=== PATIENT | female | born 1940 | race Caucasian/White ===

== ENCOUNTER → 2017-03-14 | Outpatient (CLI) | payer OTHER, MEDICARE ==
[~2017-03-14] MED LIST: ANAS1TAB19 PO; ASCAUNK PO; ASPEC81 PO; LISI40TA PO; MULT-506 PO; OMEG10007 PO; TRVOPS OPB
--- NOTE | 2017-03-14 14:47 | MAMMOGRAPHY REPORT ---
BILATERAL DIGITAL SCREENING MAMMOGRAM TOMOSYNTHESIS WITH CAD: 03/14/2017 CLINICAL HISTORY: Asymptomatic. Personal history of breast cancer. TECHNIQUE: Breast tomosynthesis in addition to standard 2D mammography was performed. Current study was also evaluated with a Computer Aided Detection (CAD) system. COMPARISON: Comparison is made to exams dated: 03/09/2016 ultrasound, 03/09/2016 mammogram, 03/08/2015 mammogram, 03/06/2014 mammogram, 03/05/2013 mammogram, and 03/04/2012 mammogram - [facility]. BREAST COMPOSITION: The tissue of both breasts is extremely dense, which lowers the sensitivity of m ammography. FINDINGS: A linear scar marker overlies the upper outer quadrant of the left breast. There are 2 jesse gical clips remaining in place. Numerous bilateral benign-appearing coarse calcifications and vascul ar calcification. No new suspicious mass, architectural distortion or cluster of suspicious microcal cifications is seen. IMPRESSION: ACR BI-RADS CATEGORY 1: NEGATIVE There is no mammographic evidence of malignancy. A 1 year screening mammogram is recommended. The pa tient will receive written notification of the results. Approximately 10% of breast cancers are not detected with mammography. A negative mammographic report should not delay biopsy if a clinically suggestive mass is present. Reshma Kelly M.D. ay/:03/14/2017 12:50:38 Child Psychiatrist: Briana Collado, [facility] letter sent: Normal 1/2 BI-RADS Code: ACR BI-RADS Category 1: Negative
== END ==
LOC: C.MAMM 09:21
PROVIDERS: ATTEND Internal Medicine
DX: Z12.31 Encounter for screening mammogram for malignant neoplasm of breast (principal); Z85.3 Personal history of malignant neoplasm of breast

== ENCOUNTER → 2017-11-20 | Outpatient (CLI) | payer OTHER, MEDICARE | END | disposition home or self-care (01) | LOC: C.MAMM 13:49 | PROVIDERS: ATTEND Internal Medicine Hematology & Oncology | DX: C50.919 Malignant neoplasm of unspecified site of unspecified female breast (principal); M81.0 Age-related osteoporosis without current pathological fracture; M85.88 Other specified disorders of bone density and structure, other site ==

== ENCOUNTER 2022-12-20 21:24 | Inpatient (IN) ==
[2022-12-20] MEDS ORDERED: OPTIRAY 320 500ml IV ONE (21:30)
--- NOTE | 2022-12-20 21:35 | Emergency Department Note ---
Impression & Plan Stroke-like symptom ADMIT ED Provider Note HPI: The patient is an 82-year-old female with history of postpolio syndrome, acid reflux, who presents emergency department with stroke symptoms since 1600 today. Patient developed some slurred speech and left upper extremity weakness per family/EMS report. Patient states that this did develop acutely around 4 PM. Patient states she does have some baseline weakness in her left upper extremity but this is much worse than usual. On arrival here to the ED the patient is noted to have weakness in the left upper extremity that is not completely flaccid, she does have some resistance against gravity but otherwise does not have any focal deficits. Facial movements are symmetrical. Patient does not have any slurred speech. Patient is otherwise alert and hemodynamically stable on arrival. ROS: - Per HPI *Outpatient medications and allergy history reviewed. *Pertinent external medical records reviewed. PE: General: Alert HEENT: Normocephalic, trachea midline Eyes: Extraocular eye movement is intact, no scleral erythema Pulmonary: Clear to auscultation bilaterally, no wheezing Cardio: Regular rate and rhythm GI: Abdomen is soft to palpation : No suprapubic tenderness MSK: No evidence of trauma or malformation of the extremities, no edema Skin: No evidence of rash Neuro: Alert, significant drift of the left upper extremity with testing against gravity, no other focal deficits are noted, patient is alert and oriented x3, no ataxia on gawgyk-la-waay testing on the right side, symmetrical facial movements are appreciated Psychiatric: Cooperative awake overnight monitor: (As interpreted by myself): - An order was placed for continuous cardiac monitoring - Patient was noted to be in sinus rhythm with a rate of 75 EKG: (As interpreted by myself): Rate: 77 Rhythm: Sinus rhythm Intervals: VA interval 226 ms, QRS 130 ms, otherwise within normal limits ST changes: No ST elevation Time: 2140 Interventions provided in ED: -Aspirin, rosuvastatin, IV magnesium, IV fluid bolus NIH STROKE SCALE: 1A: Level of consciousness Alert; keenly responsive 0 1B: Ask month and age Both questions right 0 1C: 'Blink eyes' & 'squeeze hands' Performs both tasks 0 2: Horizontal extraocular movements Normal 0 3: Visual moreno No visual loss 0 4: Facial palsy Normal symmetry 0 5A: Left arm motor drift Some effort against gravity +2 5B: Right arm motor drift No drift for 10 seconds 0 6A: Left leg motor drift No drift for 5 seconds 0 6B: Right leg motor drift No drift for 5 seconds 0 7: Limb Ataxia No ataxia 0 8: Sensation Normal; no sensory loss 0 9: Language/aphasia Normal; no aphasia 0 10: Dysarthria Normal 0 11: Extinction/inattention No abnormality 0 TOTAL NIH SCORE = 2 Medical Decision Making: Patient presented to the emergency department with symptoms concerning for an acute ischemic stroke. She is outside the window for tPA by the time she arrived to the ED as symptoms were greater than 4.5 hours prior to arrival. Over concern for the patient's acute onset left upper extremity weakness and the possibility that she may be a thrombectomy candidate, stroke alert was activated from the field via EMS phone call. Shortly after the patient arrived back from CT, NIH stroke scale was obtained, returns at 2 for left upper extremity weakness. Case was discussed with on-call stroke neurology at [facility], Dr. Rosales, who did evaluate the patient via teleneurology service. CT angiography of the head and neck were reviewed, this does show evidence of a complete right internal carotid artery occlusion with contralateral circulation providing apparent adequate flow to the right MCA that does appear to be patent. No evidence of intracranial bleeding. Following evaluation, Dr. Rosales recommends admission here at [facility], aspirin to be administered in addition to rosuvastatin and magnesium for the patient's mild hypomagnesemia. At this time patient is not considered to be a candidate for thrombectomy as her MCA on the right side is patent, this can be readdressed if the patient's symptoms are to acutely worsen. Patient's lab work otherwise shows mild anemia at 8.9, hypomagnesemia 1.6, hyponatremia 127. Patient was given IV fluids and IV magnesium here in the ED. I discussed all the above with the patient, she is in agreement for admission. [facility] hospitalist service was consulted for admission, case was discussed with Dr. Cabrera, who was in agreement for admission. Patient was admitted in stable condition for further care Consultants: - Hospitalist service, Dr. Cabrera - Stroke Neurologist, Dr. Rosales Disposition discussion held by myself with: Patient * CRITICAL CARE TIME: ( 35 ) minutes -Management of patient requiring stroke alert activation for left upper extremity weakness in the setting of being a possible thrombectomy candidate, discussion with other physicians including stroke neurologist at tertiary care center, time spent at the bedside and physical examination, history, and obtaining NIH stroke scale, discussion with hospitalist service and arrangement of admission Diagnosis: 1. Strokelike symptoms, acute 2. Hyponatremia, acute on chronic 3. Hypomagnesemia, acute 4. Anemia, chronic Disposition: Admission Josr Murray, DO Emergency Medicine Past Med/Surg History Social History Smoking Status: Current every day smoker Feels Safe at Home: Yes Allergies Allergies Allergy/AdvReac Type Severity Reaction Status Date / Time capsaicin [Diclopak] Allergy Unknown swelled, Unverified 12/20/22 21:41 itchy diclofenac [Diclopak] Allergy Unknown swelled, Unverified 12/20/22 21:41 itchy exemestane AdvReac Severe severe Unverified 12/20/22 21:41 diarrhea tamoxifen AdvReac Severe severe abd Unverified 12/20/22 21:41 pain Home Meds Home Medications Medication Instructions Recorded Confirmed ascorbic acid (vitamin C) 500 mg 500 mg PO DAILY 12/20/22 12/20/22 tablet (Vitamin C) carvedilol 3.125 mg tablet 6.25 mg PO BID 12/20/22 12/20/22 cholecalciferol (vitamin D3) 10 10 mcg PO DAILY 12/20/22 12/20/22 mcg (400 unit) tablet (Vitamin D3) lisinopril 20 mg tablet 20 mg PO AMHS 12/20/22 12/20/22 multivitamin 1 tab PO DAILY 12/20/22 12/20/22 omega 5-dxh-dyx-fish oil 1,000 mg 1 cap PO DAILY 12/20/22 12/20/22 (120 mg-180 mg) capsule (Fish Oil) omeprazole 20 mg tablet,delayed 20 mg PO DAILYBB 12/20/22 12/20/22 release travoprost 0.004 % eye drops 1 drp OPB DAILY 12/20/22 12/20/22 Results & Data (ED) Vital Signs Vital Signs - 24 hr 12/20/22 21:17 12/20/22 21:26 12/20/22 21:26 Temperature 36.7 C Temperature Source Oral Pulse Rate 76 Pulse Rate [Apical] 74 Pulse Rate from SpO2 Sensor Pulse Rhythm [Apical] Pulse Strength [Apical] Respiratory Rate 24 18 Respiratory Effort / Characteristics Non-Labored Non-Labored Respiratory Depth Normal Normal Respiratory Pattern Blood Pressure 216/112 H Blood Pressure [Left Arm] 203/86 H Blood Pressure Mean 146 Blood Pressure Mean [Left Arm] 125 Blood Pressure Position [Left Arm] Pulse Oximetry 24 L 98 98 Oxygen Delivery Method Room Air Room Air Room Air Sepsis Recent Fever Within 48 Hours No Sepsis New/Unexplained Change in Mental Status No Sepsis Action Taken by Nursing No Action Required 12/20/22 21:39 12/20/22 21:39 12/20/22 21:40 Temperature Temperature Source Pulse Rate 80 80 Pulse Rate [Apical] Pulse Rate from SpO2 Sensor Pulse Rhythm [Apical] Pulse Strength [Apical] Respiratory Rate 16 Respiratory Effort / Characteristics Respiratory Depth Respiratory Pattern Blood Pressure 216/112 H Blood Pressure [Left Arm] Blood Pressure Mean 146 Blood Pressure Mean [Left Arm] Blood Pressure Position [Left Arm] Pulse Oximetry Oxygen Delivery Method Sepsis Recent Fever Within 48 Hours Sepsis New/Unexplained Change in Mental Status Sepsis Action Taken by Nursing 12/20/22 21:40 12/20/22 21:46 12/20/22 21:46 Temperature Temperature Source Pulse Rate 79 76 Pulse Rate [Apical] Pulse Rate from SpO2 Sensor 76 Pulse Rhythm [Apical] Pulse Strength [Apical] Respiratory Rate 23 26 H Respiratory Effort / Characteristics Respiratory Depth Respiratory Pattern Blood Pressure 203/86 H Blood Pressure [Left Arm] Blood Pressure Mean 125 Blood Pressure Mean [Left Arm] Blood Pressure Position [Left Arm] Pulse Oximetry 98 Oxygen Delivery Method Sepsis Recent Fever Within 48 Hours Sepsis New/Unexplained Change in Mental Status Sepsis Action Taken by Nursing 12/20/22 21:50 12/20/22 22:00 12/20/22 22:01 Temperature Temperature Source Pulse Rate 75 75 76 Pulse Rate [Apical] Pulse Rate from SpO2 Sensor 75 74 74 Pulse Rhythm [Apical] Pulse Strength [Apical] Respiratory Rate 22 20 20 Respiratory Effort / Characteristics Respiratory Depth Respiratory Pattern Blood Pressure Blood Pressure [Left Arm] Blood Pressure Mean Blood Pressure Mean [Left Arm] Blood Pressure Position [Left Arm] Pulse Oximetry 98 98 100 Oxygen Delivery Method Sepsis Recent Fever Within 48 Hours Sepsis New/Unexplained Change in Mental Status Sepsis Action Taken by Nursing 12/20/22 22:01 12/20/22 22:10 12/20/22 22:20 Temperature Temperature Source Pulse Rate 77 76 Pulse Rate [Apical] Pulse Rate from SpO2 Sensor 75 Pulse Rhythm [Apical] Pulse Strength [Apical] Respiratory Rate 24 26 H Respiratory Effort / Characteristics Respiratory Depth Respiratory Pattern Blood Pressure 206/73 H Blood Pressure [Left Arm] Blood Pressure Mean 117 Blood Pressure Mean [Left Arm] Blood Pressure Position [Left Arm] Pulse Oximetry 98 Oxygen Delivery Method Sepsis Recent Fever Within 48 Hours Sepsis New/Unexplained Change in Mental Status Sepsis Action Taken by Nursing 12/20/22 22:30 12/20/22 22:40 12/20/22 22:50 Temperature Temperature Source Pulse Rate 78 75 75 Pulse Rate [Apical] Pulse Rate from SpO2 Sensor Pulse Rhythm [Apical] Pulse Strength [Apical] Respiratory Rate 24 20 18 Respiratory Effort / Characteristics Respiratory Depth Respiratory Pattern Blood Pressure Blood Pressure [Left Arm] Blood Pressure Mean Blood Pressure Mean [Left Arm] Blood Pressure Position [Left Arm] Pulse Oximetry Oxygen Delivery Method Sepsis Recent Fever Within 48 Hours Sepsis New/Unexplained Change in Mental Status Sepsis Action Taken by Nursing 12/20/22 22:51 12/20/22 22:51 12/20/22 23:30 Temperature Temperature Source Pulse Rate 76 Pulse Rate [Apical] 72 Pulse Rate from SpO2 Sensor 75 Pulse Rhythm [Apical] Regular Pulse Strength [Apical] Normal Respiratory Rate 20 17 Respiratory Effort / Characteristics Non-Labored Spontaneous Respiratory Depth Normal Respiratory Pattern Regular Blood Pressure 191/80 H Blood Pressure [Left Arm] 180/78 H Blood Pressure Mean 117 Blood Pressure Mean [Left Arm] 112 Blood Pressure Position [Left Arm] Lying Pulse Oximetry 97 98 Oxygen Delivery Method Room Air Sepsis Recent Fever Within 48 Hours Sepsis New/Unexplained Change in Mental Status Sepsis Action Taken by Nursing 12/21/22 01:00 12/21/22 01:19 Temperature Temperature Source Pulse Rate 70 Pulse Rate [Apical] 70 Pulse Rate from SpO2 Sensor Pulse Rhythm [Apical] Regular Pulse Strength [Apical] Normal Respiratory Rate 18 18 Respiratory Effort / Characteristics Non-Labored Spontaneous Respiratory Depth Normal Respiratory Pattern Regular Blood Pressure 178/74 H Blood Pressure [Left Arm] 178/74 H Blood Pressure Mean Blood Pressure Mean [Left Arm] 108 Blood Pressure Position [Left Arm] Lying Pulse Oximetry 98 98 Oxygen Delivery Method Room Air Room Air Sepsis Recent Fever Within 48 Hours Sepsis New/Unexplained Change in Mental Status Sepsis Action Taken by Nursing Laboratory Data 12/20/22 21:44 12/20/22 21:44 Lab Results 12/20/22 12/20/22 12/20/22 Range/Units 21:44 21:44 21:44 WBC 3.78 L (4.8-10.8) K/ul RBC 3.83 L (4.20-5.40) M/uL Hgb 8.9 L (12.0-16.0) g/dl POC Hgb (12.0-16.0) g/dl Hct 27.1 L (37.0-47.0) % POC Hct (37-47) % MCV 70.8 L (80.0-100.0) fL MCH 23.2 L (25.0-34.0) pg MCHC 32.8 (32.0-36.0) g/dL RDW Std Deviation 42.7 (36.4-46.3) fL RDW Coeff of Kaye 16.9 H (11.5-14.5) % Plt Count 425 H (130-400) K/uL MPV 9.8 (9.4-12.4) fL Immature Gran % (Auto) 0.3 % Neut % (Auto) 68.7 % Lymph % (Auto) 21.7 % Mora % (Auto) 8.5 % Eos % (Auto) 0.0 % Baso % (Auto) 0.8 % Neut # (Auto) 2.60 (1.40-6.50) K/uL Lymph # (Auto) 0.82 L (1.2-3.4) K/uL Mora # (Auto) 0.32 (0.11-0.59) K/uL Eos # (Auto) 0.00 (0-0.50) K/uL Baso # (Auto) 0.03 (0-0.2) K/uL Immature Gran # (Auto) 0.01 (0.01-0.20) K/uL PT 11.3 (9.0-12.0) Seconds INR 1.1 (0.9-1.1) APTT 26.5 (21.0-31.0) Seconds PTT Ratio 1.0 POC Sodium (135-144) mmol/L Sodium (136-145) mmol/L POC Potassium (3.3-5.0) mmol/L Potassium (3.5-5.1) mmol/L POC Chloride (101-112) mmol/L Chloride (98-107) mmol/L Carbon Dioxide (21-32) mmol/L POC Total CO2 (24-31) mmol/L Anion Gap (3-11) POC Anion Gap (16-25) mmol/L POC BUN (7-18) mg/dl BUN (6-23) mg/dl Creatinine (0.6-1.2) mg/dl POC Creatinine (0.6-1.3) mg/dl Est Cr Clr Drug Dosing ml/min Est GFR ( Amer) ml/min Est GFR (Non-Af Amer) ml/min BUN/Creatinine Ratio (10-20) Glucose (70-99(Fasting)) mg/dl POC Glucose (other) (70-99) mg/dl Calcium (8.6-10.3) mg/dl POC Ioniz Calcium Hu (1.12-1.32) mmol/l Magnesium (1.7-2.4) mg/dl Total Bilirubin (0.2-1.0) mg/dl AST (13-39) U/L ALT (7-52) U/L Alkaline Phosphatase (34-104) U/L Troponin I High Sens (0-14) pg/ml Total Protein (6.0-8.3) gm/dl Albumin (3.4-5.0) gm/dl Globulin (2.5-4.0) gm/dl Albumin/Globulin Ratio (0.9-2) SARS-CoV-2, RNA, NAAT (NEGATIVE) Blood Type A Positive Antibody Screen NEGATIVE 12/20/22 12/20/22 12/20/22 Range/Units 21:44 21:48 22:08 WBC (4.8-10.8) K/ul RBC (4.20-5.40) M/uL Hgb (12.0-16.0) g/dl POC Hgb 10.5 L (12.0-16.0) g/dl Hct (37.0-47.0) % POC Hct 31 L (37-47) % MCV (80.0-100.0) fL MCH (25.0-34.0) pg MCHC (32.0-36.0) g/dL RDW Std Deviation (36.4-46.3) fL RDW Coeff of Kaye (11.5-14.5) % Plt Count (130-400) K/uL MPV (9.4-12.4) fL Immature Gran % (Auto) % Neut % (Auto) % Lymph % (Auto) % Mora % (Auto) % Eos % (Auto) % Baso % (Auto) % Neut # (Auto) (1.40-6.50) K/uL Lymph # (Auto) (1.2-3.4) K/uL Mora # (Auto) (0.11-0.59) K/uL Eos # (Auto) (0-0.50) K/uL Baso # (Auto) (0-0.2) K/uL Immature Gran # (Auto) (0.01-0.20) K/uL PT (9.0-12.0) Seconds INR (0.9-1.1) APTT (21.0-31.0) Seconds PTT Ratio POC Sodium 129 L (135-144) mmol/L Sodium 127 L (136-145) mmol/L POC Potassium 3.6 (3.3-5.0) mmol/L Potassium 3.5 (3.5-5.1) mmol/L POC Chloride 93 L (101-112) mmol/L Chloride 97 L (98-107) mmol/L Carbon Dioxide 23 (21-32) mmol/L POC Total CO2 22 L (24-31) mmol/L Anion Gap 7 (3-11) POC Anion Gap 19.0 (16-25) mmol/L POC BUN 12 (7-18) mg/dl BUN 13 (6-23) mg/dl Creatinine 0.43 L (0.6-1.2) mg/dl POC Creatinine 0.3 L (0.6-1.3) mg/dl Est Cr Clr Drug Dosing 85.2 ml/min Est GFR ( Amer) 109.0 ml/min Est GFR (Non-Af Amer) 94.1 ml/min BUN/Creatinine Ratio 30.2 H (10-20) Glucose 199 H (70-99(Fasting)) mg/dl POC Glucose (other) 193 H (70-99) mg/dl Calcium 8.9 (8.6-10.3) mg/dl POC Ioniz Calcium Hu 1.17 (1.12-1.32) mmol/l Magnesium 1.6 L (1.7-2.4) mg/dl Total Bilirubin 0.3 (0.2-1.0) mg/dl AST 15 (13-39) U/L ALT 8 (7-52) U/L Alkaline Phosphatase 87 (34-104) U/L Troponin I High Sens 10.7 (0-14) pg/ml Total Protein 6.7 (6.0-8.3) gm/dl Albumin 3.8 (3.4-5.0) gm/dl Globulin 2.9 (2.5-4.0) gm/dl Albumin/Globulin Ratio 1.3 (0.9-2) SARS-CoV-2, RNA, NAAT NEGATIVE (NEGATIVE) Blood Type Antibody Screen Administered Medications Discontinued Medications Aspirin (Aspirin Chew 324 Mg) 324 mg PO NOW STA Stop: 12/20/22 22:41 Last Admin: 12/20/22 23:20 Dose: 324 mg Documented By: JERRELL Magnesium Sulfate/Dextrose (Magnesium Sulfate / D5w) 1 gm in 100 mls @ 200 mls/hr IV Q30M RENATO Stop: 12/20/22 23:39 Last Infusion: 12/21/22 00:27 Dose: 0 mls/hr Documented By: Admin: 12/20/22 23:55 Dose: 200 mls/hr Documented By: Infusion: 12/20/22 23:54 Dose: 0 mls/hr Documented By: Admin: 12/20/22 23:23 Dose: 200 mls/hr Documented By: JERRELL Sodium Chloride (Nss 1000ml) 500 mls @ 999 mls/hr IV .Q31M ONE Stop: 12/21/22 00:19 Last Infusion: 12/21/22 00:57 Dose: 0 mls/hr Documented By: Admin: 12/21/22 00:26 Dose: 999 mls/hr Documented By: JERRELL Ioversol (Optiray 320 500ml) 125 ml IV ONCE ONE Stop: 12/20/22 21:31 Last Admin: 12/20/22 21:30 Dose: 117 ml Documented By: STEPHANE Rosuvastatin Calcium (Rosuvastatin Calcium 20 Mg Tab) 20 mg PO NOW STA Stop: 12/20/22 22:42 Last Admin: 12/20/22 23:19 Dose: 20 mg Documented By: JERRELL Imaging Data Radiologist's Impression: Head CT 12/20/22 21:22 CR Exam(s): CT HEAD Without Contrast EXAM: CT Head Without Intravenous Contrast CLINICAL HISTORY: neuro deficit, acute stroke suspected. TECHNIQUE: Axial computed tomography images of the head/brain without intravenous contrast. CTDI is 72.16 mGy and DLP is 1252.22 mGy-cm. Automated exposure control was utilized for the study. A dose lowering technique was utilized adhering to the principles of ALARA. COMPARISON: No relevant prior studies available. FINDINGS: Brain: No intracranial hemorrhage. No significant mass effect. No evidence for cortical infarct. Mild prominence of the cerebral sulci and sylvian fissures. Mild periventricular deep white matter hypodense changes noted. Ventricles: Unremarkable. No midline shift or ventriculomegaly. Bones/joints: Unremarkable. No acute fracture. Soft tissues: Unremarkable. Sinuses: Unremarkable as visualized. No acute sinusitis. Mastoid air cells: Unremarkable as visualized. No mastoid effusion. IMPRESSION: No acute intracranial process identified. Communications: Call Doctor Stroke Electronically signed by: Taiwo Delgado MD 12/20/22 21:42 PM Head CTA 12/20/22 21:22 CR Exam(s): CTA HEAD With Contrast IV Amt: 117 ML OPTIRAY 320 EXAM: CT Angiography Head With Intravenous Contrast CLINICAL HISTORY: neuro deficit, acute stroke suspected. TECHNIQUE: Axial computed tomographic angiography images of the head with intravenous contrast. CTDI is 19.8 mGy and DLP is 9.9 mGy-cm. Automated exposure control was utilized for the study. A dose lowering technique was utilized adhering to the principles of ALARA. MIP reconstructed images were created and reviewed. CONTRAST: Patient received 117 ML OPTIRAY 320 of IV contrast COMPARISON: No relevant prior studies available. FINDINGS: Right internal carotid artery: The right internal carotid artery is occluded from the cervical region through the petrous portion. There is reconstitution in the cavernous segment of the right internal carotid artery. The supraclinoid portion is patent, presumably from collateral flow. No aneurysm. Right anterior cerebral artery: The right A1 segment is patent. The right anterior cerebral artery is patent. No occlusion or significant stenosis. No aneurysm. Right middle cerebral artery: The right M1 segment and distal middle cerebral branches are patent, although slightly diminutive in appearance when compared to the previous examination. No thrombus burden identified. No aneurysm. Right posterior cerebral artery: The right posterior cerebral artery demonstrates a origin via the right posterior communicating artery. The posterior cerebral artery is patent. No occlusion or significant stenosis. No aneurysm. Right vertebral artery: The distal right vertebral artery is small in caliber but is patent. Left internal carotid artery: No acute findings. Intracranial segment is patent with no significant stenosis. No aneurysm. Left anterior cerebral artery: Unremarkable. No occlusion or significant stenosis. No aneurysm. Left middle cerebral artery: Unremarkable. No occlusion or significant stenosis. No aneurysm. Left posterior cerebral artery: Unremarkable. No occlusion or significant stenosis. No aneurysm. Left vertebral artery: Unremarkable as visualized. Basilar artery: Unremarkable. No occlusion or significant stenosis. No aneurysm. IMPRESSION: 1. The right internal carotid artery is occluded from the cervical region through the petrous portion. There is reconstitution in the cavernous segment of the right internal carotid artery. The supraclinoid portion is patent, presumably from collateral flow. 2. The right M1 segment and distal middle cerebral branches are patent, although slightly diminutive in appearance when compared to the previous examination. No thrombus burden identified. If there is concern for insufficient perfusion to the right MCA or right NEEDLEWORKER territory, CT perfusion or MRI is strongly recommended. 3. The right posterior cerebral artery demonstrates a origin via the right posterior communicating artery. The posterior cerebral artery is patent. However, given the proximal internal carotid artery occlusion, please correlate with clinical symptoms. Communications: Verify Receipt Call Doctor Stroke Electronically signed by: Taiwo Delgado MD 12/20/22 21:51 PM Neck CTA 12/20/22 21:22 CR Exam(s): CTA NECK With Contrast IV Amt: 117 ML OPTIRAY 320 EXAM: CT Angiography Neck With Intravenous Contrast CLINICAL HISTORY: neuro deficit, acute stroke suspected. TECHNIQUE: Routine carotid CT angiography protocol was performed with intravenous contrast. NASCET criteria using the distal ICAs for comparison were used for evaluation of stenoses. CTDI is 8.49 mGy and DLP is 320.92 mGy-cm. Automated exposure control was utilized for the study. A dose lowering technique was utilized adhering to the principles of ALARA. MIP reconstructed images were created and reviewed. CONTRAST: Patient received 117 ML OPTIRAY 320 of IV contrast COMPARISON: None. FINDINGS: VASCULATURE: Right common carotid artery: Unremarkable. No occlusion or significant stenosis. No dissection. Right internal carotid artery: There is a partially calcified atheromatous disease involving the proximal right internal carotid artery at the bifurcation. There is occlusion of the right internal carotid artery immediately beyond the bifurcation. This remains occluded throughout its cervical course to the skull base. Right external carotid artery: Unremarkable. No occlusion. Right vertebral artery: The right vertebral artery is small in caliber but is patent throughout its course. No occlusion or significant stenosis. No dissection. Left common carotid artery: There is some intimal hyperplasia and eccentric atheromatous material throughout the left common carotid artery with mild (less than 50%) stenosis. No occlusion or high-grade stenosis noted. Left internal carotid artery: Atherosclerotic calcification with mild atheromatous changes involving the proximal left internal carotid artery. No significant stenosis. The mid to distal left internal carotid artery is patent. No dissection. Left external carotid artery: Unremarkable. No occlusion. Left vertebral artery: Unremarkable. No occlusion or significant stenosis. No dissection. Brachiocephalic and subclavian arteries: There is a type III branching pattern of the proximal great vessels without significant ostial stenosis. Aorta: The aorta is patent with atherosclerotic changes. NECK: Bones/joints: Unremarkable. Soft tissues: Unremarkable. Lung apices: Clear. CAROTID STENOSIS REFERENCE USING NASCET CRITERIA: % ICA stenosis = (1 - narrowest ICA diameter/diameter of distal cervical ICA) x 100. Mild - <50% stenosis. Moderate - 50-69% stenosis. Severe - 70-94% stenosis. Near occlusion - 95-99% stenosis. Occluded - 100% stenosis. IMPRESSION: 1. There is occlusion of the right internal carotid artery immediately beyond the bifurcation. This remains occluded throughout its cervical course to the skull base. 2. There is some intimal hyperplasia and eccentric atheromatous material throughout the left common carotid artery with mild (less than 50%) stenosis. No occlusion or high-grade stenosis noted. 3. Otherwise no significant abnormality involving the cervical arterial examination. Communications: Call Doctor Stroke Electronically signed by: Taiwo Delgado MD 12/20/22 21:55 PM Discharge Plan Visit Data Chief Complaint: Stroke Alert Stated Complaint: STROKE ED Provider: Josr Murray Discharge Problem: Stroke-like symptom Patient Disposition: Admitted As Inpatient Discharge Instructions Interventions: ED Discharge Assessment Last Done: 12/21/22 01:19
--- NOTE | 2022-12-20 21:42 | CT Scan Report ---
Exam(s): CT HEAD Without Contrast EXAM: CT Head Without Intravenous Contrast CLINICAL HISTORY: neuro deficit, acute stroke suspected. TECHNIQUE: Axial computed tomography images of the head/brain without intravenous contrast. CTDI is 72.16 mGy and DLP is 1252.22 mGy-cm. Automated exposure control was utilized for the study. A dose lowering technique was utilized adhering to the principles of ALARA. COMPARISON: No relevant prior studies available. FINDINGS: Brain: No intracranial hemorrhage. No significant mass effect. No evidence for cortical infarct. Mild prominence of the cerebral sulci and sylvian fissures. Mild periventricular deep white matter hypodense changes noted. Ventricles: Unremarkable. No midline shift or ventriculomegaly. Bones/joints: Unremarkable. No acute fracture. Soft tissues: Unremarkable. Sinuses: Unremarkable as visualized. No acute sinusitis. Mastoid air cells: Unremarkable as visualized. No mastoid effusion. IMPRESSION: No acute intracranial process identified. Communications: Call Doctor Stroke Electronically signed by: Taiwo Delgado MD 12/20/22 21:42 PM
--- NOTE | 2022-12-20 21:52 | CT Scan Report ---
Exam(s): CTA HEAD With Contrast IV Amt: 117 ML OPTIRAY 320 EXAM: CT Angiography Head With Intravenous Contrast CLINICAL HISTORY: neuro deficit, acute stroke suspected. TECHNIQUE: Axial computed tomographic angiography images of the head with intravenous contrast. CTDI is 19.8 mGy and DLP is 9.9 mGy-cm. Automated exposure control was utilized for the study. A dose lowering technique was utilized adhering to the principles of ALARA. MIP reconstructed images were created and reviewed. CONTRAST: Patient received 117 ML OPTIRAY 320 of IV contrast COMPARISON: No relevant prior studies available. FINDINGS: Right internal carotid artery: The right internal carotid artery is occluded from the cervical region through the petrous portion. There is reconstitution in the cavernous segment of the right internal carotid artery. The supraclinoid portion is patent, presumably from collateral flow. No aneurysm. Right anterior cerebral artery: The right A1 segment is patent. The right anterior cerebral artery is patent. No occlusion or significant stenosis. No aneurysm. Right middle cerebral artery: The right M1 segment and distal middle cerebral branches are patent, although slightly diminutive in appearance when compared to the previous examination. No thrombus burden identified. No aneurysm. Right posterior cerebral artery: The right posterior cerebral artery demonstrates a origin via the right posterior communicating artery. The posterior cerebral artery is patent. No occlusion or significant stenosis. No aneurysm. Right vertebral artery: The distal right vertebral artery is small in caliber but is patent. Left internal carotid artery: No acute findings. Intracranial segment is patent with no significant stenosis. No aneurysm. Left anterior cerebral artery: Unremarkable. No occlusion or significant stenosis. No aneurysm. Left middle cerebral artery: Unremarkable. No occlusion or significant stenosis. No aneurysm. Left posterior cerebral artery: Unremarkable. No occlusion or significant stenosis. No aneurysm. Left vertebral artery: Unremarkable as visualized. Basilar artery: Unremarkable. No occlusion or significant stenosis. No aneurysm. IMPRESSION: 1. The right internal carotid artery is occluded from the cervical region through the petrous portion. There is reconstitution in the cavernous segment of the right internal carotid artery. The supraclinoid portion is patent, presumably from collateral flow. 2. The right M1 segment and distal middle cerebral branches are patent, although slightly diminutive in appearance when compared to the previous examination. No thrombus burden identified. If there is concern for insufficient perfusion to the right MCA or right PILE DRIVER ENGINEER territory, CT perfusion or MRI is strongly recommended. 3. The right posterior cerebral artery demonstrates a origin via the right posterior communicating artery. The posterior cerebral artery is patent. However, given the proximal internal carotid artery occlusion, please correlate with clinical symptoms. Communications: Verify Receipt Call Doctor Stroke Electronically signed by: Taiwo Delgado MD 12/20/22 21:51 PM
--- NOTE | 2022-12-20 21:56 | CT Scan Report ---
Exam(s): CTA NECK With Contrast IV Amt: 117 ML OPTIRAY 320 EXAM: CT Angiography Neck With Intravenous Contrast CLINICAL HISTORY: neuro deficit, acute stroke suspected. TECHNIQUE: Routine carotid CT angiography protocol was performed with intravenous contrast. NASCET criteria using the distal ICAs for comparison were used for evaluation of stenoses. CTDI is 8.49 mGy and DLP is 320.92 mGy-cm. Automated exposure control was utilized for the study. A dose lowering technique was utilized adhering to the principles of ALARA. MIP reconstructed images were created and reviewed. CONTRAST: Patient received 117 ML OPTIRAY 320 of IV contrast COMPARISON: None. FINDINGS: VASCULATURE: Right common carotid artery: Unremarkable. No occlusion or significant stenosis. No dissection. Right internal carotid artery: There is a partially calcified atheromatous disease involving the proximal right internal carotid artery at the bifurcation. There is occlusion of the right internal carotid artery immediately beyond the bifurcation. This remains occluded throughout its cervical course to the skull base. Right external carotid artery: Unremarkable. No occlusion. Right vertebral artery: The right vertebral artery is small in caliber but is patent throughout its course. No occlusion or significant stenosis. No dissection. Left common carotid artery: There is some intimal hyperplasia and eccentric atheromatous material throughout the left common carotid artery with mild (less than 50%) stenosis. No occlusion or high-grade stenosis noted. Left internal carotid artery: Atherosclerotic calcification with mild atheromatous changes involving the proximal left internal carotid artery. No significant stenosis. The mid to distal left internal carotid artery is patent. No dissection. Left external carotid artery: Unremarkable. No occlusion. Left vertebral artery: Unremarkable. No occlusion or significant stenosis. No dissection. Brachiocephalic and subclavian arteries: There is a type III branching pattern of the proximal great vessels without significant ostial stenosis. Aorta: The aorta is patent with atherosclerotic changes. NECK: Bones/joints: Unremarkable. Soft tissues: Unremarkable. Lung apices: Clear. CAROTID STENOSIS REFERENCE USING NASCET CRITERIA: % ICA stenosis = (1 - narrowest ICA diameter/diameter of distal cervical ICA) x 100. Mild - <50% stenosis. Moderate - 50-69% stenosis. Severe - 70-94% stenosis. Near occlusion - 95-99% stenosis. Occluded - 100% stenosis. IMPRESSION: 1. There is occlusion of the right internal carotid artery immediately beyond the bifurcation. This remains occluded throughout its cervical course to the skull base. 2. There is some intimal hyperplasia and eccentric atheromatous material throughout the left common carotid artery with mild (less than 50%) stenosis. No occlusion or high-grade stenosis noted. 3. Otherwise no significant abnormality involving the cervical arterial examination. Communications: Call Doctor Stroke Electronically signed by: Taiwo Delgado MD 12/20/22 21:55 PM
[2022-12-20 22:01] LABS: iSTAT Creatinine 0.3 mg/dl (0.6-1.3); iSTAT Hemoglobin 10.5 g/dl (12.0-16.0); iSTAT Ionized Calcium 1.17 mmol/l (1.12-1.32); iSTAT Potassium 3.6 mmol/L (3.3-5.0)
[2022-12-20 22:04] LABS: Basophils # (auto) 0.03 K/uL (0-0.2); Basophils % (auto) 0.8 %; Hematocrit (blood only) 27.1 % (37.0-47.0); Hemoglobin 8.9 g/dl (12.0-16.0); Immature Granulocytes # (auto) 0.01 K/uL (0.01-0.20); Immature Granulocytes % (auto) 0.3 %; Lymphocytes # (auto) 0.82 K/uL (1.2-3.4); Lymphocytes % (auto) 21.7 %; Mean Corpuscular Hemoglobin 23.2 pg (25.0-34.0); Mean Corpuscular Hgb Conc 32.8 g/dL (32.0-36.0); Mean Corpuscular Volume 70.8 fL (80.0-100.0); Mean Platelet Volume 9.8 fL (9.4-12.4); Monocytes # (auto) 0.32 K/uL (0.11-0.59); Monocytes % (auto) 8.5 %; Neutrophils % (auto) 68.7 %; Platelet Count 425 K/uL (130-400); RDW Coefficient of Variation 16.9 % (11.5-14.5); RDW Standard Deviation 42.7 fL (36.4-46.3); Red Blood Count 3.83 M/uL (4.20-5.40); White Blood Count 3.78 K/ul (4.8-10.8)
[2022-12-20 22:16] LABS: INR 1.1 (0.9-1.1); Partial Thromboplastin Time 26.5 Seconds (21.0-31.0); Prothrombin Time 11.3 Seconds (9.0-12.0)
[2022-12-20 22:30] LABS: Albumin Level 3.8 gm/dl (3.4-5.0); Bilirubin,Total 0.3 mg/dl (0.2-1.0); Calcium 8.9 mg/dl (8.6-10.3); Magnesium 1.6 mg/dl (1.7-2.4); Potassium 3.5 mmol/L (3.5-5.1)
[2022-12-20 22:36] LABS: Albumin Globulin Ratio 1.3 (0.9-2); BUN Creatinine Ratio 30.2 (10-20); Creatinine Clr Calc Pharmacy 85.2 ml/min; Est GFR (Non-African American) 94.1 ml/min; Globulin 2.9 gm/dl (2.5-4.0); Total Protein 6.7 gm/dl (6.0-8.3)
[2022-12-20 22:40] LABS: Troponin I High Sensitivity 10.7 pg/ml (0-14)
[2022-12-20] MEDS ORDERED: ASPIRIN CHEW 324 MG PO STA (22:40)
[2022-12-20] MEDS ORDERED: ROSUVASTATIN CALCIUM 20 MG TAB PO STA (22:41)
[2022-12-20] MEDS: MAGNESIUM SULFATE / D5W 1 GM/100 ML BAG IV SCH ×2 (23:23→23:55)
[2022-12-20] MEDS ORDERED: SODIUM CHLORIDE 0.9% 1000ML 500 ML IV ONE (23:49)
[2022-12-21] MEDS ORDERED: ACETAMINOPHEN 325 MG TAB PO PRN (01:48)
[2022-12-21] MEDS ORDERED: POLYETHYLENE (MIRALAX) 17 GM PACK PO PRN (01:48)
[2022-12-21] MEDS ORDERED: PHARMACIST DISCHARGE MED REC CONSULT PRN (01:48)
[2022-12-21] MEDS ORDERED: hydrALAZINE HCL 20 MG/ML VIAL IV PRN (01:48)
[2022-12-21] MEDS ORDERED: NITROGLYCERIN SL 0.4 MG/TAB TAB SL PRN (01:48)
[2022-12-21] MEDS ORDERED: FOLIC ACID 1 MG in SYRINGE 9.8 ML IV ONE (02:00)
[2022-12-21] MEDS ORDERED: THIAMINE HCL 200 MG in SODIUM CHLORIDE 0.9% 50 ML IV ONE (02:00)
[2022-12-21] MEDS ORDERED: GADOBUTROL 65ML VIAL IV ONE (03:19)
--- NOTE | 2022-12-21 03:48 | Magnetic Resonance Report ---
Exam(s): MRI HEAD W/WO Contrast IV Amt: 5cc gadavist EXAM: MR Head Without and With Intravenous Contrast CLINICAL HISTORY: acute cva. TECHNIQUE: Magnetic resonance images of the head/brain without and with intravenous contrast in multiple planes. CONTRAST: Patient received 5cc Gadavist of IV contrast COMPARISON: Intracranial CTA examination performed 12/20/2022 at 2128 hrs. FINDINGS: Brain: Abnormal foci of diffusion restriction involving the right parietal region adjacent to the central sulcus. There is also a focus of diffusion restriction in the periventricular deep white matter of the right parietal region and in the subcortical white matter of the right occipital region. No intracranial hemorrhage. No significant mass effect. Mild prominence of the cerebral sulci and sylvian fissures is noted. Hyperintense T2 periventricular deep white matter changes noted diffusely. Ventricles: Unremarkable. No ventriculomegaly. Bones/joints: Unremarkable. Sinuses: Unremarkable as visualized. No acute sinusitis. Mastoid air cells: Unremarkable as visualized. No mastoid effusion. Orbits: Unremarkable as visualized. Internal carotid arteries: The petrous and cavernous right internal carotid artery demonstrates asymmetric increased signal without a normal vascular flow void, consistent with occlusion noted on the CT examination performed earlier. IMPRESSION: Abnormal foci of diffusion restriction involving the right parietal region adjacent to the central sulcus. There is also a focus of diffusion restriction in the periventricular deep white matter of the right parietal region and in the subcortical white matter of the right occipital region. Findings are most consistent with areas of ischemia. No significant mass effect or midline shift. No evidence for hemorrhagic transformation. No abnormal contrast enhancement. Electronically signed by: Taiwo Delgado MD 12/21/22 03:48 AM
[2022-12-21] MEDS: SODIUM CHLORIDE 0.9% 1000ML 1,000 ML IV SCH ×2 (04:06→13:56)
--- NOTE | 2022-12-21 05:01 | History and Physical Report ---
DATE OF ADMISSION: 12/21/2022. CHIEF COMPLAINT: Acute CVA. HISTORY OF PRESENT ILLNESS: An 82-year-old female with past medical history significant for hypertension, thoracic aortic aneurysm, benign neoplasm of colon, generalized osteoarthrosis, history of iron deficiency anemia, history of monoclonal gammopathy of unknown significance, history of tobacco use disorder, history of post-polio syndrome, history of breast cancer, history of gastric ulcer. Comes from home because of weakness and stroke-like symptoms. The patient says around 4:00 p.m., she noticed left hand and arm were weak.She has chronic weakness in the lower extremities. Question of slurred speech She was brought in here. The symptoms, looks like as per the ER, there was also some slurred speech, but currently the patient's speech seems okay and the patient says her weakness in the left hand also is getting better. 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 She is able to lift her left upper extremity currently and as per the ER, she had a flaccid left upper extremity when she came in. When she came in Stroke alert was called. CT of the head with contrast okay. CTA of the head and neck shows right internal carotid artery is occluded from the cervical region through the petrous portion. There is a reconstitution in the cavernous segment of the internal carotid artery. The supraclinoid portion is patent, possibly from collateral flow. The right M1 segment and distal middle cerebral arteries are patent, although slightly diminutive in appearance when compared to the previous examination. No thrombus burden identified. [facility] neurology thought that currently she is not a candidate for any intervention. She was loaded with aspirin and also statin and if anything changes to call them back. Currently, the patient is alert, awake, and oriented to name and place. Could tell her date of , could today tell the current month, but could not tell the year. She says her symptoms are getting better. Denies any headache, denies any blurred vision or double vision. No earache, no runny nose, no sore throat, no cough, no recent fevers, no nausea, no chest pain, no shortness of breath, no abdominal pain. She says she has normal bowel and bladder movements. Ambulates okay at home. ALLERGIES: CAPSAICIN, DICLOFENAC, EXEMESTANE, TAMOXIFEN. PAST MEDICAL HISTORY: As mentioned above. PAST SURGICAL HISTORY: Colonoscopy, EGDs, left ankle fusion surgery in 1955 for polio, left breast lumpectomy in 2010 for breast cancer, cataract surgery, tonsillectomy and adenoidectomy. MEDICATIONS: The patient is on ascorbic acid 500 mg p.o. daily, Coreg 6.25 mg p.o. b.i.d., vitamin D 10 mcg p.o. daily, lisinopril 20 mg p.o. b.i.d., multivitamin 1 tablet p.o. daily, omega fish oil 1 capsule p.o. daily, omeprazole 20 mg p.o. daily, travoprost 1 drop ophthalmic daily. FAMILY HISTORY: Significant for sister has CABG, breast cancer, cerebral aneurysm; brother has heart disorder; father had heart disorder; mother had hypertension, NE, pacemaker, renal tumor, Alzheimer disease, at age of 94; brother has rheumatoid arthritis; father had rheumatic heart disease, at age of 50. SOCIAL HISTORY: , smoked half pack a day for 20 years. Alcohol, she drinks 2 to 3 glasses of red wine daily. No drug use. REVIEW OF SYSTEMS: As per HPI. Rest of the review of systems is negative. PHYSICAL EXAMINATION: GENERAL: The patient is alert and awake, not in acute distress. VITAL SIGNS: Temperature 36.7, pulse 102, respiratory rate 17, blood pressure 118/78, oxygen 98% on room air. HEENT: Pupils equal, round, and reactive to light. Extraocular muscles intact. NECK: No JVD, no neck masses. CARDIOVASCULAR: S1 and S2 heard. Regular rate and rhythm. No murmur, no gallop. RESPIRATORY SYSTEM: Normal AP diameter. No accessory muscle use. No wheezing, no crackles. ABDOMEN: Soft, bowel sounds present, nontender, no distention. CENTRAL NERVOUS SYSTEM: Alert and oriented to name and place, could today tell the month, but could not tell the year. Speech is okay. No obvious facial droop seen. 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 Can lift the left upper extremity up, can lift both lower extremities up and hold for a few seconds. Difficult for coordination of movements, Left upper extremity drifting down LABORATORY DATA: WBC 3.7, hemoglobin 8.9, hematocrit 37.1, platelets 425. PT 11.3, INR 1.1, APTT 26.5. Sodium 127, potassium 3.5, chloride 97, CO2 of 23, BUN 13, creatinine 0.4, serum glucose 199, magnesium 1.6, total bilirubin 0.3, AST 15, ALT 8, alkaline phosphatase 87. Troponin I high sensitivity 10.7. SARS-CoV-2 rapid test negative. IMAGING DATA: CTA of the neck: 1. There is occlusion of the right internal carotid artery immediately beyond the bifurcation. This remains occluded throughout its cervical course to the skull base. 2. There is some intimal hyperplasia and eccentric atheromatous material throughout the left common carotid artery with mild (less than 50%) stenosis. No occlusion or high-grade stenosis noted. 3. Otherwise no significant abnormality involving the cervical arterial examination. CTA head: 1. The right internal carotid artery is occluded from the cervical region through the petrous portion. There is reconstitution in the cavernous segment of the right internal carotid artery. The supraclinoid portion is patent, presumably from collateral flow. 2. The right M1 segment and distal middle cerebral branches are patent, although slightly diminutive in appearance when compared to the previous examination. No thrombus burden identified. If there is concern for insufficient perfusion to the right MCA or right KEY PUNCH OPERATOR territory, CT perfusion or MRI is strongly recommended. 3. The right posterior cerebral artery demonstrates a origin via the right posterior communicating artery. The posterior cerebral artery is patent. However, given the proximal internal carotid artery occlusion, please correlate with clinical symptoms. CT of the head without contrast, no acute findings. EKG: Sinus rhythm with first-degree AV block at the rate of 77, possible left atrial enlargement, right bundle-branch block seen. ASSESSMENT AND PLAN: This is an 82-year-old female who presents with stroke- like symptoms. 1. Acute cerebrovascular accident with weakness in the left upper extremity in the hand and forearm, symptoms seem to be improving. Imaging studies are showing occlusion of the right carotid artery from the cervical region through the petrous portion and reconstitution of the cavernous segment of the right internal carotid artery. The supraclinoid portion is patent, possibly from collateral flow. The M1 segment and distal middle cerebral branches are patent, although slightly diminutive from the previous exam. No thrombus were identified. [facility] neurologist thought that no intervention is needed at this time and was loaded with aspirin and statin, and also given magnesium and fluids and to call back [place] if anything changes. Will do the full stroke workup with MRI scan. Continue with IV fluids. Permissive hypertension. Echocardiogram. Monitor in the tele floor. Consult neurology in the a.m. PT, OT. Will keep n.p.o. until seen by speech. 2. Hypertension: Would allow permissive hypertension. Continue her Coreg. Will hold the lisinopril and place on hydralazine p.r.n. 3. History of gastric ulcer in the past, history of and AVMs and Damian's. She was on iron supplements in the past. Her EGD done in November 2021 was unremarkable. Today, her hemoglobin is 8.9. Will follow the stool Hemoccult, vitamin B12, folate levels, and iron studies. Once stable, will consult GI. Continue omeprazole for now. 4. Alcoholism: Drinks 2-3 glasses of red wine daily. Denies any withdrawal symptoms. Will give a dose of thiamine and folic acid. Continue her home multivitamins. Monitor for any withdrawal symptoms. 5. Tobacco abuse. 6. History of thoracic aortic aneurysm: Will follow the echo report. 7. History of left breast cancer in 2010: Status post partial left breast lumpectomy. 8. Hx of Post Polio syndrome. PT/OT 9. Deep venous thrombosis prophylaxis: Will place on SCDs. DISPOSITION: Closely monitor in the tele floor. Level 1 full code. PT/OT prior to discharge. Social service to help with discharge planning. Job ID: [id number] [id number]
[2022-12-21 06:27] LABS: Basophils # (auto) 0.02 K/uL (0-0.2); Basophils % (auto) 0.4 %; Eosinophils # (auto) 0.02 K/uL (0-0.50); Eosinophils % (auto) 0.4 %; Hemoglobin 8.6 g/dl (12.0-16.0); Immature Granulocytes # (auto) 0.03 K/uL (0.01-0.20); Immature Granulocytes % (auto) 0.5 %; Lymphocytes # (auto) 1.53 K/uL (1.2-3.4); Mean Corpuscular Hemoglobin 23.2 pg (25.0-34.0); Mean Corpuscular Hgb Conc 33.1 g/dL (32.0-36.0); Mean Corpuscular Volume 70.1 fL (80.0-100.0); Mean Platelet Volume 9.6 fL (9.4-12.4); Monocytes # (auto) 0.85 K/uL (0.11-0.59); Neutrophils # (auto) 3.21 K/uL (1.40-6.50); Neutrophils % (auto) 56.7 %; Platelet Count 413 K/uL (130-400); RDW Coefficient of Variation 16.9 % (11.5-14.5); RDW Standard Deviation 42.4 fL (36.4-46.3); Red Blood Count 3.71 M/uL (4.20-5.40); White Blood Count 5.66 K/ul (4.8-10.8)
[2022-12-21] MEDS ORDERED: PANTOprazole 40 MG TAB PO SCH (06:30)
[2022-12-21 06:49] LABS: BUN Creatinine Ratio 27.3 (10-20); Calcium 8.7 mg/dl (8.6-10.3); Chol HDL Ratio 2.3 (0-5); Est GFR (African American) 118.9 ml/min; Est GFR (Non-African American) 102.6 ml/min; Potassium 3.5 mmol/L (3.5-5.1)
[2022-12-21] MEDS ORDERED: LABETALOL HCL IV 5 MG/ML 20ML IV PRN (07:07)
--- NOTE | 2022-12-21 07:09 | Communication Note ---
Date of Service: December 21, 2022 Changed iv hydralazine prn to iv labeteolol prn. Thanks
[2022-12-21 07:12] LABS: Vitamin B12 408 pg/ml (180-914)
[2022-12-21] MEDS ORDERED: ASPIRIN 81 MG ECTAB PO SCH (09:00)
[2022-12-21] MEDS: ROSUVASTATIN CALCIUM 20 MG TAB PO SCH (09:13)
[2022-12-21] MEDS: CHOLECALCIFEROL 400 UNITS 10 MCG TAB PO SCH (09:13)
[2022-12-21] MEDS: ASCORBIC ACID 500 MG TAB PO SCH (09:13)
[2022-12-21] MEDS: MULTIVITAMIN TAB PO SCH (09:13)
[2022-12-21] MEDS: carvediloL 6.25 MG TAB PO SCH ×2 (09:13→19:50)
[2022-12-21] MEDS: TRAVOPROST Z 0.004% OPH SOLN 2.5 ML BTL OPB SCH (09:14)
[2022-12-21 09:28] LABS: Estimated Average Glucose 105 mg/dl; Hemoglobin A1C 5.3 % (4.5-5.6)
[2022-12-21] MEDS ORDERED: OPTIRAY 320 500ml IV ONE ×2 (10:07→20:30)
--- NOTE | 2022-12-21 10:21 | CT Scan Report ---
CT angio head w con, CT head/brain wo con CLINICAL HISTORY: 82 years-old Female with neuro deficit, acute stroke suspected. Acute strokelike symptoms COMPARISON STUDY: Brain MRI of same day, CTA head and neck 12/20/2022 TECHNIQUE: Unenhanced axial CT scan of the brain is performed. Subsequently, following the IV adminis tration of cc of Optiray, CT angiogram of the brain was performed from the skull base to the vertex. Images are reviewed in the axial, sagittal, and coronal planes. 3-D MIPS images are created and asses sed. IV contrast was administered without complication. All measurements were obtained according to N ASCET criteria. A dose lowering technique was utilized adhering to the principles of ALARA. CT DOSE: 936.84 mGy.cm FINDINGS: CT BRAIN: There is no acute intracranial hemorrhage, midline shift, hydrocephalus, intracranial mass, territori al ischemia or abnormal extra-axial collections. No abnormal intra-axial or extra-axial enhancement. Involutional changes with chronic microvascular ischemic disease redemonstrated. The subtle acute in farcts in the right cerebral hemisphere described on the same-day brain MRI are not identified by CT. Mastoid air cells and middle ear cavities are clear. Prior bilateral lens repair. No calvarial fractu re. Paranasal sinuses are clear. CT ANGIOGRAM OF THE BRAIN: There is improved flow within the imaged distal right ICA compared to yesterday's study. The right in ternal carotid artery however is mildly diminutive compared to the left. Mild multifocal luminal narr owing of the middle cerebral arteries. The anterior cerebral arteries are widely patent. The imaged d istal vertebral arteries are patent. The basilar and posterior cerebral arteries are patent. or igin of the right posterior cerebral artery. The cerebral venous sinuses are patent. There is no abno rmal intracranial enhancement. IMPRESSION: 1. The subtle acute infarcts of the right cerebral hemisphere described on the brain MRI of same day are not visualized by CT. No acute territorial infarct identified. 2. No acute intracranial hemorrhage or midline shift. 3. Involutional changes with chronic microvascular ischemic disease. 4. There is increased flow within the imaged distal right internal carotid artery compared to the 11/23 study. ACT 112: Negative or not required by law. The above report was generated using voice recognition software. It may contain grammatical, syntax o r spelling errors. Electronically signed by: Jean Rosenbaum M.D. 12/21/2022 10:20 AM
--- NOTE | 2022-12-21 10:52 | CT Scan Report ---
CT angio neck with con CLINICAL HISTORY: neuro deficit, acute stroke suspected TECHNIQUE: CT angiography of the neck was performed following intravenous administration of iodinate d contrast. Coronal and sagittal MIPS were obtained from the axial data set and were submitted for re view. Automated dose lowering techniques and/or adjustment according to patient size were utilized f or this examination. All measurements were calculated based on NASCET criteria. Comparison: Comparison is made to CTA neck 12/20/2022 FINDINGS: Biapical scarring is seen. CTA Neck: A 3 vessel aortic arch is shown. There is hemodynamically significant stenosis of the righ t internal carotid artery at the bifurcation, distal opacification is seen which is The common caroti d, external carotid, cervical segments of the internal carotid arteries, and the cervical segments of the vertebral arteries are patent without hemodynamically significant stenosis. The left vertebral a rtery is dominant. IMPRESSION: There is near occlusion of the right internal carotid artery increased patency and distal reconstitut ion compared to the prior exam. Otherwise no acute abnormality is seen and no high-grade stenosis is seen. Assessment of stenosis of the internal carotid arteries is based on NASCET criteria. ACT 112: Negative or not required by law. Electronically signed by: [place] M.D. 12/21/2022 10:51 AM
--- NOTE | 2022-12-21 11:28 | Hospitalist Progress Note ---
Date of Service December 21, 2022 Assessment & Plan (1) Acute CVA (cerebrovascular accident): Plan: This is an 82-year-old female who presents with acute stroke. 1. Acute cerebrovascular accident with weakness in the left upper extremity in the hand and forearm. Symptoms initially improved. Imaging studies in ED showing occlusion of the right carotid artery from the cervical region through the petrous portion and reconstitution of the cavernous segment of the right internal carotid artery. The supraclinoid portion is patent, possibly from collateral flow. The M1 segment and distal middle cerebral branches are patent, although slightly diminutive from the previous exam. No thrombus were identified. [facility] neurologist thought that no intervention is needed at this time and was loaded with aspirin and statin, and also given magnesium and fluids and to call back Lau[facility] if anything changes. Full stroke workup with MRI scan ordered. Continue with IV fluids. Permissive hypertension. Echocardiogram. Consult neurology in the a.m. PT, OT. Will keep n.p.o. until seen by speech. Echo - normal LV chamber size with moderate concentric LVH, sigmoid appearing septum. Normal LV systolic function, EF 55 to 60%. No segmental LV wall motion abnormalities are noted. Grade 1 diastolic dysfunction. The interatrial septum is intact with no evidence for an ASD. Injection of contrast documented no interatrial shunt. Aortic valve sclerosis moderate, without significant aortic valvular stenosis. Brain MRI IMPRESSION: Punctate infarct in the right parietal lobe. No intraparenchymal hemorrhage is seen. 12/21 during PT session today, pt became more weak (in left UE), had more slurred speech/ word finding difficulty and was not following commands as before Stroke alert was called [facility] was called and discussed the case with - CT head w/o con, CTA head and neck obtained, brain MRI limited sequence also requested and obtained Initial evaluation, left upper extremity weakness/flaccid, able to answer yes and no questions, however not able to speak in full sentences. Reportedly during imaging studies patient very restless, when discussed this with [facility], they worry about possible seizure, and EEG also recommended After coming back from MRI, patient more alert, and her function much improved. Able to move her left upper extremity, able to move lower extremities somewhat as well. Able to answer questions much more coherently. Even though still continues to have some word finding difficulty and somewhat slurred speech. Given this episode, patient will for now stay in ICU for further monitoring. Per [facility] -recommend to lay flat, and recommend permissive hypertension, up to blood pressure of 200/110. Obtain EEG. Loaded with Plavix and continue Plavix daily with aspirin and statin. Consult vascular surgery for possible endarterectomy, for internal carotid occlusion. The above episode, and my conversation with [facility] was also discussed with inpatient neurologist, Dr. Ambriz, appreciate his input. 2. Hypertension: Would allow permissive hypertension, as above. Continue her Coreg. Will hold the lisinopril and place on hydralazine p.r.n. 3. History of gastric ulcer in the past, history of and AVMs and Damian's. She was on iron supplements in the past. Her EGD done in November 2021 was unremarkable.O admission, her hemoglobin is 8.9. Will follow the stool Hemoccult, vitamin B12, folate levels, and iron studies. Once stable, will consult GI. Continue omeprazole for now. 4. Alcoholism: Drinks 2-3 glasses of red wine daily. Denies any withdrawal symptoms. Will give a dose of thiamine and folic acid. Continue her home multivitamins. Monitor for any withdrawal symptoms. 5. Tobacco abuse. 6. History of thoracic aortic aneurysm: Will follow the echo report. 7. History of left breast cancer in 2010: Status post partial left breast lumpectomy. 8. Hx of Post Polio syndrome. PT/OT DVT prophylaxis: SCDs. DISPOSITION:closely monitor, telemetry/ICU. PT/OT prior to discharge Code: Full Admission and Anticipated Discharge Date Admission Date: December 21, 2022 Subjective Pt seen in follow up of CVA Today during PT session pt became more weak (in left UE), had more slurred speech/ word finding difficulty and was not following commands as before Stroke alert was called [facility] was called and discussed the case with - CT head w/o con, CTA head and neck obtained, brain MRI limited sequence also requested Patient lying in bed, in no acute distress Initial evaluation, left upper extremity weakness/flaccid, able to answer yes and no questions, however not able to speak in full sentences. Reportedly during imaging studies patient very restless, when discussed this with [facility], they worry about possible seizure, and EEG also recommended After coming back from MRI, patient more alert, and her function much improved. Able to move her left upper extremity, able to move lower extremities somewhat as well. Able to answer questions much more coherently. Even though still continues to have some word finding difficulty and somewhat slurred speech. Given this episode, patient will for now stay in ICU for further monitoring. Inpatient neurology also consulted, awaiting their evaluation. Review of Systems Review of Systems: All systems reviewed & are unremarkable except as noted in Subjective Physical Exam Physical Exam: GENERAL: The patient is alert and awake, not in acute distress. HEENT: NC/AT. Pupils equal, round, and reactive to light. Extraocular muscles intact. NECK: No JVD, no neck masses. CARDIOVASCULAR: S1 and S2 heard. Regular rate and rhythm. No murmur, no gallop. RESPIRATORY:: Normal AP diameter. No accessory muscle use. No wheezing, no crackles. ABDOMEN: Soft, bowel sounds present, nontender, no distention. NEURO:Awake and alert, able to answer some simple questions. Still has some word finding difficulty, and somewhat slurred speech. Left upper extremity weakness earlier today, on repeat exam resolved and patient is moving left upper extremity. Earlier today, not able to move her lower extremities, not following commands. Now she is more cooperative, following commands, and able to move lower extremities much better. Results & Data Results & Data Vital Signs (Past 12 Hours) Vital Signs Temp Pulse Pulse Resp BP BP BP 12/21/22 10:00 36.6 C 65 18 169/68 H 12/21/22 09:36 36.5 C 59 L 20 171/71 H 12/21/22 07:49 77 12/21/22 01:48 12/21/22 01:48 37 C 68 16 197/83 H 12/21/22 04:10 36.5 C 64 16 180/79 H 12/21/22 01:19 70 18 178/74 H 12/21/22 01:00 70 18 178/74 H 12/20/22 23:30 72 17 180/78 H Pulse Ox O2 Del Method 12/21/22 10:00 99 Room Air 12/21/22 09:36 99 Room Air 12/21/22 07:49 12/21/22 01:48 Room Air 12/21/22 01:48 99 Room Air 12/21/22 04:10 98 Room Air 12/21/22 01:19 98 Room Air 12/21/22 01:00 98 Room Air 12/20/22 23:30 98 Room Air Laboratory Results 12/21/22 12/21/22 12/21/22 Range/Units 05:30 05:30 05:30 WBC (4.8-10.8) K/ul RBC (4.20-5.40) M/uL Hgb (12.0-16.0) g/dl POC Hgb (12.0-16.0) g/dl Hct (37.0-47.0) % POC Hct (37-47) % MCV (80.0-100.0) fL MCH (25.0-34.0) pg MCHC (32.0-36.0) g/dL RDW Std Deviation (36.4-46.3) fL RDW Coeff of Kaye (11.5-14.5) % Plt Count (130-400) K/uL MPV (9.4-12.4) fL Immature Gran % (Auto) % Neut % (Auto) % Lymph % (Auto) % Evangeline % (Auto) % Eos % (Auto) % Baso % (Auto) % Neut # (Auto) (1.40-6.50) K/uL Lymph # (Auto) (1.2-3.4) K/uL Evangeline # (Auto) (0.11-0.59) K/uL Eos # (Auto) (0-0.50) K/uL Baso # (Auto) (0-0.2) K/uL Immature Gran # (Auto) (0.01-0.20) K/uL PT (9.0-12.0) Seconds INR (0.9-1.1) APTT (21.0-31.0) Seconds PTT Ratio POC Sodium (135-144) mmol/L Sodium (136-145) mmol/L POC Potassium (3.3-5.0) mmol/L Potassium (3.5-5.1) mmol/L POC Chloride (101-112) mmol/L Chloride (98-107) mmol/L Carbon Dioxide (21-32) mmol/L POC Total CO2 (24-31) mmol/L Anion Gap (3-11) POC Anion Gap (16-25) mmol/L POC BUN (7-18) mg/dl BUN (6-23) mg/dl Creatinine (0.6-1.2) mg/dl POC Creatinine (0.6-1.3) mg/dl Est Cr Clr Drug Dosing ml/min Est GFR ( Amer) ml/min Est GFR (Non-Af Amer) ml/min BUN/Creatinine Ratio (10-20) Glucose (70-99(Fasting)) mg/dl POC Glucose (other) (70-99) mg/dl Estimat Average Glucose 105 mg/dl Hemoglobin A1c 5.3 (4.5-5.6) % Osmolality 278 L (280-300) mOsm/kg Calcium (8.6-10.3) mg/dl POC Ioniz Calcium Hu (1.12-1.32) mmol/l Magnesium (1.7-2.4) mg/dl Iron (35-150) mcg/dl TIBC (250-450) mcg/dl Unsaturated IBC (155-355) mcg/dl Transferrin % Sat (15-50) % Total Bilirubin (0.2-1.0) mg/dl AST (13-39) U/L ALT (7-52) U/L Alkaline Phosphatase (34-104) U/L Troponin I High Sens (0-14) pg/ml Total Protein (6.0-8.3) gm/dl Albumin (3.4-5.0) gm/dl Globulin (2.5-4.0) gm/dl Albumin/Globulin Ratio (0.9-2) Triglycerides (0-150) mg/dl Cholesterol (0-200) mg/dl LDL Cholesterol, Calc mg/dl VLDL Cholesterol, Calc (0-30) mg/dl HDL Cholesterol mg/dl Cholesterol/HDL Ratio (0-5) Vitamin B12 408 (180-914) pg/ml Folate > 22.30 (>5.38) ng/ml SARS-CoV-2, RNA, NAAT (NEGATIVE) Blood Type Antibody Screen 12/21/22 12/21/22 12/20/22 Range/Units 05:30 05:30 22:08 WBC 5.66 (4.8-10.8) K/ul RBC 3.71 L (4.20-5.40) M/uL Hgb 8.6 L (12.0-16.0) g/dl POC Hgb (12.0-16.0) g/dl Hct 26.0 L (37.0-47.0) % POC Hct (37-47) % MCV 70.1 L (80.0-100.0) fL MCH 23.2 L (25.0-34.0) pg MCHC 33.1 (32.0-36.0) g/dL RDW Std Deviation 42.4 (36.4-46.3) fL RDW Coeff of Kaye 16.9 H (11.5-14.5) % Plt Count 413 H (130-400) K/uL MPV 9.6 (9.4-12.4) fL Immature Gran % (Auto) 0.5 % Neut % (Auto) 56.7 % Lymph % (Auto) 27.0 % Evangeline % (Auto) 15.0 % Eos % (Auto) 0.4 % Baso % (Auto) 0.4 % Neut # (Auto) 3.21 (1.40-6.50) K/uL Lymph # (Auto) 1.53 (1.2-3.4) K/uL Evangeline # (Auto) 0.85 H (0.11-0.59) K/uL Eos # (Auto) 0.02 (0-0.50) K/uL Baso # (Auto) 0.02 (0-0.2) K/uL Immature Gran # (Auto) 0.03 (0.01-0.20) K/uL PT (9.0-12.0) Seconds INR (0.9-1.1) APTT (21.0-31.0) Seconds PTT Ratio POC Sodium (135-144) mmol/L Sodium 133 L (136-145) mmol/L POC Potassium (3.3-5.0) mmol/L Potassium 3.5 (3.5-5.1) mmol/L POC Chloride (101-112) mmol/L Chloride 101 (98-107) mmol/L Carbon Dioxide 26 (21-32) mmol/L POC Total CO2 (24-31) mmol/L Anion Gap 6 (3-11) POC Anion Gap (16-25) mmol/L POC BUN (7-18) mg/dl BUN 9 (6-23) mg/dl Creatinine 0.33 L (0.6-1.2) mg/dl POC Creatinine (0.6-1.3) mg/dl Est Cr Clr Drug Dosing 111.0 ml/min Est GFR ( Amer) 118.9 ml/min Est GFR (Non-Af Amer) 102.6 ml/min BUN/Creatinine Ratio 27.3 H (10-20) Glucose 104 H (70-99(Fasting)) mg/dl POC Glucose (other) (70-99) mg/dl Estimat Average Glucose mg/dl Hemoglobin A1c (4.5-5.6) % Osmolality (280-300) mOsm/kg Calcium 8.7 (8.6-10.3) mg/dl POC Ioniz Calcium Hu (1.12-1.32) mmol/l Magnesium (1.7-2.4) mg/dl Iron 11 L (35-150) mcg/dl TIBC 376 (250-450) mcg/dl Unsaturated IBC 365 H (155-355) mcg/dl Transferrin % Sat 3 L (15-50) % Total Bilirubin (0.2-1.0) mg/dl AST (13-39) U/L ALT (7-52) U/L Alkaline Phosphatase (34-104) U/L Troponin I High Sens (0-14) pg/ml Total Protein (6.0-8.3) gm/dl Albumin (3.4-5.0) gm/dl Globulin (2.5-4.0) gm/dl Albumin/Globulin Ratio (0.9-2) Triglycerides 53 (0-150) mg/dl Cholesterol 160 (0-200) mg/dl LDL Cholesterol, Calc 78 mg/dl VLDL Cholesterol, Calc 11 (0-30) mg/dl HDL Cholesterol 71 mg/dl Cholesterol/HDL Ratio 2.3 (0-5) Vitamin B12 (180-914) pg/ml Folate (>5.38) ng/ml SARS-CoV-2, RNA, NAAT NEGATIVE (NEGATIVE) Blood Type Antibody Screen 12/20/22 12/20/22 12/20/22 Range/Units 21:48 21:44 21:44 WBC (4.8-10.8) K/ul RBC (4.20-5.40) M/uL Hgb (12.0-16.0) g/dl POC Hgb 10.5 L (12.0-16.0) g/dl Hct (37.0-47.0) % POC Hct 31 L (37-47) % MCV (80.0-100.0) fL MCH (25.0-34.0) pg MCHC (32.0-36.0) g/dL RDW Std Deviation (36.4-46.3) fL RDW Coeff of Kaye (11.5-14.5) % Plt Count (130-400) K/uL MPV (9.4-12.4) fL Immature Gran % (Auto) % Neut % (Auto) % Lymph % (Auto) % Evangeline % (Auto) % Eos % (Auto) % Baso % (Auto) % Neut # (Auto) (1.40-6.50) K/uL Lymph # (Auto) (1.2-3.4) K/uL Evangeline # (Auto) (0.11-0.59) K/uL Eos # (Auto) (0-0.50) K/uL Baso # (Auto) (0-0.2) K/uL Immature Gran # (Auto) (0.01-0.20) K/uL PT 11.3 (9.0-12.0) Seconds INR 1.1 (0.9-1.1) APTT 26.5 (21.0-31.0) Seconds PTT Ratio 1.0 POC Sodium 129 L (135-144) mmol/L Sodium 127 L (136-145) mmol/L POC Potassium 3.6 (3.3-5.0) mmol/L Potassium 3.5 (3.5-5.1) mmol/L POC Chloride 93 L (101-112) mmol/L Chloride 97 L (98-107) mmol/L Carbon Dioxide 23 (21-32) mmol/L POC Total CO2 22 L (24-31) mmol/L Anion Gap 7 (3-11) POC Anion Gap 19.0 (16-25) mmol/L POC BUN 12 (7-18) mg/dl BUN 13 (6-23) mg/dl Creatinine 0.43 L (0.6-1.2) mg/dl POC Creatinine 0.3 L (0.6-1.3) mg/dl Est Cr Clr Drug Dosing 85.2 ml/min Est GFR ( Amer) 109.0 ml/min Est GFR (Non-Af Amer) 94.1 ml/min BUN/Creatinine Ratio 30.2 H (10-20) Glucose 199 H (70-99(Fasting)) mg/dl POC Glucose (other) 193 H (70-99) mg/dl Estimat Average Glucose mg/dl Hemoglobin A1c (4.5-5.6) % Osmolality (280-300) mOsm/kg Calcium 8.9 (8.6-10.3) mg/dl POC Ioniz Calcium Hu 1.17 (1.12-1.32) mmol/l Magnesium 1.6 L (1.7-2.4) mg/dl Iron (35-150) mcg/dl TIBC (250-450) mcg/dl Unsaturated IBC (155-355) mcg/dl Transferrin % Sat (15-50) % Total Bilirubin 0.3 (0.2-1.0) mg/dl AST 15 (13-39) U/L ALT 8 (7-52) U/L Alkaline Phosphatase 87 (34-104) U/L Troponin I High Sens 10.7 (0-14) pg/ml Total Protein 6.7 (6.0-8.3) gm/dl Albumin 3.8 (3.4-5.0) gm/dl Globulin 2.9 (2.5-4.0) gm/dl Albumin/Globulin Ratio 1.3 (0.9-2) Triglycerides (0-150) mg/dl Cholesterol (0-200) mg/dl LDL Cholesterol, Calc mg/dl VLDL Cholesterol, Calc (0-30) mg/dl HDL Cholesterol mg/dl Cholesterol/HDL Ratio (0-5) Vitamin B12 (180-914) pg/ml Folate (>5.38) ng/ml SARS-CoV-2, RNA, NAAT (NEGATIVE) Blood Type Antibody Screen 12/20/22 12/20/22 Range/Units 21:44 21:44 WBC 3.78 L (4.8-10.8) K/ul RBC 3.83 L (4.20-5.40) M/uL Hgb 8.9 L (12.0-16.0) g/dl POC Hgb (12.0-16.0) g/dl Hct 27.1 L (37.0-47.0) % POC Hct (37-47) % MCV 70.8 L (80.0-100.0) fL MCH 23.2 L (25.0-34.0) pg MCHC 32.8 (32.0-36.0) g/dL RDW Std Deviation 42.7 (36.4-46.3) fL RDW Coeff of Kaye 16.9 H (11.5-14.5) % Plt Count 425 H (130-400) K/uL MPV 9.8 (9.4-12.4) fL Immature Gran % (Auto) 0.3 % Neut % (Auto) 68.7 % Lymph % (Auto) 21.7 % Evangeline % (Auto) 8.5 % Eos % (Auto) 0.0 % Baso % (Auto) 0.8 % Neut # (Auto) 2.60 (1.40-6.50) K/uL Lymph # (Auto) 0.82 L (1.2-3.4) K/uL Evangeline # (Auto) 0.32 (0.11-0.59) K/uL Eos # (Auto) 0.00 (0-0.50) K/uL Baso # (Auto) 0.03 (0-0.2) K/uL Immature Gran # (Auto) 0.01 (0.01-0.20) K/uL PT (9.0-12.0) Seconds INR (0.9-1.1) APTT (21.0-31.0) Seconds PTT Ratio POC Sodium (135-144) mmol/L Sodium (136-145) mmol/L POC Potassium (3.3-5.0) mmol/L Potassium (3.5-5.1) mmol/L POC Chloride (101-112) mmol/L Chloride (98-107) mmol/L Carbon Dioxide (21-32) mmol/L POC Total CO2 (24-31) mmol/L Anion Gap (3-11) POC Anion Gap (16-25) mmol/L POC BUN (7-18) mg/dl BUN (6-23) mg/dl Creatinine (0.6-1.2) mg/dl POC Creatinine (0.6-1.3) mg/dl Est Cr Clr Drug Dosing ml/min Est GFR ( Amer) ml/min Est GFR (Non-Af Amer) ml/min BUN/Creatinine Ratio (10-20) Glucose (70-99(Fasting)) mg/dl POC Glucose (other) (70-99) mg/dl Estimat Average Glucose mg/dl Hemoglobin A1c (4.5-5.6) % Osmolality (280-300) mOsm/kg Calcium (8.6-10.3) mg/dl POC Ioniz Calcium Hu (1.12-1.32) mmol/l Magnesium (1.7-2.4) mg/dl Iron (35-150) mcg/dl TIBC (250-450) mcg/dl Unsaturated IBC (155-355) mcg/dl Transferrin % Sat (15-50) % Total Bilirubin (0.2-1.0) mg/dl AST (13-39) U/L ALT (7-52) U/L Alkaline Phosphatase (34-104) U/L Troponin I High Sens (0-14) pg/ml Total Protein (6.0-8.3) gm/dl Albumin (3.4-5.0) gm/dl Globulin (2.5-4.0) gm/dl Albumin/Globulin Ratio (0.9-2) Triglycerides (0-150) mg/dl Cholesterol (0-200) mg/dl LDL Cholesterol, Calc mg/dl VLDL Cholesterol, Calc (0-30) mg/dl HDL Cholesterol mg/dl Cholesterol/HDL Ratio (0-5) Vitamin B12 (180-914) pg/ml Folate (>5.38) ng/ml SARS-CoV-2, RNA, NAAT (NEGATIVE) Blood Type A Positive Antibody Screen NEGATIVE Medications Administered Current Inpatient Medications Acetaminophen (Acetaminophen 325 Mg Tab) 650 mg PO Q4H PRN PRN Reason: Pain or Fever Stop: 01/20/23 01:47 Ascorbic Acid (Ascorbic Acid 500 Mg Tab) 500 mg PO DAILY [facility] Stop: 01/20/23 08:59 Last Admin: 12/21/22 09:13 Dose: 500 mg Aspirin (Aspirin 81 Mg Ectab) 81 mg PO DAILY [facility] Stop: 01/20/23 08:59 Last Admin: 12/21/22 09:13 Dose: 81 mg Carvedilol (Carvedilol 6.25 Mg Tab) 6.25 mg PO BID [facility] Stop: 01/20/23 08:59 Last Admin: 12/21/22 09:13 Dose: 6.25 mg Sodium Chloride (Nss 1000ml) 1,000 mls @ 80 mls/hr IV .[id number] [facility] Stop: 01/20/23 01:47 Last Infusion: 12/21/22 09:55 Dose: 0 mls/hr Labetalol HCl (Labetalol Hcl Iv 5 Mg/Ml 20ml) 10 mg IV Q6H PRN PRN Reason: Hypertension Stop: 01/20/23 07:06 Miscellaneous Information (Pharmacist Discharge Med Rec Consult) 1 each N/A UD PRN PRN Reason: Consult Stop: 01/20/23 01:47 Multivitamins (Multivitamin Tab) 1 tab PO DAILY [facility] Stop: 01/20/23 08:59 Last Admin: 12/21/22 09:13 Dose: 1 tab Nitroglycerin (Nitroglycerin Sl 0.4 Mg/Tab Tab) 0.4 mg SL UD PRN PRN Reason: Chest Pain Stop: 01/20/23 01:47 Pantoprazole Sodium (Pantoprazole 40 Mg Tab) 40 mg PO DAILYBB [facility] Stop: 01/20/23 06:29 Last Admin: 12/21/22 05:49 Dose: 40 mg Polyethylene Glycol (Polyethylene (Miralax) 17 Gm Pack) 17 gm PO DAILY PRN PRN Reason: Constipation Stop: 01/20/23 01:47 Rosuvastatin Calcium (Rosuvastatin Calcium 20 Mg Tab) 20 mg PO QAM [facility] Stop: 01/20/23 08:59 Last Admin: 12/21/22 09:13 Dose: 20 mg Travoprost (Travoprost Z 0.004% Oph Soln 2.5 Ml Btl) 1 drops OPB DAILY [facility] Stop: 01/20/23 08:59 Last Admin: 12/21/22 09:14 Dose: 1 drops Vitamin D (Cholecalciferol 400 Units 10 Mcg Tab) 400 units PO DAILY [facility] Stop: 01/20/23 08:59 Last Admin: 12/21/22 09:13 Dose: 400 units
--- NOTE | 2022-12-21 11:48 | Magnetic Resonance Report ---
MR brain wo con CLINICAL HISTORY: cva TECHNIQUE: Multiplanar and multisequence MR images of the brain were obtained without intravenous con trast. Comparison: Comparison is made to CTA head and neck 12/21/2022 FINDINGS: Exam is highly limited by patient motion. There is a punctate focus of restricted diffusion in the ri ght parietal lobe measuring 5 mm. Foci of T2 and FLAIR hyperintensity are noted in the paraventricula r areas consistent with chronic small vessel ischemic disease. Ex vacuo ventriculomegaly and sulcal e nlargement is noted compatible with diffuse encephalomalacia. No mass is seen. There is no mass effec t or midline shift. There is no evidence of acute intraparenchymal hemorrhage. No extra axial fluid c ollections are seen. The corpus callosum, pituitary gland, and cerebellar tonsils appear grossly unre markable. Flow voids of the major intracranial arterial vessels are identified. The imaged portions of the para nasal sinuses, mastoid air cells, and orbits are unremarkable. IMPRESSION: Punctate infarct in the right parietal lobe. No intraparenchymal hemorrhage is seen. ACT 112: Negative or not required by law. Electronically signed by: [place] M.D. 12/21/2022 11:46 AM
--- NOTE | 2022-12-21 12:02 | Consultation Report ---
NEPHROLOGY CONSULTATION NOTE REASON FOR CONSULTATION: Hyponatremia. HISTORY OF PRESENT ILLNESS: The patient is an 82-year-old female who presented earlier today with ac elda stroke-like symptom. Sodium was found to be slightly low at 129. She was put on some normal misael ine which then raised her sodium to 133. She has significant weakness in the left upper extremity as well as lower extremity. Imaging study shows occlusion of the right carotid artery. She is current ly being managed as a stroke alert patient. She just had CT of the head as well as MRI and angiogram requiring contrast. Kidney function is normal with a BUN of 9 and a creatinine of 0.3, potassium is 3.5. Urine test has been ordered, but has not been done yet. I do not have any prior sodium to com pare with at this point. The patient is unable to give any history at this point. Review of systems could not be obtained. ALLERGIES: Reviewed. PAST MEDICAL AND SURGICAL HISTORY: Include hypertension, thoracic aortic aneurysm, benign neoplasm o f colon, generalized osteoarthritis, history of iron deficiency anemia, history of monoclonal gammopa thy of unknown significance, history of tobacco use, history of postpolio syndrome, history of breast cancer, history of gastric ulcer, colonoscopy, EGD, left ankle fusion surgery, left breast lumpectom y, cataract surgery, tonsillectomy and adenoidectomy. MEDICATIONS: At home was reviewed in detail and is as per the H and P and the reconciliation list. FAMILY HISTORY: Negative for renal disease or dialysis. SOCIAL HISTORY: . Smoked half pack a day for 20 years. She drinks 2-3 glasses of red wine e very day. No drug use. REVIEW OF SYSTEMS: Unable to obtain given the patient's current cognitive status. PHYSICAL EXAMINATION: GENERAL: Elderly white female who appears to be chronically ill. She is not able to give any meanin gful history; however, she is talking. VITAL SIGNS: Blood pressure is 156/72, pulse rate 93, temperature 36.6, 100% on room air. HEENT: Mucous membrane appears dry. NECK: Supple. No jugular venous distention. CHEST: Bilateral decreased breath sounds, poor inspiratory effort. CARDIOVASCULAR: S1 and S2, regular. ABDOMEN: Soft, nontender. EXTREMITIES: Show no edema. LABORATORY TESTS: Hemoglobin 8.6. Sodium was 129, then improved to 133, potassium 3.5, BUN 9, creat inine 0.3. Iron is low at 11. Iron saturation 3%. ASSESSMENT AND PLAN: An 82-year-old female who was admitted because of acute stroke with significant symptoms as well as imaging findings. I have been consulted for hyponatremia. Hyponatremia. Her sodium on admission was 129, which has since then improved to 133 with the use of normal saline. Her BUN and creatinine is very low, signifying a very low protein intake as well as l ow muscle mass. Sodium is at a safe level and does not need frequent check at this point. Once daily BMP is enough. On exam. she appears to be somewhat hypovolemic and I would continue with the normal saline for the time being. She also has significant iron deficiency anemia. I will continue to fol low the patient. Please do BMP twice daily at this point. Urine osmolality and urine sodium has bee n ordered, but it is not collected yet. Further management and advice will be after the results of t he urine osmolality. Thank you very much for the consult. Job ID: [id number]
[2022-12-21] MEDS ORDERED: CLOPIDOGREL BISULFATE 300 MG TAB PO STA (12:19)
--- NOTE | 2022-12-21 12:56 | Critical Care Consultation ---
Date of Consultation December 21, 2022 Assessment & Plan (1) Stroke-like symptom: (2) Dysmetria: (3) Word finding difficulty: (4) Hyponatremia: Plan Monitoring in the ICU given ongoing strokelike symptoms. Allow for permissive hypertension. EEG to evaluate for seizure. Continue dual antiplatelet therapy. Neurology consult ordered. Brain imaging without evidence of significant stroke. Neck CTA with evidence of carotid artery stenosis. Vascular surgery consult placed by hospitalist service. Normal saline for hyponatremia. Follow BMPs every 12. Appreciate nephrology input. PT/OT and speech therapy consults. Echo with evidence of a normal LVEF of 55 to 60%. Grade 1 diastolic dysfunction. No intra-arterial shunt seen. Moderate aortic valve sclerosis. Discussed with hospitalist and bedside RN. ICU team will continue to monitor while the patient remains under ICU status. History of Present Illness Reason for Consultation: Waxing and waning neurological symptoms Attending Physician: Jared Grijalva MD History of Present Illness 82-year-old female with a history of hypertension, thoracic aortic aneurysm, chronic hyponatremia, postpolio syndrome, breast cancer and gastric esophageal reflux disease who presented to the hospital overnight due to strokelike symptoms. Patient noticed left hand and arm weakness around 4 PM yesterday. She notes chronic weakness in her lower extremities bilaterally. She also noted some trouble with slurred speech and word finding difficulty. This morning stroke alert was called twice due to concerns of evolving strokelike symptoms. Extensive imaging of the head and neck were performed. Her latest brain MRI from 11:46 AM revealed a punctate infarct in the right parietal lobe and no intraparenchymal hemorrhage. These findings are largely unchanged compared to the findings on MRI brain from overnight. 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 No acute abnormality was noted. She was also found to have hyponatremia on admission which is slowly improving with normal saline. Telestroke neurology team per the hospitalist recommended an EEG and transfer to ICU. She is currently on aspirin and Plavix. Allergies Allergy/AdvReac Type Severity Reaction Status Date / Time capsaicin [Diclopak] Allergy Unknown swelled, Unverified 12/20/22 21:41 itchy diclofenac [Diclopak] Allergy Unknown swelled, Unverified 12/20/22 21:41 itchy exemestane AdvReac Severe severe Unverified 12/20/22 21:41 diarrhea tamoxifen AdvReac Severe severe abd Unverified 12/20/22 21:41 pain Home Medications Medication Instructions Recorded Confirmed Type ascorbic acid (vitamin C) 500 mg 500 mg PO DAILY 12/20/22 12/20/22 History tablet (Vitamin C) carvedilol 3.125 mg tablet 6.25 mg PO BID 12/20/22 12/20/22 History cholecalciferol (vitamin D3) 10 10 mcg PO DAILY 12/20/22 12/20/22 History mcg (400 unit) tablet (Vitamin D3) lisinopril 20 mg tablet 20 mg PO AMHS 12/20/22 12/20/22 History multivitamin 1 tab PO DAILY 12/20/22 12/20/22 History omega 2-pue-izu-fish oil 1,000 mg 1 cap PO DAILY 12/20/22 12/20/22 History (120 mg-180 mg) capsule (Fish Oil) omeprazole 20 mg tablet,delayed 20 mg PO DAILYBB 12/20/22 12/20/22 History release travoprost 0.004 % eye drops 1 drp OPB DAILY 12/20/22 12/20/22 History Patient History Medical History (Updated 12/21/22 @ 12:52 by Juan José Robbins MD) Dysmetria Hyponatremia Word finding difficulty Social History Smoking Status: Current every day smoker Cigarettes Per Day: 8; Do You Dip or Chew Tobacco: No; Hx Alcohol Use: Yes Alcohol type: wine Hx Substance Use: No Preferred Language: Wolof Communication Ability: Effective Braille Operator Required: No Beliefs That Will Affect Care: None Current Living Situation: Spouse and Family Other Information That Helps Us Care for You: No Feels Safe at Home: Yes Safety Concerns: Feels Safe At This Time Assistive Devices: Glasses, Hearing Aid - Bilateral, Scooter/Electric Scooter, Special Shoe, Walker and Wheelchair Review of Systems Review of Systems: Limited due to the patient's word finding difficulties. Physical Exam Physical Exam: Constitutional: Patient appears to be of their stated age. Patient is in no apparent distress. Patient is well-developed. Eyes: Pupils are equal round and reactive to light. Conjunctivae are normal. Anicteric sclera. Ears nose, mouth and throat: Mallampati class 2. Normal posterior oropharynx. Uvula is midline. Neck: Trachea is midline. Visual inspection is normal. Respiratory: Clear to auscultation bilaterally. No use of accessory muscles. No significant clubbing noted. Cardiovascular: Regular rate and rhythm. No murmurs. No edema. Gastrointestinal: Normal bowel sounds, soft, nontender and nondistended. No hepatosplenomegaly noted. Musculoskeletal: No cyanosis. Patient is able to move all extremities. Strength is 5 out of 5 in the upper and lower extremities. Skin: No rashes, warm dry and intact. Neurologic: Contracted left upper extremity with diminished range of motion. Sampler Radioactive Waste strength 4 out of 5 in the left. 5 out of 5 on the right. Weak lower extremities. Word-finding difficulties. Dysmetria. Psychiatric: Alert and oriented x1 with an anxious mood. Results & Data Results & Data Vital Signs (Past 12 Hours) Vital Signs Temp Pulse Pulse Resp BP BP BP 12/21/22 11:46 165/51 H 12/21/22 11:46 64 19 12/21/22 11:43 66 19 12/21/22 11:43 189/89 H 12/21/22 11:43 189/89 H 12/21/22 11:40 65 23 12/21/22 11:31 68 15 12/21/22 10:40 62 17 12/21/22 10:36 93 H 19 156/72 H 12/21/22 10:00 36.6 C 65 18 169/68 H 12/21/22 09:36 36.5 C 59 L 20 171/71 H 12/21/22 07:49 77 12/21/22 01:48 12/21/22 01:48 37 C 68 16 197/83 H 12/21/22 04:10 36.5 C 64 16 180/79 H 12/21/22 01:19 70 18 178/74 H 12/21/22 01:00 70 18 178/74 H Pulse Ox O2 Del Method 12/21/22 11:46 12/21/22 11:46 100 12/21/22 11:43 90 12/21/22 11:43 12/21/22 11:43 12/21/22 11:40 100 12/21/22 11:31 12/21/22 10:40 100 12/21/22 10:36 100 12/21/22 10:00 99 Room Air 12/21/22 09:36 99 Room Air 12/21/22 07:49 12/21/22 01:48 Room Air 12/21/22 01:48 99 Room Air 12/21/22 04:10 98 Room Air 12/21/22 01:19 98 Room Air 12/21/22 01:00 98 Room Air Coding Level of Care Code 28844 IN/OBS CONSULT LVL 4,60M Diagnoses Stroke-like symptom R29.90 Dysmetria R27.8 Word finding difficulty R47.89 Hyponatremia E87.1
[2022-12-21] MEDS: POTASSIUM CHLORIDE / WTR 10 MEQ/100 ML PLCT IV SCH ×3 (13:56→17:42)
--- NOTE | 2022-12-21 15:22 | Neurology Consultation ---
Date of Consultation December 21, 2022 Assessment & Plan (1) Acute CVA (cerebrovascular accident): Impression: Acute ischemic stroke, involving the right motor cortex. Underlying etiology is probably atherothrombotic event. Right internal carotid artery occlusion is likely contributory factor. Recommendations/plan: We will keep the patient on aspirin 81 mg and Plavix 75 mg daily. Continue on rosuvastatin 20 mg daily. Goal LDL level is lower than 70. No further need for permissive hypertension. We should avoid hypotension with carefully and gradually lowering blood pressure. Telemetry monitoring. The patient is neurologically stable and can be transferred to regular floor bed. Physical therapy and Occupational Therapy evaluations. Fall precautions. DVT prophylaxis. We will follow patient's with you. (2) Word finding difficulty: Impression: The patient has obvious word finding difficulty although she denies any new speech disturbance. She reports that this is kind of baseline for her. However, this can be secondary to acute cerebrovascular accident. (3) Hypertension: Impression: Permissive hypertension as indicated initially. Recommendations: No further indication for permissive hypertension. Because of significant vascular stenotic lesions of brain, we should avoid hypotension. Gradual and careful lowering blood pressure is recommended down to normal range. (4) Internal carotid artery occlusion: Impression: Initial CT angiography showed total occlusion of right internal carotid artery with reconstituted flow. However, repeat CT angiogram of neck reports some patency. The patient also has mild to moderate stenosis of left internal carotid artery. Recommendations/plan: Continue on double antiplatelet treatment and statin. Consultation with vascular surgery based on second CT angiography, which reportedly showed some patency. If there is any patency, then the patient will need carotid artery intervention, probably endarterectomy. Plan As seen above. Thank you for the consultation. History of Present Illness Reason for Consultation: CVA Requesting Physician: Jared Grijalva MD Attending Physician: Jared Grijalva MD History of Present Illness The patient is a 82-year-old right-handed female, who was brought to emergency department yesterday, when the patient noticed left upper extremity weakness, and questionable speech disturbance. 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 However, since yesterday 4 PM, she has noticed worsening weakness, difficulty grabbing objects with left hand, and coordination difficulty. Because of sudden change of her baseline weakness, she was brought to emergency department, and was assessed by telestroke neurologist. She was outside of intravenous thrombolytic treatment window. CT angiography showed a right internal carotid artery total occlusion and neuro interventionalist did not consider surgical intervention as an option. The patient was started on double antiplatelet treatment and statin and admitted to intensive care unit. Since admission, she has been stable, with s ome improvement of left upper extremity weakness. Apparently, she has some word finding difficulty, but she reports that this is kind of baseline for her. Brain MRI was done, which showed a right parietal and frontal subcortical and cortical acute ischemic stroke. Repeat CT angiography reported near total occlusion of right internal carotid artery which was an improvement since the initial CTA. Echocardiogram was unremarkable. Lipid panel was checked. Cardiac rhythm monitoring has been showing sinus rhythm with PVCs. The patient denies having stroke symptoms in the past. Permissive hypertension has been in effect. She denies any new neurological symptoms. I have reviewed the patient's chart including imaging studies and visualized them personally. I have discussed the case with the patient and answered her questions in detail. Allergies Allergy/AdvReac Type Severity Reaction Status Date / Time capsaicin [Diclopak] Allergy Unknown swelled, Unverified 12/20/22 21:41 itchy diclofenac [Diclopak] Allergy Unknown swelled, Unverified 12/20/22 21:41 itchy exemestane AdvReac Severe severe Unverified 12/20/22 21:41 diarrhea tamoxifen AdvReac Severe severe abd Unverified 12/20/22 21:41 pain Home Medications Medication Instructions Recorded Confirmed Type ascorbic acid (vitamin C) 500 mg 500 mg PO DAILY 12/20/22 12/20/22 History tablet (Vitamin C) carvedilol 3.125 mg tablet 6.25 mg PO BID 12/20/22 12/20/22 History cholecalciferol (vitamin D3) 10 10 mcg PO DAILY 12/20/22 12/20/22 History mcg (400 unit) tablet (Vitamin D3) lisinopril 20 mg tablet 20 mg PO AMHS 12/20/22 12/20/22 History multivitamin 1 tab PO DAILY 12/20/22 12/20/22 History omega [id number]-bky-[id number]-fish oil 1,000 mg 1 cap PO DAILY 12/20/22 12/20/22 History (120 mg-180 mg) capsule (Fish Oil) omeprazole 20 mg tablet,delayed 20 mg PO DAILYBB 12/20/22 12/20/22 History release travoprost 0.004 % eye drops 1 drp OPB DAILY 12/20/22 12/20/22 History Patient History Medical History Dysmetria Hyponatremia Word finding difficulty Social History Smoking Status: Current every day smoker Cigarettes Per Day: 8; Do You Dip or Chew Tobacco: No; Hx Alcohol Use: Yes Alcohol type: wine Hx Substance Use: No Preferred Language: Irish Communication Ability: Effective Windows Deployment Technician Required: No Beliefs That Will Affect Care: None Current Living Situation: Spouse and Family Other Information That Helps Us Care for You: No Feels Safe at Home: Yes Safety Concerns: Feels Safe At This Time Assistive Devices: Glasses, Hearing Aid - Bilateral, Scooter/Electric Scooter, Special Shoe, Walker and Wheelchair Review of Systems Review of Systems: All systems reviewed & are unremarkable except as noted in HPI & below Physical Exam Physical Exam: General Examination: Constitutional: Well developed person in no acute distress. HENT: Normal exam with inspection. CV: Hearth rhythm is regular. Neck: Supple, + right carotid bruits. Lungs: Non-labored and comfortable breathing. Abdomen: Soft, non-tender, non-distended. Skin: No rash or ecchymosis. Extremities: No edema or cyanosis NEUROLOGICAL EXAMINATION: Mental Status: Alert and oriented to place, person and time. Cranial Nerves: II-XII are intact. No nystagmus. Funduscopy: Normal looking optic discs. Motor: 5/5 in right upper and lower extremities. Left upper extremity strength is 4 out of 5 with left hand loan workout officer as 3+ out of 5. Left lower extremity strength is 5- out of 5. Tone: Normal without spasticity or rigidity. Sensory: Intact to all sensory modalities. Coordination: No dysmetria with FTN testing. Speech: The patient has some word finding difficulty. She reports no change of her baseline speech pattern. Comprehension is intact. Gait: Not assessed. Musculoskeletal: Normal muscle bulk, no atrophy. DTRs: 1+ on the right and 2- in the left extremities. No obvious Babinsky. Results & Data Vital Signs (Past 12 Hours) Vital Signs Temp Pulse Pulse Resp BP BP Pulse Ox 12/21/22 11:46 165/51 H 12/21/22 11:46 64 19 100 12/21/22 11:43 66 19 90 12/21/22 11:43 189/89 H 12/21/22 11:43 189/89 H 12/21/22 11:40 65 23 100 12/21/22 11:31 68 15 12/21/22 10:40 62 17 100 12/21/22 10:36 93 H 19 156/72 H 100 12/21/22 10:00 36.6 C 65 18 169/68 H 99 12/21/22 09:36 36.5 C 59 L 20 171/71 H 99 12/21/22 07:49 77 12/21/22 04:10 36.5 C 64 16 180/79 H 98 O2 Del Method 12/21/22 11:46 12/21/22 11:46 12/21/22 11:43 12/21/22 11:43 12/21/22 11:43 12/21/22 11:40 12/21/22 11:31 12/21/22 10:40 12/21/22 10:36 12/21/22 10:00 Room Air 12/21/22 09:36 Room Air 12/21/22 07:49 12/21/22 04:10 Room Air Laboratory Results Laboratory Results - last 24 hr 12/20/22 12/20/22 12/20/22 21:44 21:44 21:44 WBC 3.78 L RBC 3.83 L Hgb 8.9 L POC Hgb Hct 27.1 L POC Hct MCV 70.8 L MCH 23.2 L MCHC 32.8 RDW Std Deviation 42.7 RDW Coeff of Kaye 16.9 H Plt Count 425 H MPV 9.8 Immature Gran % (Auto) 0.3 Neut % (Auto) 68.7 Lymph % (Auto) 21.7 Cheyenne % (Auto) 8.5 Eos % (Auto) 0.0 Baso % (Auto) 0.8 Neut # (Auto) 2.60 Lymph # (Auto) 0.82 L [place] # (Auto) 0.32 Eos # (Auto) 0.00 Baso # (Auto) 0.03 Immature Gran # (Auto) 0.01 PT 11.3 INR 1.1 APTT 26.5 PTT Ratio 1.0 POC Sodium Sodium POC Potassium Potassium POC Chloride Chloride Carbon Dioxide POC Total CO2 Anion Gap POC Anion Gap POC BUN BUN Creatinine POC Creatinine Est Cr Clr Drug Dosing Est GFR ( Amer) Est GFR (Non-Af Amer) BUN/Creatinine Ratio Glucose POC Glucose (other) Estimat Average Glucose Hemoglobin A1c Osmolality Calcium POC Ioniz Calcium Hu Magnesium Iron TIBC Unsaturated IBC Transferrin % Sat Total Bilirubin AST ALT Alkaline Phosphatase Troponin I High Sens Total Protein Albumin Globulin Albumin/Globulin Ratio Triglycerides Cholesterol LDL Cholesterol, Calc VLDL Cholesterol, Calc HDL Cholesterol Cholesterol/HDL Ratio Vitamin B12 Folate SARS-CoV-2, RNA, NAAT Blood Type A Positive Antibody Screen NEGATIVE 12/20/22 12/20/22 12/20/22 21:44 21:48 22:08 WBC RBC Hgb POC Hgb 10.5 L Hct POC Hct 31 L MCV MCH MCHC RDW Std Deviation RDW Coeff of Kaye Plt Count MPV Immature Gran % (Auto) Neut % (Auto) Lymph % (Auto) [place] % (Auto) Eos % (Auto) Baso % (Auto) Neut # (Auto) Lymph # (Auto) [place] # (Auto) Eos # (Auto) Baso # (Auto) Immature Gran # (Auto) PT INR APTT PTT Ratio POC Sodium 129 L Sodium 127 L POC Potassium 3.6 Potassium 3.5 POC Chloride 93 L Chloride 97 L Carbon Dioxide 23 POC Total CO2 22 L Anion Gap 7 POC Anion Gap 19.0 POC BUN 12 BUN 13 Creatinine 0.43 L POC Creatinine 0.3 L Est Cr Clr Drug Dosing 85.2 Est GFR ( Amer) 109.0 Est GFR (Non-Af Amer) 94.1 BUN/Creatinine Ratio 30.2 H Glucose 199 H POC Glucose (other) 193 H Estimat Average Glucose Hemoglobin A1c Osmolality Calcium 8.9 POC Ioniz Calcium Hu 1.17 Magnesium 1.6 L Iron TIBC Unsaturated IBC Transferrin % Sat Total Bilirubin 0.3 AST 15 ALT 8 Alkaline Phosphatase 87 Troponin I High Sens 10.7 Total Protein 6.7 Albumin 3.8 Globulin 2.9 Albumin/Globulin Ratio 1.3 Triglycerides Cholesterol LDL Cholesterol, Calc VLDL Cholesterol, Calc HDL Cholesterol Cholesterol/HDL Ratio Vitamin B12 Folate SARS-CoV-2, RNA, NAAT NEGATIVE Blood Type Antibody Screen 12/21/22 12/21/22 12/21/22 05:30 05:30 05:30 WBC 5.66 RBC 3.71 L Hgb 8.6 L POC Hgb Hct 26.0 L POC Hct MCV 70.1 L MCH 23.2 L MCHC 33.1 RDW Std Deviation 42.4 RDW Coeff of Kaye 16.9 H Plt Count 413 H MPV 9.6 Immature Gran % (Auto) 0.5 Neut % (Auto) 56.7 Lymph % (Auto) 27.0 Cheyenne % (Auto) 15.0 Eos % (Auto) 0.4 Baso % (Auto) 0.4 Neut # (Auto) 3.21 Lymph # (Auto) 1.53 Cheyenne # (Auto) 0.85 H Eos # (Auto) 0.02 Baso # (Auto) 0.02 Immature Gran # (Auto) 0.03 PT INR APTT PTT Ratio POC Sodium Sodium 133 L POC Potassium Potassium 3.5 POC Chloride Chloride 101 Carbon Dioxide 26 POC Total CO2 Anion Gap 6 POC Anion Gap POC BUN BUN 9 Creatinine 0.33 L POC Creatinine Est Cr Clr Drug Dosing 111.0 Est GFR ( Amer) 118.9 Est GFR (Non-Af Amer) 102.6 BUN/Creatinine Ratio 27.3 H Glucose 104 H POC Glucose (other) Estimat Average Glucose 105 Hemoglobin A1c 5.3 Osmolality Calcium 8.7 POC Ioniz Calcium Hu Magnesium Iron 11 L TIBC 376 Unsaturated IBC 365 H Transferrin % Sat 3 L Total Bilirubin AST ALT Alkaline Phosphatase Troponin I High Sens Total Protein Albumin Globulin Albumin/Globulin Ratio Triglycerides 53 Cholesterol 160 LDL Cholesterol, Calc 78 VLDL Cholesterol, Calc 11 HDL Cholesterol 71 Cholesterol/HDL Ratio 2.3 Vitamin B12 Folate SARS-CoV-2, RNA, NAAT Blood Type Antibody Screen 12/21/22 12/21/22 12/21/22 05:30 05:30 13:04 WBC RBC Hgb POC Hgb Hct POC Hct MCV MCH MCHC RDW Std Deviation RDW Coeff of Kaye Plt Count MPV Immature Gran % (Auto) Neut % (Auto) Lymph % (Auto) [place] % (Auto) Eos % (Auto) Baso % (Auto) Neut # (Auto) Lymph # (Auto) [place] # (Auto) Eos # (Auto) Baso # (Auto) Immature Gran # (Auto) PT INR APTT PTT Ratio POC Sodium Sodium Pending POC Potassium Potassium Pending POC Chloride Chloride Pending Carbon Dioxide Pending POC Total CO2 Anion Gap Pending POC Anion Gap POC BUN BUN Pending Creatinine Pending POC Creatinine Est Cr Clr Drug Dosing Pending Est GFR ( Amer) Pending Est GFR (Non-Af Amer) Pending BUN/Creatinine Ratio Pending Glucose Pending POC Glucose (other) Estimat Average Glucose Hemoglobin A1c Osmolality 278 L Calcium Pending POC Ioniz Calcium Hu Magnesium Iron TIBC Unsaturated IBC Transferrin % Sat Total Bilirubin AST ALT Alkaline Phosphatase Troponin I High Sens Total Protein Albumin Globulin Albumin/Globulin Ratio Triglycerides Cholesterol LDL Cholesterol, Calc VLDL Cholesterol, Calc HDL Cholesterol Cholesterol/HDL Ratio Vitamin B12 408 Folate > 22.30 SARS-CoV-2, RNA, NAAT Blood Type Antibody Screen Diagnostic Findings Head CT 12/20/22 21:22 CR Exam(s): CT HEAD Without Contrast EXAM: CT Head Without Intravenous Contrast CLINICAL HISTORY: neuro deficit, acute stroke suspected. TECHNIQUE: Axial computed tomography images of the head/brain without intravenous contrast. CTDI is 72.16 mGy and DLP is 1252.22 mGy-cm. Automated exposure control was utilized for the study. A dose lowering technique was utilized adhering to the principles of ALARA. COMPARISON: No relevant prior studies available. FINDINGS: Brain: No intracranial hemorrhage. No significant mass effect. No evidence for cortical infarct. Mild prominence of the cerebral sulci and sylvian fissures. Mild periventricular deep white matter hypodense changes noted. Ventricles: Unremarkable. No midline shift or ventriculomegaly. Bones/joints: Unremarkable. No acute fracture. Soft tissues: Unremarkable. Sinuses: Unremarkable as visualized. No acute sinusitis. Mastoid air cells: Unremarkable as visualized. No mastoid effusion. IMPRESSION: No acute intracranial process identified. Communications: Call Doctor Stroke Electronically signed by: Taiwo Delgado MD 12/20/22 21:42 PM Head CTA 12/20/22 21:22 CR Exam(s): CTA HEAD With Contrast IV Amt: 117 ML OPTIRAY 320 EXAM: CT Angiography Head With Intravenous Contrast CLINICAL HISTORY: neuro deficit, acute stroke suspected. TECHNIQUE: Axial computed tomographic angiography images of the head with intravenous contrast. CTDI is 19.8 mGy and DLP is 9.9 mGy-cm. Automated exposure control was utilized for the study. A dose lowering technique was utilized adhering to the principles of ALARA. MIP reconstructed images were created and reviewed. CONTRAST: Patient received 117 ML OPTIRAY 320 of IV contrast COMPARISON: No relevant prior studies available. FINDINGS: Right internal carotid artery: The right internal carotid artery is occluded from the cervical region through the petrous portion. There is reconstitution in the cavernous segment of the right internal carotid artery. The supraclinoid portion is patent, presumably from collateral flow. No aneurysm. Right anterior cerebral artery: The right A1 segment is patent. The right anterior cerebral artery is patent. No occlusion or significant stenosis. No aneurysm. Right middle cerebral artery: The right M1 segment and distal middle cerebral branches are patent, although slightly diminutive in appearance when compared to the previous examination. No thrombus burden identified. No aneurysm. Right posterior cerebral artery: The right posterior cerebral artery demonstrates a origin via the right posterior communicating artery. The posterior cerebral artery is patent. No occlusion or significant stenosis. No aneurysm. Right vertebral artery: The distal right vertebral artery is small in caliber but is patent. Left internal carotid artery: No acute findings. Intracranial segment is patent with no significant stenosis. No aneurysm. Left anterior cerebral artery: Unremarkable. No occlusion or significant stenosis. No aneurysm. Left middle cerebral artery: Unremarkable. No occlusion or significant stenosis. No aneurysm. Left posterior cerebral artery: Unremarkable. No occlusion or significant stenosis. No aneurysm. Left vertebral artery: Unremarkable as visualized. Basilar artery: Unremarkable. No occlusion or significant stenosis. No aneurysm. IMPRESSION: 1. The right internal carotid artery is occluded from the cervical region through the petrous portion. There is reconstitution in the cavernous segment of the right internal carotid artery. The supraclinoid portion is patent, presumably from collateral flow. 2. The right M1 segment and distal middle cerebral branches are patent, although slightly diminutive in appearance when compared to the previous examination. No thrombus burden identified. If there is concern for insufficient perfusion to the right MCA or right CHEMICAL EQUIPMENT SALES ENGINEER territory, CT perfusion or MRI is strongly recommended. 3. The right posterior cerebral artery demonstrates a origin via the right posterior communicating artery. The posterior cerebral artery is patent. However, given the proximal internal carotid artery occlusion, please correlate with clinical symptoms. Communications: Verify Receipt Call Doctor Stroke Electronically signed by: Taiwo Delgado MD 12/20/22 21:51 PM Neck CTA 12/20/22 21:22 CR Exam(s): CTA NECK With Contrast IV Amt: 117 ML OPTIRAY 320 EXAM: CT Angiography Neck With Intravenous Contrast CLINICAL HISTORY: neuro deficit, acute stroke suspected. TECHNIQUE: Routine carotid CT angiography protocol was performed with intravenous contrast. NASCET criteria using the distal ICAs for comparison were used for evaluation of stenoses. CTDI is 8.49 mGy and DLP is 320.92 mGy-cm. Automated exposure control was utilized for the study. A dose lowering technique was utilized adhering to the principles of ALARA. MIP reconstructed images were created and reviewed. CONTRAST: Patient received 117 ML OPTIRAY 320 of IV contrast COMPARISON: None. FINDINGS: VASCULATURE: Right common carotid artery: Unremarkable. No occlusion or significant stenosis. No dissection. Right internal carotid artery: There is a partially calcified atheromatous disease involving the proximal right internal carotid artery at the bifurcation. There is occlusion of the right internal carotid artery immediately beyond the bifurcation. This remains occluded throughout its cervical course to the skull base. Right external carotid artery: Unremarkable. No occlusion. Right vertebral artery: The right vertebral artery is small in caliber but is patent throughout its course. No occlusion or significant stenosis. No dissection. Left common carotid artery: There is some intimal hyperplasia and eccentric atheromatous material throughout the left common carotid artery with mild (less than 50%) stenosis. No occlusion or high-grade stenosis noted. Left internal carotid artery: Atherosclerotic calcification with mild atheromatous changes involving the proximal left internal carotid artery. No significant stenosis. The mid to distal left internal carotid artery is patent. No dissection. Left external carotid artery: Unremarkable. No occlusion. Left vertebral artery: Unremarkable. No occlusion or significant stenosis. No dissection. Brachiocephalic and subclavian arteries: There is a type III branching pattern of the proximal great vessels without significant ostial stenosis. Aorta: The aorta is patent with atherosclerotic changes. NECK: Bones/joints: Unremarkable. Soft tissues: Unremarkable. Lung apices: Clear. CAROTID STENOSIS REFERENCE USING NASCET CRITERIA: % ICA stenosis = (1 - narrowest ICA diameter/diameter of distal cervical ICA) x 100. Mild - <50% stenosis. Moderate - 50-69% stenosis. Severe - 70-94% stenosis. Near occlusion - 95-99% stenosis. Occluded - 100% stenosis. IMPRESSION: 1. There is occlusion of the right internal carotid artery immediately beyond the bifurcation. This remains occluded throughout its cervical course to the skull base. 2. There is some intimal hyperplasia and eccentric atheromatous material throughout the left common carotid artery with mild (less than 50%) stenosis. No occlusion or high-grade stenosis noted. 3. Otherwise no significant abnormality involving the cervical arterial examination. Communications: Call Doctor Stroke Electronically signed by: Taiwo Delgado MD 12/20/22 21:55 PM Brain MRI 12/21/22 01:48 Exam(s): MRI HEAD W/WO Contrast IV Amt: 5cc gadavist EXAM: MR Head Without and With Intravenous Contrast CLINICAL HISTORY: acute cva. TECHNIQUE: Magnetic resonance images of the head/brain without and with intravenous contrast in multiple planes. CONTRAST: Patient received 5cc Gadavist of IV contrast COMPARISON: Intracranial CTA examination performed 12/20/2022 at 2128 hrs. FINDINGS: Brain: Abnormal foci of diffusion restriction involving the right parietal region adjacent to the central sulcus. There is also a focus of diffusion restriction in the periventricular deep white matter of the right parietal region and in the subcortical white matter of the right occipital region. No intracranial hemorrhage. No significant mass effect. Mild prominence of the cerebral sulci and sylvian fissures is noted. Hyperintense T2 periventricular deep white matter changes noted diffusely. Ventricles: Unremarkable. No ventriculomegaly. Bones/joints: Unremarkable. Sinuses: Unremarkable as visualized. No acute sinusitis. Mastoid air cells: Unremarkable as visualized. No mastoid effusion. Orbits: Unremarkable as visualized. Internal carotid arteries: The petrous and cavernous right internal carotid artery demonstrates asymmetric increased signal without a normal vascular flow void, consistent with occlusion noted on the CT examination performed earlier. IMPRESSION: Abnormal foci of diffusion restriction involving the right parietal region adjacent to the central sulcus. There is also a focus of diffusion restriction in the periventricular deep white matter of the right parietal region and in the subcortical white matter of the right occipital region. Findings are most consistent with areas of ischemia. No significant mass effect or midline shift. No evidence for hemorrhagic transformation. No abnormal contrast enhancement. Electronically signed by: Taiwo Delgado MD 12/21/22 03:[address] 12/21/22 09:53 CT angio head w con, CT head/brain wo con CLINICAL HISTORY: 82 years-old Female with neuro deficit, acute stroke suspected. Acute strokelike symptoms COMPARISON STUDY: Brain MRI of same day, CTA head and neck 12/20/2022 TECHNIQUE: Unenhanced axial CT scan of the brain is performed. Subsequently, following the IV administration of cc of Optiray, CT angiogram of the brain was performed from the skull base to the vertex. Images are reviewed in the axial, sagittal, and coronal planes. 3-D MIPS images are created and assessed. IV contrast was administered without complication. All measurements were obtained according to NASCET criteria. A dose lowering technique was utilized adhering to the principles of ALARA. CT DOSE: 936.84 mGy.cm FINDINGS: CT BRAIN: There is no acute intracranial hemorrhage, midline shift, hydrocephalus, intracranial mass, territorial ischemia or abnormal extra-axial collections. No abnormal intra-axial or extra-axial enhancement. Involutional changes with chronic microvascular ischemic disease redemonstrated. The subtle acute infarcts in the right cerebral hemisphere described on the same-day brain MRI are not identified by CT. Mastoid air cells and middle ear cavities are clear. Prior bilateral lens repair. No calvarial fracture. Paranasal sinuses are clear. CT ANGIOGRAM OF THE BRAIN: There is improved flow within the imaged distal right ICA compared to yesterday's study. The right internal carotid artery however is mildly diminutive compared to the left. Mild multifocal luminal narrowing of the middle cerebral arteries. The anterior cerebral arteries are widely patent. The imaged distal vertebral arteries are patent. The basilar and posterior cerebral arteries are patent. origin of the right posterior cerebral artery. The cerebral venous sinuses are patent. There is no abnormal intracranial enhancement. IMPRESSION: 1. The subtle acute infarcts of the right cerebral hemisphere described on the brain MRI of same day are not visualized by CT. No acute territorial infarct identified. 2. No acute intracranial hemorrhage or midline shift. 3. Involutional changes with chronic microvascular ischemic disease. 4. There is increased flow within the imaged distal right internal carotid artery compared to the 12/20/2022 study. ACT 112: Negative or not required by law. The above report was generated using voice recognition software. It may contain grammatical, syntax or spelling errors. Electronically signed by: Jean Rosenbaum M.D. 12/21/2022 10:20 AM Head CTA 12/21/22 09:53 CT angio head w con, CT head/brain wo con CLINICAL HISTORY: 82 years-old Female with neuro deficit, acute stroke suspected. Acute strokelike symptoms COMPARISON STUDY: Brain MRI of same day, CTA head and neck 12/20/2022 TECHNIQUE: Unenhanced axial CT scan of the brain is performed. Subsequently, following the IV administration of cc of Optiray, CT angiogram of the brain was performed from the skull base to the vertex. Images are reviewed in the axial, sagittal, and coronal planes. 3-D MIPS images are created and assessed. IV contrast was administered without complication. All measurements were obtained according to NASCET criteria. A dose lowering technique was utilized adhering to the principles of ALARA. CT DOSE: 936.84 mGy.cm FINDINGS: CT BRAIN: There is no acute intracranial hemorrhage, midline shift, hydrocephalus, intracranial mass, territorial ischemia or abnormal extra-axial collections. No abnormal intra-axial or extra-axial enhancement. Involutional changes with chronic microvascular ischemic disease redemonstrated. The subtle acute infarcts in the right cerebral hemisphere described on the same-day brain MRI are not identified by CT. Mastoid air cells and middle ear cavities are clear. Prior bilateral lens repair. No calvarial fracture. Paranasal sinuses are clear. CT ANGIOGRAM OF THE BRAIN: There is improved flow within the imaged distal right ICA compared to yesterday's study. The right internal carotid artery however is mildly diminutive compared to the left. Mild multifocal luminal narrowing of the middle cerebral arteries. The anterior cerebral arteries are widely patent. The imaged distal vertebral arteries are patent. The basilar and posterior cerebral arteries are patent. origin of the right posterior cerebral artery. The cerebral venous sinuses are patent. There is no abnormal intracranial enhancement. IMPRESSION: 1. The subtle acute infarcts of the right cerebral hemisphere described on the brain MRI of same day are not visualized by CT. No acute territorial infarct identified. 2. No acute intracranial hemorrhage or midline shift. 3. Involutional changes with chronic microvascular ischemic disease. 4. There is increased flow within the imaged distal right internal carotid artery compared to the 12/20/2022 study. ACT 112: Negative or not required by law. The above report was generated using voice recognition software. It may contain grammatical, syntax or spelling errors. Electronically signed by: Jean Rosenbaum M.D. 12/21/2022 10:20 AM Neck CTA 12/21/22 09:53 CT angio neck with con CLINICAL HISTORY: neuro deficit, acute stroke suspected TECHNIQUE: CT angiography of the neck was performed following intravenous adm inistration of iodinated contrast. Coronal and sagittal MIPS were obtained from the axial data set and were submitted for review. Automated dose lowering techniques and/or adjustment according to patient size were utilized for this examination. All measurements were calculated based on NASCET criteria. Comparison: Comparison is made to CTA neck 12/20/2022 FINDINGS: Biapical scarring is seen. CTA Neck: A 3 vessel aortic arch is shown. There is hemodynamically significant stenosis of the right internal carotid artery at the bifurcation, distal opacification is seen which is The common carotid, external carotid, cervical segments of the internal carotid arteries, and the cervical segments of the vertebral arteries are patent without hemodynamically significant stenosis. The left vertebral artery is dominant. IMPRESSION: There is near occlusion of the right internal carotid artery increased patency and distal reconstitution compared to the prior exam. Otherwise no acute abn ormality is seen and no high-grade stenosis is seen. Assessment of stenosis of the internal carotid arteries is based on NASCET criteria. ACT 112: Negative or not required by law. Electronically signed by: [place] M.D. 12/21/2022 10:51 AM Brain MRI 12/21/22 10:25 MR brain wo con CLINICAL HISTORY: cva TECHNIQUE: Multiplanar and multisequence MR images of the brain were obtained without intravenous contrast. Comparison: Comparison is made to CTA head and neck 12/21/2022 FINDINGS: Exam is highly limited by patient motion. There is a punctate focus of restricted diffusion in the right parietal lobe measuring 5 mm. Foci of T2 and FLAIR hyperintensity are noted in the paraventricular areas consistent with chronic small vessel ischemic disease. Ex vacuo ventriculomegaly and sulcal enlargement is noted compatible with diffuse encephalomalacia. No mass is seen. There is no mass effect or midline shift. There is no evidence of acute intrapa renchymal hemorrhage. No extra axial fluid collections are seen. The corpus callosum, pituitary gland, and cerebellar tonsils appear grossly unremarkable. Flow voids of the major intracranial arterial vessels are identified. The imaged portions of the paranasal sinuses, mastoid air cells, and orbits are unremarkable. IMPRESSION: Punctate infarct in the right parietal lobe. No intraparenchymal hemorrhage is seen. ACT 112: Negative or not required by law. Electronically signed by: [place] M.D. 12/21/2022 11:46 AM TTE--Normal left ventricular size, with normal systolic function with ejection fraction of 55 to 60%, no PFO, no valvular abnormality, bilateral atrial sizes are normal.
[2022-12-21 15:54] LABS: BUN Creatinine Ratio 22.9 (10-20); Calcium 8.7 mg/dl (8.6-10.3); Creatinine Clr Calc Pharmacy 104.6 ml/min; Est GFR (African American) 116.6 ml/min; Est GFR (Non-African American) 100.6 ml/min; Potassium 3.3 mmol/L (3.5-5.1)
[2022-12-21] MEDS: PANTOprazole 40 MG in SYRINGE 0 ML IV SCH (19:50)
[2022-12-21 20:05] LABS: Basophils # (auto) 0.02 K/uL (0-0.2); Basophils % (auto) 0.4 %; Eosinophils # (auto) 0.02 K/uL (0-0.50); Eosinophils % (auto) 0.4 %; Hematocrit (blood only) 22.4 % (37.0-47.0); Hemoglobin 7.4 g/dl (12.0-16.0); Immature Granulocytes # (auto) 0.01 K/uL (0.01-0.20); Immature Granulocytes % (auto) 0.2 %; Lymphocytes # (auto) 1.22 K/uL (1.2-3.4); Lymphocytes % (auto) 26.6 %; Mean Corpuscular Hemoglobin 23.3 pg (25.0-34.0); Mean Corpuscular Volume 70.7 fL (80.0-100.0); Mean Platelet Volume 10.3 fL (9.4-12.4); Monocytes # (auto) 0.57 K/uL (0.11-0.59); Monocytes % (auto) 12.4 %; Neutrophils # (auto) 2.74 K/uL (1.40-6.50); Platelet Count 375 K/uL (130-400); RDW Standard Deviation 43.1 fL (36.4-46.3); Red Blood Count 3.17 M/uL (4.20-5.40); White Blood Count 4.58 K/ul (4.8-10.8)
--- NOTE | 2022-12-21 20:07 | Communication Note ---
Date of Service: December 21, 2022 Patient with two eppisodes of hematochezia per rectum. There is no stool with these and noted clots, maroon colored. Reviewing history patient with Esoph agitis, gastric ulcers (2017), duodenal atrophy- normal EGD in 2021, Colonoscopy in 2016 with diverticulosis in sigmoid colon and internal hemorrhoids- has not had a repeat colonoscopy since. Patient is without hemodynamic compromise at this time. She was placed on DAPT therapy today with ASA and Plavix for her CVA. She is poor historian and with some aphasia- but denies abdominal pain and is without guarding or firmness on exam. Will obtain Type and Screen, repeat labs, transfuse if HGB downtrends. CTA of the abdomen and pelvis. Change Protonix to 40mg IV BID- and should likely continue BID dosing while she is on DAPT therapy. Follow labs and hemodynamics. GI consultation pending imaging and events through night. Kai TERRY ([facility]-)
[2022-12-21 20:18] LABS: BUN Creatinine Ratio 25.5 (10-20); Calcium 8.6 mg/dl (8.6-10.3); Creatinine Clr Calc Pharmacy 77.9 ml/min; Est GFR (African American) 105.9 ml/min; Est GFR (Non-African American) 91.3 ml/min; Potassium 4.3 mmol/L (3.5-5.1)
[2022-12-21 20:24] LABS: Polychromasia 1+
[2022-12-21] MEDS ORDERED: SODIUM CHLORIDE 0.9% 250 ML IV PRN (21:26)
--- NOTE | 2022-12-21 21:29 | CT Scan Report ---
CT angio abdomen pelvis w con CT DOSE: 260.63 mGy.cm CLINICAL HISTORY: GI bleed eval for diverticular/lower bleed TECHNIQUE: Multiaxial CT images of the abdomen and pelvis were performed following the intravenous ad ministration of contrast. Maximum intensity projection images were also obtained to evaluate the sheri r arterial structures. A dose lowering technique was utilized adhering to the principles of ALARA. COMPARISON STUDY: None. FINDINGS: Mild dependent changes seen at the lung bases. The heart is mildly enlarged. No pneumoperit oneum. No pneumatosis. There is a subacute/healing fracture within the greater trochanter of the prox imal left femur. There is streak artifact and metallic artifact partially obscuring the mid abdominal structures due to the patient's overlapping left arm. No bowel wall thickening or obstruction. Fluid -filled large and small bowel. This could represent a gastroenteritis/diarrheal illness. Visualized a ppendix is unremarkable. There is a small amount of hyperdense material within the left vaginal cuff best seen on image 327. This could represent contrast in the setting of a fistula, possibly from the adjacent bladder. However, no definite fistula identified on this study. The bladder is filled with c ontrast from the prior CT examinations. The liver, gallbladder, pancreas, and spleen are unremarkable . There are small left renal cysts. Normal right kidney. No hydronephrosis. No retroperitoneal lympha denopathy. Normal right adrenal gland. There is an indeterminate 2.3 cm left adrenal gland nodule. No pelvic lymphadenopathy or pelvic free fluid. The uterus and adnexa are unremarkable. Extensive calcified plaque within the aorta and iliac arteries. There is a beaded appearance to the b ilateral renal arteries consistent with fibromuscular dysplasia. 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 This is best seen on image 122. Focal high-grade stenosis with possible occlusion at the takeo ff of the celiac artery. However, the remaining celiac artery is patent. The superior mesenteric rios ry and inferior mesenteric artery are patent. Normal caliber abdominal aorta. Moderate to severe mult ifocal stenosis within the left common and external iliac arteries due to the calcified plaque. There is mild to moderate multifocal stenosis within the right common and external iliac arteries. IMPRESSION: 1. There is a subacute/healing fracture within the greater trochanter of the proximal left femur. 2. Fluid-filled large and small bowel. This could represent a gastroenteritis or diarrhea illness. 3. No definite bowel wall thickening or obstruction. 4. Normal appendix. 5. There is a small amount of hyperdense material within the left vaginal cuff as described above. Th is could represent contrast in the setting of a fistula, possibly from the adjacent bladder. However, no definite fistula identified on this study. 6. There is a beaded appearance to the bilateral renal arteries consistent with fibromuscular dysplas ia. 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 7. Bilateral iliac artery stenosis, left greater than right, due to the extensive calcified plaque. 8. Additional findings as described above. ACT 112: Negative or not required by law. Electronically signed by: Zander Glez M.D. 12/21/2022 9:27 PM
[2022-12-22] MEDS: LABETALOL HCL IV 5 MG/ML 20ML IV PRN ×2 (01:56→08:01)
[2022-12-22] MEDS: SODIUM CHLORIDE 0.9% 1000ML 1,000 ML IV SCH (03:36)
[2022-12-22 04:22] LABS: Basophils # (auto) 0.01 K/uL (0-0.2); Basophils % (auto) 0.1 %; Hematocrit (blood only) 27.5 % (37.0-47.0); Hemoglobin 9.4 g/dl (12.0-16.0); Immature Granulocytes # (auto) 0.05 K/uL (0.01-0.20); Immature Granulocytes % (auto) 0.5 %; Lymphocytes # (auto) 1.02 K/uL (1.2-3.4); Mean Corpuscular Hemoglobin 24.2 pg (25.0-34.0); Mean Corpuscular Hgb Conc 34.2 g/dL (32.0-36.0); Mean Corpuscular Volume 70.7 fL (80.0-100.0); Mean Platelet Volume 9.8 fL (9.4-12.4); Monocytes # (auto) 0.68 K/uL (0.11-0.59); Monocytes % (auto) 6.6 %; Neutrophils # (auto) 8.47 K/uL (1.40-6.50); Neutrophils % (auto) 82.8 %; Platelet Count 356 K/uL (130-400); RDW Coefficient of Variation 17.6 % (11.5-14.5); RDW Standard Deviation 44.9 fL (36.4-46.3); Red Blood Count 3.89 M/uL (4.20-5.40); White Blood Count 10.23 K/ul (4.8-10.8)
[2022-12-22 04:35] LABS: BUN Creatinine Ratio 24.3 (10-20); Calcium 8.9 mg/dl (8.6-10.3); Est GFR (African American) 114.5 ml/min; Est GFR (Non-African American) 98.8 ml/min; Magnesium 1.8 mg/dl (1.7-2.4); Phosphorus 2.7 mg/dl (2.5-4.9); Potassium 3.7 mmol/L (3.5-5.1)
[2022-12-22] MEDS ORDERED: LABETALOL HCL IV 5 MG/ML 20ML IV STA (04:46)
[2022-12-22] MEDS ORDERED: lisinopril 20 MG TAB PO STA (04:52)
[2022-12-22] MEDS ORDERED: POTASSIUM CHLORIDE 20 MEQ/15 ML UDC PO STA (05:22)
--- NOTE | 2022-12-22 05:34 | Electrocardiogram Report ---
Test Reason : Blood Pressure : / mmHG Vent. Rate : 077 BPM Atrial Rate : 077 BPM P-R Int : 226 ms QRS Dur : 130 ms QT Int : 414 ms P-R-T Axes : 062 267 058 degrees QTc Int : 468 ms Sinus rhythm with 1st degree A-V block Possible Left atrial enlargement Right bundle branch block Inferior infarct (cited on or before 17-FEB-2011) Abnormal ECG When compared with ECG of 17-FEB-2011 10:26, MN interval has increased QRS axis Shifted left Confirmed by Sam Rojas ([id number]) on 12/22/2022 5:33:54 AM Referred By: REFERRED SELF Confirmed By:Sam Rojas
--- NOTE | 2022-12-22 05:39 | Electrocardiogram Report ---
Test Reason : Blood Pressure : / mmHG Vent. Rate : 066 BPM Atrial Rate : 066 BPM P-R Int : 214 ms QRS Dur : 126 ms QT Int : 456 ms P-R-T Axes : 058 -83 055 degrees QTc Int : 478 ms Poor data quality, interpretation may be adversely affected Sinus rhythm with 1st degree A-V block with Premature ventricular complexes Possible Left atrial enlargement Right bundle branch block Left anterior fascicular block Bifascicular block Cannot rule out Inferior infarct (cited on or before 17-FEB-2011) Abnormal ECG When compared with ECG of 20-DEC-2022 21:40, Premature ventricular complexes are now Present Confirmed by Sam Rojas ([id number]) on 12/22/2022 5:39:18 AM Referred By: REFERRED SELF Confirmed By:Sam Rojas
--- NOTE | 2022-12-22 07:12 | Critical Care Progress Note ---
Date of Service December 22, 2022 Assessment & Plan (1) Internal carotid artery occlusion: (2) Hypertension: (3) Hyponatremia: (4) Word finding difficulty: (5) Dysmetria: (6) Acute CVA (cerebrovascular accident): (7) Stroke-like symptom: Plan Reason Critically Ill: 82-year-old female here with a history significant for hypertension, thoracic aortic aneurysm, chronic hyponatremia, postpolio syndrome, breast cancer and gastric esophageal reflux disease who presented to the hospital overnight due to strokelike symptoms. She was brought to ICU for worsening stroke-like symptoms. Goals of Care: -Given significant clinical decline and requirement for intubation, patient's son and daughter have chosen to make the patient comfort measures only and DNR/DNI. -Discussed option for transfer to [place] for Neuro ICU but unlikely that any intervention would provide benefit to her clinical condition -Per family discussion, plan to extubate and provide pain relief as needed -Family is at bedside Neuro - Acute CVA [facility] ICU - Positive * Intubated, on Levophed * Repeat head CT with significant worsening right sided stroke * EEG completed this a.m., results pending Cardiovascular - Internal Carotid Artery Occlusion, Hypertension * Goal BP <200s systolic * Remained hypertensive overnight despite medications. BP dropped significantly to <70/60 * CTA abdomen/pelvis showed celiac artery stenosis and known internal carotid artery occlusion * Echo with evidence of a normal LVEF of 55 to 60%. Grade 1 diastolic dysfunction. No intra-arterial shunt seen. Moderate aortic valve sclerosis. * Holding Plavix, Aspirin and additional PO meds Respiratory - * Now intubated * See above, plan to extubate at family's desire for comfort measures * Blood gas pending GI - Hematochezia * Diet: NPO * Several moderate maroon colored bowel movements with clots overnight, additional bloody bowel movement this morning * Suspicion for lower GI bleed after restarting Plavix/Aspirin (Now holding both) * Per chart review, internal hemorrhoids noted on colonoscopy Renal/Lytes - Hyponatremia * Sodium low at 127 this a.m., was given bolus of hypertonic saline. 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 * Iron, transferrin % sat. low * Repeat CBC ordered ID - * No concerns for infection at this point, afebrile Integumentary - * No concerns at this time Lines/IV Access - * PIVs intact DVT Prophylaxis - * Holding chemoprophylaxis Thank you for allowing us to be part of this patient's care. Please refer to Dr. Robbins's documentation for any further recommendations. Admission and Anticipated Discharge Date Admission Date: December 21, 2022 Supervising Physician Co-Signing Physician Notes Patient seen and examined with resident physician. Agree with the assessment and plan aside for any additions/exceptions noted: Unfortunately, the patient continued to deteriorate throughout the morning. We sent her for a stat CT head which revealed a large MCA stroke. Patient had worsening mentation and there was concern of loss of control of her airway. We emergently intubated her. We started the patient on Levophed as her blood pressure started to drop precipitously. I suspect the patient is acutely herniating. She was given IV mannitol and hypertonic saline. I had a lengthy discussion with the patient's daughter at bedside and in the waiting room. The daughter showed me the living will which indicated that the patient would not want aggressive measures in the event of a catastrophic brain injury. Daughter also spoke with her brother and father. All are in agreement to proceed with comfort measures. We will compassionately extubate the patient and start the patient on comfort measures only. CRITICAL CARE TIME - I have personally spent 72 minutes of critical care time in the direct management of this patient. This is a life/limb threatening event. This includes time spent evaluating patient, direct bedside care, chart review, placing orders, interpretation of diagnostic studies, discussion with consultants, patient, and family members, as well as other required patient management activities. This time is exclusive of all separately billable procedures, and teaching time and separate from and in addition to any other critical care service time. Subjective Patient was seen and examined at bedside. Jory is restless, moving her legs around the bed during encounter. Overnight patient had maroon stools with clots, hemoglobin dropped from 8.6 to 7.4, she was given 1 unit of PRBCs. CTA abdomen/pelvis completed. This morning she failed her bedside swallow evaluation and is now NPO. She was unable to answer questions during the encounter this morning, made poor eye contact. Had an additional bloody bowel movement this morning ~10am. Patient had significant clinical decline this morning. Called and spoke with daughter and son, they were unsure of definitive wishes of their mother but since patient was listed as full code on arrival they initially chose to continue full code status. After intubation due to clinical decline, patient's daughter found a copy of her living will which indicated she would not want extraordinary measures taken and would not want chest compressions/breathing tube to keep her alive without quality of life. Patient's daughter at bedside, patient's son and are on their way to the hospital. Review of Systems Review of Systems: Unobtainable. Physical Exam Constitutional: + altered mental status, + frail appearing and + mechanically ventilated; + uncooperative ENMT: Moist mucous membranes. External ears and nose normal. Neck: trachea midline, no thyromegaly Respiratory: ET tube in place Cardiovascular: Regular rate and rhythm. No murmur/rub/gallop. +2 radial pulses bilaterally Gastrointestinal (Abdomen): Nondistended, abdomen soft. Neurologic: Intubated. Genitourinary: Park catheter in place. Results & Data Results & Data Vital Signs (Past 12 Hours) Vital Signs Temp Pulse Pulse Resp BP BP Pulse Ox 12/22/22 06:00 79 18 99 12/22/22 05:53 72 16 99 12/22/22 05:53 204/102 H 12/22/22 05:45 67 16 99 12/22/22 05:38 68 18 100 12/22/22 05:38 199/93 H 12/22/22 05:30 72 20 99 12/22/22 05:23 210/89 H 12/22/22 05:23 70 20 99 12/22/22 05:15 66 28 H 99 12/22/22 05:08 194/85 H 12/22/22 05:08 70 15 99 12/22/22 05:00 75 14 98 12/22/22 04:53 79 18 99 12/22/22 04:53 210/97 H 12/22/22 04:45 68 15 98 12/22/22 04:38 81 14 99 12/22/22 04:38 205/132 H 12/22/22 04:30 78 18 98 12/22/22 04:23 78 22 99 12/22/22 04:23 212/97 H 12/22/22 04:15 67 10 L 98 12/22/22 04:08 221/95 H 12/22/22 04:08 80 15 99 12/22/22 04:00 80 24 99 12/22/22 03:55 82 25 H 96 12/22/22 03:55 223/105 H 12/22/22 03:45 79 22 100 12/22/22 03:30 70 10 L 98 12/22/22 03:15 65 12 99 12/22/22 03:38 73 22 99 12/22/22 03:38 165/143 H 12/22/22 03:23 68 11 L 98 12/22/22 03:23 190/86 H 12/22/22 03:08 73 17 99 12/22/22 03:08 220/119 H 12/22/22 03:00 76 20 99 12/22/22 02:53 74 19 99 12/22/22 02:53 205/92 H 12/22/22 02:38 70 23 97 12/22/22 02:38 224/103 H 12/22/22 02:38 224/103 H 12/22/22 02:23 181/101 H 12/22/22 02:23 68 16 99 12/22/22 02:08 62 14 99 12/22/22 02:08 165/82 H 12/22/22 02:00 63 10 L 98 12/22/22 01:53 68 15 99 12/22/22 01:53 182/81 H 12/22/22 01:45 75 17 98 12/22/22 01:38 89 26 H 12/22/22 01:38 229/116 H 12/22/22 01:30 79 23 98 12/22/22 01:23 226/112 H 12/22/22 01:23 81 19 99 12/22/22 01:15 80 20 99 12/22/22 01:08 78 20 99 12/22/22 01:08 224/109 H 12/22/22 01:00 73 22 99 03/31/23 00:53 79 22 99 12/22/22 00:53 225/113 H 12/22/22 00:45 80 22 99 12/22/22 00:38 226/113 H 12/22/22 00:38 76 14 99 12/22/22 00:30 77 18 99 12/22/22 00:23 216/110 H 12/22/22 00:23 79 23 100 12/22/22 00:30 36.6 C 69 20 229/116 H 99 12/22/22 00:15 79 19 100 12/22/22 00:08 75 24 100 12/22/22 00:08 221/115 H 12/22/22 00:00 78 21 99 12/21/22 23:53 222/101 H 12/21/22 23:53 76 23 100 12/21/22 23:45 74 22 99 12/21/22 23:42 213/106 H 12/21/22 23:42 73 19 99 12/21/22 23:30 74 22 99 12/21/22 23:24 180/102 H 12/21/22 23:24 74 23 99 12/21/22 23:15 72 22 100 12/21/22 23:08 70 12 99 12/21/22 23:08 195/89 H 12/21/22 23:00 76 31 H 99 12/21/22 22:53 76 20 99 12/21/22 22:53 186/123 H 12/21/22 22:45 75 19 100 12/21/22 22:38 164/92 H 12/21/22 22:38 79 14 100 12/21/22 22:30 72 19 100 12/21/22 22:23 171/85 H 12/21/22 22:23 66 10 L 100 12/21/22 23:54 36.6 C 77 18 222/101 H 100 12/21/22 23:43 36.6 C 73 20 213/106 H 100 12/21/22 23:38 36.6 C 77 20 190/100 H 100 12/21/22 23:36 36.6 C 73 20 180/102 H 100 12/21/22 23:16 36.6 C 72 20 195/89 H 100 12/21/22 22:54 36.6 C 71 20 183/123 H 100 12/21/22 22:24 36.6 C 77 20 171/85 H 100 12/21/22 22:15 69 14 99 12/21/22 22:08 73 20 99 12/21/22 22:08 173/82 H 12/21/22 22:00 100 12/21/22 21:53 82 20 98 12/21/22 21:53 198/89 H 12/21/22 21:45 79 19 99 12/21/22 21:15 76 19 98 12/21/22 22:09 36.6 C 67 20 173/82 H 98 12/21/22 21:51 36.2 C L 82 26 H 198/89 H 99 12/21/22 21:30 86 28 H 99 12/21/22 21:18 183/93 H 12/21/22 21:18 79 28 H 99 12/21/22 21:00 22 99 12/21/22 20:41 75 20 98 12/21/22 20:41 195/72 H 12/21/22 20:41 195/72 H 12/21/22 20:32 79 18 12/21/22 20:32 213/95 H 12/21/22 20:31 74 20 12/21/22 20:00 84 19 98 12/21/22 19:58 211/103 H 12/21/22 19:58 79 25 H 98 12/21/22 19:44 81 16 98 12/21/22 19:44 226/92 H 12/21/22 19:30 74 20 98 12/21/22 19:20 78 19 98 12/21/22 19:20 177/112 H 12/21/22 19:18 76 18 99 12/21/22 19:18 174/109 H 12/21/22 19:28 36.5 C 75 18 177/112 H 97 O2 Del Method 12/22/22 06:00 12/22/22 05:53 12/22/22 05:53 12/22/22 05:45 12/22/22 05:38 12/22/22 05:38 12/22/22 05:30 12/22/22 05:23 12/22/22 05:23 12/22/22 05:15 12/22/22 05:08 12/22/22 05:08 12/22/22 05:00 12/22/22 04:53 12/22/22 04:53 12/22/22 04:45 12/22/22 04:38 12/22/22 04:38 12/22/22 04:30 12/22/22 04:23 12/22/22 04:23 12/22/22 04:15 12/22/22 04:08 12/22/22 04:08 12/22/22 04:00 12/22/22 03:55 12/22/22 03:55 12/22/22 03:45 12/22/22 03:30 12/22/22 03:15 12/22/22 03:38 12/22/22 03:38 12/22/22 03:23 12/22/22 03:23 12/22/22 03:08 12/22/22 03:08 12/22/22 03:00 12/22/22 02:53 12/22/22 02:53 12/22/22 02:38 12/22/22 02:38 12/22/22 02:38 12/22/22 02:23 12/22/22 02:23 12/22/22 02:08 12/22/22 02:08 12/22/22 02:00 12/22/22 01:53 12/22/22 01:53 12/22/22 01:45 12/22/22 01:38 12/22/22 01:38 12/22/22 01:30 12/22/22 01:23 12/22/22 01:23 12/22/22 01:15 12/22/22 01:08 12/22/22 01:08 12/22/22 01:00 12/22/22 00:53 12/22/22 00:53 12/22/22 00:45 12/22/22 00:38 12/22/22 00:38 12/22/22 00:30 12/22/22 00:23 12/22/22 00:23 12/22/22 00:30 12/22/22 00:15 12/22/22 00:08 12/22/22 00:08 12/22/22 00:00 12/21/22 23:53 12/21/22 23:53 12/21/22 23:45 12/21/22 23:42 12/21/22 23:42 12/21/22 23:30 12/21/22 23:24 12/21/22 23:24 12/21/22 23:15 12/21/22 23:08 12/21/22 23:08 12/21/22 23:00 12/21/22 22:53 12/21/22 22:53 12/21/22 22:45 12/21/22 22:38 12/21/22 22:38 12/21/22 22:30 12/21/22 22:23 12/21/22 22:23 12/21/22 23:54 12/21/22 23:43 12/21/22 23:38 12/21/22 23:36 12/21/22 23:16 12/21/22 22:54 12/21/22 22:24 12/21/22 22:15 12/21/22 22:08 12/21/22 22:08 12/21/22 22:00 12/21/22 21:53 12/21/22 21:53 12/21/22 21:45 12/21/22 21:15 12/21/22 22:09 12/21/22 21:51 12/21/22 21:30 12/21/22 21:18 12/21/22 21:18 12/21/22 21:00 12/21/22 20:41 12/21/22 20:41 12/21/22 20:41 12/21/22 20:32 12/21/22 20:32 12/21/22 20:31 12/21/22 20:00 12/21/22 19:58 12/21/22 19:58 12/21/22 19:44 12/21/22 19:44 12/21/22 19:30 12/21/22 19:20 12/21/22 19:20 12/21/22 19:18 12/21/22 19:18 12/21/22 19:28 Room Air Diagnostic Findings Head CT 12/21/22 09:53 CT angio head w con, CT head/brain wo con CLINICAL HISTORY: 82 years-old Female with neuro deficit, acute stroke suspected. Acute strokelike symptoms COMPARISON STUDY: Brain MRI of same day, CTA head and neck 12/20/2022 TECHNIQUE: Unenhanced axial CT scan of the brain is performed. Subsequently, following the IV administration of cc of Optiray, CT angiogram of the brain was performed from the skull base to the vertex. Images are reviewed in the axial, sagittal, and coronal planes. 3-D MIPS images are created and assessed. IV contrast was administered without complication. All measurements were obtained according to NASCET criteria. A dose lowering technique was utilized adhering to the principles of ALARA. CT DOSE: 936.84 mGy.cm FINDINGS: CT BRAIN: There is no acute intracranial hemorrhage, midline shift, hydrocephalus, intracranial mass, territorial ischemia or abnormal extra-axial collections. No abnormal intra-axial or extra-axial enhancement. Involutional changes with chronic microvascular ischemic disease redemonstrated. The subtle acute infarcts in the right cerebral hemisphere described on the same-day brain MRI are not identified by CT. Mastoid air cells and middle ear cavities are clear. Prior bilateral lens repair. No calvarial fracture. Paranasal sinuses are clear. CT ANGIOGRAM OF THE BRAIN: There is improved flow within the imaged distal right ICA compared to yesterday's study. The right internal carotid artery however is mildly diminutive compared to the left. Mild multifocal luminal narrowing of the middle cerebral arteries. The anterior cerebral arteries are widely patent. The imaged distal vertebral arteries are patent. The basilar and posterior cerebral ar teries are patent. origin of the right posterior cerebral artery. The cerebral venous sinuses are patent. There is no abnormal intracranial enhancement. IMPRESSION: 1. The subtle acute infarcts of the right cerebral hemisphere described on the brain MRI of same day are not visualized by CT. No acute territorial infarct identified. 2. No acute intracranial hemorrhage or midline shift. 3. Involutional changes with chronic microvascular ischemic disease. 4. There is increased flow within the imaged distal right internal carotid artery compared to the 12/20/2022 study. ACT 112: Negative or not required by law. The above report was generated using voice recognition software. It may contain grammatical, syntax or spelling errors. Electronically signed by: Jean Rosenbaum M.D. 12/21/2022 10:20 AM Head CTA 12/21/22 09:53 CT angio head w con, CT head/brain wo con CLINICAL HISTORY: 82 years-old Female with neuro deficit, acute stroke suspected. Acute strokelike symptoms COMPARISON STUDY: Brain MRI of same day, CTA head and neck 12/20/2022 TECHNIQUE: Unenhanced axial CT scan of the brain is performed. Subsequently, following the IV administration of cc of Optiray, CT angiogram of the brain was performed from the skull base to the vertex. Images are reviewed in the axial, sagittal, and coronal planes. 3-D MIPS images are created and assessed. IV contrast was administered without complication. All measurements were obtained according to NASCET criteria. A dose lowering technique was utilized adhering to the principles of ALARA. CT DOSE: 936.84 mGy.cm FINDINGS: CT BRAIN: There is no acute intracranial hemorrhage, midline shift, hydrocephalus, intracranial mass, territorial ischemia or abnormal extra-axial collections. No abnormal intra-axial or extra-axial enhancement. Involutional changes with chronic microvascular ischemic disease redemonstrated. The subtle acute infarcts in the right cerebral hemisphere described on the same-day brain MRI are not identified by CT. Mastoid air cells and middle ear cavities are clear. Prior bilateral lens repair. No calvarial fracture. Paranasal sinuses are clear. CT ANGIOGRAM OF THE BRAIN: There is improved flow within the imaged distal right ICA compared to yesterday's study. The right internal carotid artery however is mildly diminutive compared to the left. Mild multifocal luminal narrowing of the middle cerebral arteries. The anterior cerebral arteries are widely patent. The imaged distal vertebral arteries are patent. The basilar and posterior cerebral arteries are patent. origin of the right posterior cerebral artery. The cerebral venous sinuses are patent. There is no abnormal intracranial enhancement. IMPRESSION: 1. The subtle acute infarcts of the right cerebral hemisphere described on the brain MRI of same day are not visualized by CT. No acute territorial infarct identified. 2. No acute intracranial hemorrhage or midline shift. 3. Involutional changes with chronic microvascular ischemic disease. 4. There is increased flow within the imaged distal right internal carotid artery compared to the 12/20/2022 study. ACT 112: Negative or not required by law. The above report was generated using voice recognition software. It may contain grammatical, syntax or spelling errors. Electronically signed by: Jean Rosenbaum M.D. 12/21/2022 10:20 AM Neck CTA 12/21/22 09:53 CT angio neck with con CLINICAL HISTORY: neuro deficit, acute stroke suspected TECHNIQUE: CT angiography of the neck was performed following intravenous administration of iodinated contrast. Coronal and sagittal MIPS were obtained from the axial data set and were submitted for review. Automated dose lowering techniques and/or adjustment according to patient size were utilized for this examination. All measurements were calculated based on NASCET criteria. Comparison: Comparison is made to CTA neck 12/20/2022 FINDINGS: Biapical scarring is seen. CTA Neck: A 3 vessel aortic arch is shown. There is hemodynamically significant stenosis of the right internal carotid artery at the bifurcation, distal opacification is seen which is The common carotid, external carotid, cervical segments of the internal carotid arteries, and the cervical segments of the vertebral arteries are patent without hemodynamically significant stenosis. The left vertebral artery is dominant. IMPRESSION: There is near occlusion of the right internal carotid artery increased patency and distal reconstitution compared to the prior exam. Otherwise no acute abnormality is seen and no high-grade stenosis is seen. Assessment of stenosis of the internal carotid arteries is based on NASCET criteria. ACT 112: Negative or not required by law. Electronically signed by: [place] M.D. 12/21/2022 10:51 AM Brain MRI 12/21/22 10:25 MR brain wo con CLINICAL HISTORY: cva TECHNIQUE: Multiplanar and multisequence MR images of the brain were obtained without intravenous contrast. Comparison: Comparison is made to CTA head and neck 12/21/2022 FINDINGS: Exam is highly limited by patient motion. There is a punctate focus of restricted diffusion in the right parietal lobe measuring 5 mm. Foci of T2 and FLAIR hyperintensity are noted in the paraventricular areas consistent with chronic small vessel ischemic disease. Ex vacuo ventriculomegaly and sulcal enlargement is noted compatible with diffuse encephalomalacia. No mass is seen. There is no mass effect or midline shift. There is no evidence of acute intraparenchymal hemorrhage. No extra axial fluid collections are seen. The corpus callosum, pituitary gland, and cerebellar tonsils appear grossly unremarkable. Flow voids of the major intracranial arterial vessels are identified. The imaged portions of the paranasal sinuses, mastoid air cells, and orbits are unremarkable. IMPRESSION: Punctate infarct in the right parietal lobe. No intraparenchymal hemorrhage is seen. ACT 112: Negative or not required by law. Electronically signed by: [place] M.D. 12/21/2022 11:46 AM Abdomen/Pelvis CTA 12/21/22 19:49 CT angio abdomen pelvis w con CT DOSE: 260.63 mGy.cm CLINICAL HISTORY: GI bleed eval for diverticular/lower bleed TECHNIQUE: Multiaxial CT images of the abdomen and pelvis were performed following the intravenous administration of contrast. Maximum intensity projection images were also obtained to evaluate the major arterial structures. A dose lowering technique was utilized adhering to the principles of ALARA. COMPARISON STUDY: None. FINDINGS: Mild dependent changes seen at the lung bases. The heart is mildly enlarged. No pneumoperitoneum. No pneumatosis. There is a subacute/healing fracture within the greater trochanter of the proximal left femur. There is streak artifact and metallic artifact partially obscuring the mid abdominal structures due to the patient's overlapping left arm. No bowel wall thickening or obstruction. Fluid-filled large and small bowel. This could represent a gastroenteritis/diarrheal illness. Visualized appendix is unremarkable. There is a small amount of hyperdense material within the left vaginal cuff best seen on image 327. This could represent contrast in the setting of a fistula, possibly from the adjacent bladder. However, no definite fistula identified on this study. The bladder is filled with contrast from the prior CT examinations. The liver, gallbladder, pancreas, and spleen are unremarkable. There are small left renal cysts. Normal right kidney. No hydronephrosis. No retroperitoneal lymphadenopathy. Normal right adrenal gland. There is an indeterminate 2.3 cm left adrenal gland nodule. No pelvic lymphadenopathy or pelvic free fluid. The uterus and adnexa are unremarkable. Extensive calcified plaque within the aorta and iliac arteries. There is a beaded appearance to the bilateral renal arteries consistent with fibromuscular dysplasia. 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 This is best seen on image 122. Focal high-grade stenosis with possible occlusion at the takeoff of the celiac artery. However, the remaining celiac artery is patent. The superior mesenteric artery and inferior mesenteric artery are patent. Normal caliber abdominal aorta. Moderate to severe multifocal stenosis within the left common and external iliac arteries due to the calcified plaque. There is mild to moderate multifocal stenosis within the right common and external iliac arteries. IMPRESSION: 1. There is a subacute/healing fracture within the greater trochanter of the proximal left femur. 2. Fluid-filled large and small bowel. This could represent a gastroenteritis or diarrhea illness. 3. No definite bowel wall thickening or obstruction. 4. Normal appendix. 5. There is a small amount of hyperdense material within the left vaginal cuff as described above. This could represent contrast in the setting of a fistula, possibly from the adjacent bladder. However, no definite fistula identified on this study. 6. There is a beaded appearance to the bilateral renal arteries consistent with fibromuscular dysplasia. This results in multifocal fusiform aneurysmal dil atation the bilateral renal arteries most pronounced on the right which measures up to 12 mm. 7. Bilateral iliac artery stenosis, left greater than right, due to the extensive calcified plaque. 8. Additional findings as described above. ACT 112: Negative or not required by law. Electronically signed by: Zander Glez M.D. 12/21/2022 9:27 PM Resident Activity Tracking Resident Involvement: Resident Care Provided Care Provided: Adult [facility]
[2022-12-22] MEDS: PANTOprazole 40 MG in SYRINGE 0 ML IV SCH (08:00)
[2022-12-22] MEDS ORDERED: carvediloL 3.125 MG TAB PO SCH (08:00)
[2022-12-22] MEDS ORDERED: hydrALAZINE HCL 20 MG/ML VIAL IV STA (08:21)
[2022-12-22] MEDS ORDERED: SODIUM CHLORIDE 3 % 100 ML IV ONE (08:21)
[2022-12-22] MEDS ORDERED: STAT IV STA (08:21)
[2022-12-22] MEDS ORDERED: STAT IV Infusion **Titration per Protocol STA (08:30)
[2022-12-22] MEDS ORDERED: niCARdipine 25 MG in SODIUM CHLORIDE 0.9% 240 ML IV SCH (08:30)
[2022-12-22] MEDS ORDERED: SODIUM CHLORIDE 1 GM TABLET PO SCH (09:00)
[2022-12-22] MEDS ORDERED: CLOPIDOGREL BISULFATE 75 MG TAB PO SCH (09:00)
--- NOTE | 2022-12-22 09:08 | Hospitalist Progress Note ---
Date of Service December 22, 2022 Assessment & Plan (1) Acute CVA (cerebrovascular accident): Plan: This is an 82-year-old female who presents with acute stroke. 1. Acute cerebrovascular accident with weakness in the left upper extremity in the hand and forearm. Symptoms initially improved. Imaging studies in ED showing occlusion of the right carotid artery from the cervical region through the petrous portion and reconstitution of the cavernous segment of the right internal carotid artery. The supraclinoid portion is patent, possibly from collateral flow. The M1 segment and distal middle cerebral branches are patent, although slightly diminutive from the previous exam. No thrombus were identified. [facility] neurologist thought that no intervention is needed at this time and was loaded with aspirin and statin, and also given magnesium and fluids and to call back [facility] if anything changes. Full stroke workup with MRI scan ordered. Continue with IV fluids. Permissive hypertension. Echocardiogram. Consult neurology. PT, OT. Will keep n.p.o. until seen by speech. Echo - normal LV chamber size with moderate concentric LVH, sigmoid appearing septum. Normal LV systolic function, EF 55 to 60%. No segmental LV wall motion abnormalities are noted. Grade 1 diastolic dysfunction. The interatrial septum is intact with no evidence for an ASD. Injection of contrast documented no interatrial shunt. Aortic valve sclerosis moderate, without significant aortic valvular stenosis. Brain MRI IMPRESSION: Punctate infarct in the right parietal lobe. No intraparenchymal hemorrhage is seen. 12/21 during PT session today, pt became more weak (in left UE), had more slurred speech/ word finding difficulty and was not following commands as before Stroke alert was called [facility] was called and discussed the case with - CT head w/o con, CTA head and neck obtained, brain MRI limited sequence also requested and obtained Initial evaluation, left upper extremity weakness/flaccid, able to answer yes and no questions, however not able to speak in full sentences. Reportedly during imaging studies patient very restless, when discussed this with [facility], they worry about possible seizure, and EEG also recommended After coming back from MRI, patient more alert, and her function much improved. Able to move her left upper extremity, able to move lower extremities somewhat as well. Able to answer questions much more coherently. Even though still continues to have some word finding difficulty and somewhat slurred speech. Given this episode, patient will for now stay in ICU for further monitoring. Per [facility] -recommend to lay flat, and recommend permissive hypertension, up to blood pressure of 200/110. Obtain EEG. Loaded with Plavix and continue Plavix daily with aspirin and statin. Consult vascular surgery for possible endarterectomy, for internal carotid occlusion. The above episode, and my conversation with [facility] was also discussed with inpatient neurologist, Dr. Ambriz, appreciate his input. 12/22 This morning, however patient less responsive, with poor eye contact, not able to take p.o. stat CT head was obtained, and showed progression of stroke. I was contacted by ICU physician about her worsening status, and new CT head results. I was then immediately present at the bedside. Patient obtunded and after discussing with family over the phone, patient being intubated. As patient was being intubated, I was contacting [facility], and discussed new findings and possible transfer to [facility]. Discussed with the stroke neurologist, as well as ICU neurologist, at this point no procedure was planned and they would be only able to provide supportive care. In addition patient's blood pressure dropped significantly as well, and is now requiring Levophed. Discussed this with daughter at the bedside. She was able to contact her brother and father. They were able to locate patient's wishes which were not consistent with current care, and so extubation is planned. CODE STATUS changed to DNR/DNI. 2. Hypertension:permissive hypertension allowed. Pt continued to be hypertensive. Continued her Coreg. After intubation patient became hypotensive, requiring IV Levophed. Care per ICU team. 3. History of gastric ulcer in the past, history of and AVMs and Damian's. She was on iron supplements in the past. Her EGD done in November 2021 was unremarkable.O admission, her hemoglobin is 8.9.stool Hemoccult, vitamin B12, folate levels, and iron studies ordered. Plan was to consult with GI once stable. Continued omeprazole. Overnight developed GI bleed, several bloody bowel movements, after being on aspirin and loaded with Plavix. CT abdomen pelvis obtained by ICU team. GI consulted. 4. Alcoholism: Drinks 2-3 glasses of red wine daily. Denies any withdrawal symptoms.Gave thiamine and folic acid. Continue her home multivitamins. Monitor for any withdrawal symptoms. 5. Tobacco abuse. 6. History of thoracic aortic aneurysm: echo obtained, as above. 7. History of left breast cancer in 2011: Status post partial left breast lumpectomy. 8. Hx of Post Polio syndrome. PT/OT DVT prophylaxis: SCDs. DISPOSITION:ICU Code: Code status discussed with family today, and changed to DNR/DNI Admission and Anticipated Discharge Date Admission Date: December 21, 2022 Subjective Pt seen in follow up of CVA Yesterday during PT session pt became more weak (in left UE), had more slurred speech/ word finding difficulty and was not following commands as before - Stroke alert was called, imaging and clinical status discussed w/ [facility] Pt then improved clinically but stayed in ICU for close monitoring - plan for EEG for poss. seizure eval, vasc. surgery consult as well She was also loaded with plavix per discussion w/ stroke neurologist Overnight she developed a GI bleed, had several bloody bowel movements. CT abdomen pelvis obtained, GI was consulted. This morning, however patient less responsive, with poor eye contact, not able to take p.o. stat CT head was obtained, and showed progression of stroke. I was contacted by ICU physician about her worsening status, and new CT head results. I was then immediately present at the bedside. Patient obtunded and after discussing with family, patient being intubated. As patient was being intubated, I was contacting [facility], and discussed new findings and possible transfer to [facility]. Discussed with the stroke neurologist, as well as ICU neurologist, at this point no procedure was planned and they would be only able to provide supportive care. In addition patient's blood pressure dropped significantly as well, and is now requiring Levophed. Discussed this with daughter at the bedside. She was able to contact her brother and father. They were able to locate patient's wishes which were not consistent with current care, and so extubation is planned. CODE STATUS changed to DNR/DNI. Review of Systems Review of Systems: Unobtainable due to cognitive status Physical Exam Physical Exam: GENERAL: thin elderly F , not responsive to voice or touch HEENT: NC/AT. NECK: No JVD, no neck masses. CARDIOVASCULAR: S1 and S2 heard. Regular rate and rhythm. No murmur, no gallop. RESPIRATORY:: Normal AP diameter. No accessory muscle use. No wheezing, no crackles. ABDOMEN: Soft, bowel sounds present, no distention. NEURO:laying in bed, not responsive to voice or touch Results & Data Results & Data Vital Signs (Past 12 Hours) Vital Signs Temp Pulse Pulse Resp BP BP Pulse Ox 12/22/22 08:23 71 20 98 12/22/22 08:23 215/88 H 12/22/22 08:15 71 19 98 12/22/22 08:08 72 21 98 12/22/22 08:08 205/90 H 12/22/22 08:00 78 22 98 12/22/22 07:53 77 19 98 12/22/22 07:53 216/107 H 12/22/22 07:45 74 24 98 12/22/22 07:38 198/96 H 12/22/22 07:38 75 29 H 98 12/22/22 07:30 76 18 98 12/22/22 07:23 209/95 H 12/22/22 07:23 75 22 98 12/22/22 07:15 78 22 98 12/22/22 07:08 69 18 96 12/22/22 07:08 189/76 H 12/22/22 07:00 72 22 96 12/22/22 06:53 210/97 H 12/22/22 06:53 74 19 96 12/22/22 06:45 76 21 96 12/22/22 07:00 37.0 C 78 20 209/95 H 98 12/22/22 06:00 79 18 99 12/22/22 05:53 72 16 99 12/22/22 05:53 204/102 H 12/22/22 05:45 67 16 99 12/22/22 05:38 68 18 100 12/22/22 05:38 199/93 H 12/22/22 05:30 72 20 99 12/22/22 05:23 210/89 H 12/22/22 05:23 70 20 99 12/22/22 05:15 66 28 H 99 12/22/22 05:08 194/85 H 12/22/22 05:08 70 15 99 12/22/22 05:00 75 14 98 12/22/22 04:53 79 18 99 12/22/22 04:53 210/97 H 12/22/22 04:45 68 15 98 12/22/22 04:38 81 14 99 03/31/23 04:38 205/132 H 12/22/22 04:30 78 18 98 12/22/22 04:23 78 22 99 12/22/22 04:23 212/97 H 12/22/22 04:15 67 10 L 98 12/22/22 04:08 221/95 H 12/22/22 04:08 80 15 99 12/22/22 04:00 80 24 99 12/22/22 03:55 82 25 H 96 12/22/22 03:55 223/105 H 12/22/22 03:45 79 22 100 12/22/22 03:30 70 10 L 98 12/22/22 03:15 65 12 99 12/22/22 03:38 73 22 99 12/22/22 03:38 165/143 H 12/22/22 03:23 68 11 L 98 12/22/22 03:23 190/86 H 12/22/22 03:08 73 17 99 12/22/22 03:08 220/119 H 12/22/22 03:00 76 20 99 12/22/22 02:53 74 19 99 12/22/22 02:53 205/92 H 12/22/22 02:38 70 23 97 12/22/22 02:38 224/103 H 12/22/22 02:38 224/103 H 12/22/22 02:23 181/101 H 12/22/22 02:23 68 16 99 12/22/22 02:08 62 14 99 12/22/22 02:08 165/82 H 12/22/22 02:00 63 10 L 98 12/22/22 01:53 68 15 99 12/22/22 01:53 182/81 H 12/22/22 01:45 75 17 98 12/22/22 01:38 89 26 H 12/22/22 01:38 229/116 H 12/22/22 01:30 79 23 98 12/22/22 01:23 226/112 H 12/22/22 01:23 81 19 99 12/22/22 01:15 80 20 99 12/22/22 01:08 78 20 99 12/22/22 01:08 224/109 H 12/22/22 01:00 73 22 99 12/22/22 00:53 79 22 99 12/22/22 00:53 225/113 H 12/22/22 00:45 80 22 99 12/22/22 00:38 226/113 H 12/22/22 00:38 76 14 99 12/22/22 00:30 77 18 99 12/22/22 00:23 216/110 H 12/22/22 00:23 79 23 100 12/22/22 00:30 36.6 C 69 20 229/116 H 99 12/22/22 00:15 79 19 100 12/22/22 00:08 75 24 100 12/22/22 00:08 221/115 H 12/22/22 00:00 78 21 99 12/21/22 23:53 222/101 H 12/21/22 23:53 76 23 100 12/21/22 23:45 74 22 99 12/21/22 23:42 213/106 H 12/21/22 23:42 73 19 99 12/21/22 23:30 74 22 99 12/21/22 23:24 180/102 H 12/21/22 23:24 74 23 99 12/21/22 23:15 72 22 100 12/21/22 23:08 70 12 99 12/21/22 23:08 195/89 H 12/21/22 23:00 76 31 H 99 12/21/22 22:53 76 20 99 12/21/22 22:53 186/123 H 12/21/22 22:45 75 19 100 12/21/22 22:38 164/92 H 12/21/22 22:38 79 14 100 12/21/22 22:30 72 19 100 12/21/22 22:23 171/85 H 12/21/22 22:23 66 10 L 100 12/21/22 23:54 36.6 C 77 18 222/101 H 100 12/21/22 23:43 36.6 C 73 20 213/106 H 100 12/21/22 23:38 36.6 C 77 20 190/100 H 100 12/21/22 23:36 36.6 C 73 20 180/102 H 100 12/21/22 23:16 36.6 C 72 20 195/89 H 100 12/21/22 22:54 36.6 C 71 20 183/123 H 100 12/21/22 22:24 36.6 C 77 20 171/85 H 100 12/21/22 22:15 69 14 99 12/21/22 22:08 73 20 99 12/21/22 22:08 173/82 H 12/21/22 22:00 100 12/21/22 21:53 82 20 98 12/21/22 21:53 198/89 H 12/21/22 21:45 79 19 99 12/21/22 21:15 76 19 98 12/21/22 22:09 36.6 C 67 20 173/82 H 98 12/21/22 21:51 36.2 C L 82 26 H 198/89 H 99 12/21/22 21:30 86 28 H 99 12/21/22 21:18 183/93 H 12/21/22 21:18 79 28 H 99 O2 Del Method 12/22/22 08:23 12/22/22 08:23 12/22/22 08:15 12/22/22 08:08 12/22/22 08:08 12/22/22 08:00 12/22/22 07:53 12/22/22 07:53 12/22/22 07:45 12/22/22 07:38 12/22/22 07:38 12/22/22 07:30 12/22/22 07:23 12/22/22 07:23 12/22/22 07:15 12/22/22 07:08 12/22/22 07:08 12/22/22 07:00 12/22/22 06:53 12/22/22 06:53 12/22/22 06:45 12/22/22 07:00 Room Air 12/22/22 06:00 12/22/22 05:53 12/22/22 05:53 12/22/22 05:45 12/22/22 05:38 12/22/22 05:38 12/22/22 05:30 12/22/22 05:23 12/22/22 05:23 12/22/22 05:15 12/22/22 05:08 12/22/22 05:08 12/22/22 05:00 12/22/22 04:53 12/22/22 04:53 12/22/22 04:45 12/22/22 04:38 12/22/22 04:38 12/22/22 04:30 12/22/22 04:23 12/22/22 04:23 12/22/22 04:15 12/22/22 04:08 12/22/22 04:08 12/22/22 04:00 12/22/22 03:55 12/22/22 03:55 12/22/22 03:45 12/22/22 03:30 12/22/22 03:15 12/22/22 03:38 12/22/22 03:38 12/22/22 03:23 12/22/22 03:23 12/22/22 03:08 12/22/22 03:08 12/22/22 03:00 12/22/22 02:53 12/22/22 02:53 12/22/22 02:38 12/22/22 02:38 12/22/22 02:38 12/22/22 02:23 12/22/22 02:23 12/22/22 02:08 12/22/22 02:08 12/22/22 02:00 12/22/22 01:53 12/22/22 01:53 12/22/22 01:45 12/22/22 01:38 12/22/22 01:38 12/22/22 01:30 12/22/22 01:23 12/22/22 01:23 12/22/22 01:15 12/22/22 01:08 12/22/22 01:08 12/22/22 01:00 12/22/22 00:53 12/22/22 00:53 12/22/22 00:45 12/22/22 00:38 12/22/22 00:38 12/22/22 00:30 12/22/22 00:23 12/22/22 00:23 12/22/22 00:30 12/22/22 00:15 12/22/22 00:08 12/22/22 00:08 12/22/22 00:00 12/21/22 23:53 12/21/22 23:53 12/21/22 23:45 12/21/22 23:42 12/21/22 23:42 12/21/22 23:30 12/21/22 23:24 12/21/22 23:24 12/21/22 23:15 12/21/22 23:08 12/21/22 23:08 12/21/22 23:00 12/21/22 22:53 12/21/22 22:53 12/21/22 22:45 12/21/22 22:38 12/21/22 22:38 12/21/22 22:30 12/21/22 22:23 12/21/22 22:23 12/21/22 23:54 12/21/22 23:43 12/21/22 23:38 12/21/22 23:36 12/21/22 23:16 12/21/22 22:54 12/21/22 22:24 12/21/22 22:15 12/21/22 22:08 12/21/22 22:08 12/21/22 22:00 12/21/22 21:53 12/21/22 21:53 12/21/22 21:45 12/21/22 21:15 12/21/22 22:09 12/21/22 21:51 12/21/22 21:30 12/21/22 21:18 12/21/22 21:18 Laboratory Results 12/22/22 12/22/22 12/21/22 Range/Units 04:01 04:01 Unknown WBC 10.23 (4.8-10.8) K/ul RBC 3.89 L (4.20-5.40) M/uL Hgb 9.4 L (12.0-16.0) g/dl Hct 27.5 L (37.0-47.0) % MCV 70.7 L (80.0-100.0) fL MCH 24.2 L (25.0-34.0) pg MCHC 34.2 (32.0-36.0) g/dL RDW Std Deviation 44.9 (36.4-46.3) fL RDW Coeff of Kaye 17.6 H (11.5-14.5) % Plt Count 356 (130-400) K/uL MPV 9.8 (9.4-12.4) fL Immature Gran % (Auto) 0.5 % Neut % (Auto) 82.8 % Lymph % (Auto) 10.0 % [place] % (Auto) 6.6 % Eos % (Auto) 0.0 % Baso % (Auto) 0.1 % Neut # (Auto) 8.47 H (1.40-6.50) K/uL Lymph # (Auto) 1.02 L (1.2-3.4) K/uL [place] # (Auto) 0.68 H (0.11-0.59) K/uL Eos # (Auto) 0.00 (0-0.50) K/uL Baso # (Auto) 0.01 (0-0.2) K/uL Immature Gran # (Auto) 0.05 (0.01-0.20) K/uL Polychromasia Sodium 127 L (136-145) mmol/L Potassium 3.7 (3.5-5.1) mmol/L Chloride 97 L (98-107) mmol/L Carbon Dioxide 20 L (21-32) mmol/L Anion Gap 10 (3-11) BUN 9 (6-23) mg/dl Creatinine 0.37 L (0.6-1.2) mg/dl Est Cr Clr Drug Dosing 99.0 ml/min Est GFR ( Amer) 114.5 ml/min Est GFR (Non-Af Amer) 98.8 ml/min BUN/Creatinine Ratio 24.3 H (10-20) Glucose 171 H (70-99(Fasting)) mg/dl POC Glucose (70-99) mg/dl Estimat Average Glucose mg/dl Hemoglobin A1c (4.5-5.6) % Calcium 8.9 (8.6-10.3) mg/dl Phosphorus 2.7 (2.5-4.9) mg/dl Magnesium 1.8 (1.7-2.4) mg/dl Urine Osmolality 413 L (500-800) mOsm/kg Ur Random Sodium mmol/L Blood Type Antibody Screen Crossmatch 12/21/22 12/21/22 12/21/22 Range/Units Unknown 19:57 19:30 WBC (4.8-10.8) K/ul RBC (4.20-5.40) M/uL Hgb (12.0-16.0) g/dl Hct (37.0-47.0) % MCV (80.0-100.0) fL MCH (25.0-34.0) pg MCHC (32.0-36.0) g/dL RDW Std Deviation (36.4-46.3) fL RDW Coeff of Kaye (11.5-14.5) % Plt Count (130-400) K/uL MPV (9.4-12.4) fL Immature Gran % (Auto) % Neut % (Auto) % Lymph % (Auto) % [place] % (Auto) % Eos % (Auto) % Baso % (Auto) % Neut # (Auto) (1.40-6.50) K/uL Lymph # (Auto) (1.2-3.4) K/uL [place] # (Auto) (0.11-0.59) K/uL Eos # (Auto) (0-0.50) K/uL Baso # (Auto) (0-0.2) K/uL Immature Gran # (Auto) (0.01-0.20) K/uL Polychromasia Sodium 129 L (136-145) mmol/L Potassium 4.3 D (3.5-5.1) mmol/L Chloride 103 (98-107) mmol/L Carbon Dioxide 22 (21-32) mmol/L Anion Gap 4 (3-11) BUN 12 (6-23) mg/dl Creatinine 0.47 L (0.6-1.2) mg/dl Est Cr Clr Drug Dosing 77.9 ml/min Est GFR ( Amer) 105.9 ml/min Est GFR (Non-Af Amer) 91.3 ml/min BUN/Creatinine Ratio 25.5 H (10-20) Glucose 113 H (70-99(Fasting)) mg/dl POC Glucose 144 H (70-99) mg/dl Estimat Average Glucose mg/dl Hemoglobin A1c (4.5-5.6) % Calcium 8.6 (8.6-10.3) mg/dl Phosphorus (2.5-4.9) mg/dl Magnesium 2.0 (1.7-2.4) mg/dl Urine Osmolality (500-800) mOsm/kg Ur Random Sodium 143 mmol/L Blood Type Antibody Screen Crossmatch 12/21/22 12/21/22 12/21/22 Range/Units 19:30 19:15 16:26 WBC 4.58 L (4.8-10.8) K/ul RBC 3.17 L (4.20-5.40) M/uL Hgb 7.4 L (12.0-16.0) g/dl Hct 22.4 L (37.0-47.0) % MCV 70.7 L (80.0-100.0) fL MCH 23.3 L (25.0-34.0) pg MCHC 33.0 (32.0-36.0) g/dL RDW Std Deviation 43.1 (36.4-46.3) fL RDW Coeff of Kaye 17.0 H (11.5-14.5) % Plt Count 375 (130-400) K/uL MPV 10.3 (9.4-12.4) fL Immature Gran % (Auto) 0.2 % Neut % (Auto) 60.0 % Lymph % (Auto) 26.6 % [place] % (Auto) 12.4 % Eos % (Auto) 0.4 % Baso % (Auto) 0.4 % Neut # (Auto) 2.74 (1.40-6.50) K/uL Lymph # (Auto) 1.22 (1.2-3.4) K/uL [place] # (Auto) 0.57 (0.11-0.59) K/uL Eos # (Auto) 0.02 (0-0.50) K/uL Baso # (Auto) 0.02 (0-0.2) K/uL Immature Gran # (Auto) 0.01 (0.01-0.20) K/uL Polychromasia 1+ Sodium (136-145) mmol/L Potassium (3.5-5.1) mmol/L Chloride (98-107) mmol/L Carbon Dioxide (21-32) mmol/L Anion Gap (3-11) BUN (6-23) mg/dl Creatinine (0.6-1.2) mg/dl Est Cr Clr Drug Dosing ml/min Est GFR ( Amer) ml/min Est GFR (Non-Af Amer) ml/min BUN/Creatinine Ratio (10-20) Glucose (70-99(Fasting)) mg/dl POC Glucose 115 H (70-99) mg/dl Estimat Average Glucose mg/dl Hemoglobin A1c (4.5-5.6) % Calcium (8.6-10.3) mg/dl Phosphorus (2.5-4.9) mg/dl Magnesium (1.7-2.4) mg/dl Urine Osmolality (500-800) mOsm/kg Ur Random Sodium mmol/L Blood Type A Positive Antibody Screen NEGATIVE Crossmatch See Detail 12/21/22 12/21/22 Range/Units 13:04 05:30 WBC (4.8-10.8) K/ul RBC (4.20-5.40) M/uL Hgb (12.0-16.0) g/dl Hct (37.0-47.0) % MCV (80.0-100.0) fL MCH (25.0-34.0) pg MCHC (32.0-36.0) g/dL RDW Std Deviation (36.4-46.3) fL RDW Coeff of Kaye (11.5-14.5) % Plt Count (130-400) K/uL MPV (9.4-12.4) fL Immature Gran % (Auto) % Neut % (Auto) % Lymph % (Auto) % [place] % (Auto) % Eos % (Auto) % Baso % (Auto) % Neut # (Auto) (1.40-6.50) K/uL Lymph # (Auto) (1.2-3.4) K/uL [place] # (Auto) (0.11-0.59) K/uL Eos # (Auto) (0-0.50) K/uL Baso # (Auto) (0-0.2) K/uL Immature Gran # (Auto) (0.01-0.20) K/uL Polychromasia Sodium 131 L (136-145) mmol/L Potassium 3.3 L (3.5-5.1) mmol/L Chloride 102 (98-107) mmol/L Carbon Dioxide 23 (21-32) mmol/L Anion Gap 6 (3-11) BUN 8 (6-23) mg/dl Creatinine 0.35 L (0.6-1.2) mg/dl Est Cr Clr Drug Dosing 104.6 ml/min Est GFR ( Amer) 116.6 ml/min Est GFR (Non-Af Amer) 100.6 ml/min BUN/Creatinine Ratio 22.9 H (10-20) Glucose 106 H (70-99(Fasting)) mg/dl POC Glucose (70-99) mg/dl Estimat Average Glucose 105 mg/dl Hemoglobin A1c 5.3 (4.5-5.6) % Calcium 8.7 (8.6-10.3) mg/dl Phosphorus (2.5-4.9) mg/dl Magnesium (1.7-2.4) mg/dl Urine Osmolality (500-800) mOsm/kg Ur Random Sodium mmol/L Blood Type Antibody Screen Crossmatch Medications Administered Current Inpatient Medications Acetaminophen (Acetaminophen 325 Mg Tab) 650 mg PO Q4H PRN PRN Reason: Pain or Fever Stop: 01/20/23 01:47 Ascorbic Acid (Ascorbic Acid 500 Mg Tab) 500 mg PO DAILY [facility] Stop: 01/20/23 08:59 Last Admin: 12/21/22 09:13 Dose: 500 mg Aspirin (Aspirin 81 Mg Ectab) 81 mg PO DAILY [facility] Stop: 01/20/23 08:59 Last Admin: 12/21/22 09:13 Dose: 81 mg Carvedilol (Carvedilol 6.25 Mg Tab) 6.25 mg PO BID [facility] Stop: 01/20/23 08:59 Last Admin: 12/21/22 19:50 Dose: 6.25 mg Carvedilol (Carvedilol 3.125 Mg Tab) 3.125 mg PO BIDM [facility] Stop: 01/21/23 07:59 Clopidogrel Bisulfate (Clopidogrel Bisulfate 75 Mg Tab) 75 mg PO QAM [facility] Stop: 01/21/23 08:59 Pantoprazole Sodium 40 mg/ (Syringe) 10 mls @ 5 mls/min IV BID [facility] Stop: 01/20/23 20:59 Last Admin: 12/22/22 08:00 Dose: 5 mls/min Nicardipine HCl 25 mg/ Sodium (Chloride) 250 mls @ 50 mls/hr IV .Q5H [facility]; Protocol Stop: 01/21/23 08:29 Labetalol HCl (Labetalol Hcl Iv 5 Mg/Ml 20ml) 10 mg IV Q6H PRN PRN Reason: Hypertension BP over 200/110 Stop: 01/20/23 07:06 Last Admin: 12/22/22 08:01 Dose: 10 mg Lisinopril (Lisinop[facility] 20 Mg Tab) [facility] [place] Stop: 01/22/23 08:59 Miscellaneous Information (Pharmacist Discharge Med Rec Consult) 1 each N/A UD PRN PRN Reason: Consult Stop: 01/20/23 01:47 Multivitamins (Multivitamin Tab) 1 tab PO DAILY [facility] Stop: 01/20/23 08:59 Last Admin: 12/21/22 09:13 Dose: 1 tab Nitroglycerin (Nitroglycerin Sl 0.4 Mg/Tab Tab) 0.4 mg SL UD PRN PRN Reason: Chest Pain Stop: 01/20/23 01:47 Polyethylene Glycol (Polyethylene (Miralax) 17 Gm Pack) 17 gm PO DAILY PRN PRN Reason: Constipation Stop: 01/20/23 01:47 Rosuvastatin Calcium (Rosuvastatin Calcium 20 Mg Tab) 20 mg PO QAM [facility] Stop: 01/20/23 08:59 Last Admin: 12/21/22 09:13 Dose: 20 mg Sodium Chloride (Sodium Chloride 1 Gm Tablet) 1 gm PO BID [facility] Stop: 01/21/23 08:59 Travoprost (Travoprost Z 0.004% Oph Soln 2.5 Ml Btl) 1 drops OPB DAILY [facility] Stop: 01/20/23 08:59 Last Admin: 12/21/22 09:14 Dose: 1 drops Vitamin D (Cholecalciferol 400 Units 10 Mcg Tab) 400 units PO DAILY [facility] Stop: 01/20/23 08:59 Last Admin: 12/21/22 09:13 Dose: 400 units
[2022-12-22] MEDS: TRAVOPROST Z 0.004% OPH SOLN 2.5 ML BTL OPB SCH (10:14)
[2022-12-22] MEDS: MULTIVITAMIN TAB PO SCH (10:14)
[2022-12-22] MEDS: ASCORBIC ACID 500 MG TAB PO SCH (10:14)
[2022-12-22] MEDS: CHOLECALCIFEROL 400 UNITS 10 MCG TAB PO SCH (10:14)
[2022-12-22] MEDS: ROSUVASTATIN CALCIUM 20 MG TAB PO SCH (10:14)
[2022-12-22] MEDS ORDERED: MANNITOL IV STA (10:22)
[2022-12-22] MEDS ORDERED: 1.2 MICRON FILTER 1 EACH IV ONE (10:22)
[2022-12-22 10:25] LABS: Basophils # (auto) 0.02 K/uL (0-0.2); Basophils % (auto) 0.2 %; Hematocrit (blood only) 23.9 % (37.0-47.0); Hemoglobin 8.2 g/dl (12.0-16.0); Immature Granulocytes # (auto) 0.08 K/uL (0.01-0.20); Immature Granulocytes % (auto) 0.6 %; Lymphocytes # (auto) 0.92 K/uL (1.2-3.4); Lymphocytes % (auto) 6.9 %; Mean Corpuscular Hemoglobin 24.2 pg (25.0-34.0); Mean Corpuscular Hgb Conc 34.3 g/dL (32.0-36.0); Mean Corpuscular Volume 70.5 fL (80.0-100.0); Mean Platelet Volume 9.8 fL (9.4-12.4); Monocytes # (auto) 1.02 K/uL (0.11-0.59); Monocytes % (auto) 7.7 %; Neutrophils # (auto) 11.24 K/uL (1.40-6.50); Neutrophils % (auto) 84.6 %; Nucleated RBC # (auto) 0.02 K/uL (0-0.12); Nucleated RBC % (auto) 0.2 %; Platelet Count 327 K/uL (130-400); RDW Standard Deviation 43.7 fL (36.4-46.3); Red Blood Count 3.39 M/uL (4.20-5.40); White Blood Count 13.28 K/ul (4.8-10.8)
[2022-12-22] MEDS ORDERED: NOREPINEPHRINE/D5W 4 MG/250 ML IV ONE (10:25)
[2022-12-22 10:27] LABS: HCO3 ABG 15 mmol/L (19-24); Oxygen Saturation ABG 99.7 % (90-95); PCO2 ABG 18 mmHg (35-46); PO2 ABG 95 mmHg (80-95)
--- NOTE | 2022-12-22 10:27 | CT Scan Report ---
HEAD CT NONCONTRAST CT DOSE: 810.83 mGy.cm HISTORY: worsening mental status TECHNIQUE: Multiaxial CT images of the head were performed without the use of intravenous contrast. A utomated exposure control was utilized for this study. A dose lowering technique was utilized adheri ng to the principles of ALARA. Comparison: Brain MRI 12/21/2022. Head CT 12/21/2022. Findings: The paranasal sinuses and mastoid air cells are clear. Interval development of a large hypo dense area involving the right frontotemporal junction and right posterior temporal lobe consistent w ith an acute right MCA territory infarct. There is an additional hypodense area within the right supe rior frontal gyrus consistent with an acute right ACT returned infarct. No evidence for hemorrhagic t ransformation. No intracranial hemorrhage or significant midline shift. There is mild mass effect umang ng the right lateral ventricle. Impression: There is now a large right MCA territory infarct which has significantly progressed in the interval a s well as a new right DORCAS territory infarct. No acute intracranial hemorrhage identified at this time . ACT 112: Negative or not required by law. Electronically signed by: Zander Glez M.D. 12/22/2022 10:26 AM
[2022-12-22] MEDS ORDERED: RAPID SEQUENCE INDUCTION BAG ONE (10:29)
[2022-12-22 10:30] LABS: Allen Test Pos (Pos)
[2022-12-22 10:32] LABS: pH ABG 7.53 (7.35-7.45)
[2022-12-22 10:37] LABS: BUN Creatinine Ratio 28.6 (10-20); Calcium 8.5 mg/dl (8.6-10.3); Creatinine Clr Calc Pharmacy 98.6 ml/min; Est GFR (African American) 116.6 ml/min; Est GFR (Non-African American) 100.6 ml/min; Potassium 3.2 mmol/L (3.5-5.1)
--- NOTE | 2022-12-22 11:29 | Procedure Note ---
Procedure Note Date of Service December 22, 2022 Note INTUBATION PROCEDURE NOTE: Dr. Juan José Robbins A time-out was completed verifying correct patient, procedure, site, positioning. Patient was evaluated and required intubation for acute encephalopathy and airway protection. Sedative agent used: 25 mg etomidate Paralysis agent used: 50 mg of rocuronium Emergent consent was implied given patients rapidly declining clinical status and need for airway protection. Number of attempts: 1 The patient was prepared in the appropriate fashion. Sedation was achieved utilizing etomidate and rocuronium. The patient was easily ventilated using [id number] to achieve adequate oxygenation. A 7.5 Romanian endotracheal tube was placed under glide scope guided to 22 cm at the lip. The stylette was removed and balloon was inflated with 10mL of air. Appropriate Colorimetric change was appreciated. Bilateral breath sounds were heard without air sounds in the abdomen. Post Intubation Chest X-ray ordered. Coding CPT Codes Resuscitation - Resuscitation: 09295 Endotracheal Intubation, emergency ([id number]) [facility] [place]odes [place]Charges) Resuscitation Resuscitation: 98755 Endotracheal Intubation, emergency
--- NOTE | 2022-12-22 11:30 | Billing Data ---
Date of Service December 22, 2022 Coding Level of Care Code 78357 CRITICAL CARE 1ST 30-74M Time Spent (min) 72
[2022-12-22] MEDS ORDERED: ONDANSETRON INJ 2 MG/ML 2 ML VIAL IV PRN (11:35)
[2022-12-22] MEDS ORDERED: HYDROmorphone INJ 0.5 MG/0.5 ML SYR IV PRN (11:35)
[2022-12-22] MEDS ORDERED: LORazepam 0.5 MG TAB PO PRN ×2 (11:35→12:54)
[2022-12-22] MEDS ORDERED: LORazepam 2 MG/1 ML VIAL IV PRN ×2 (11:35→12:54)
[2022-12-22] MEDS ORDERED: ONDANSETRON 4 MG OD TAB SL PRN (11:35)
--- NOTE | 2022-12-22 11:50 | XRay Report ---
XR chest 1V portable HISTORY: s/p intubation COMPARISON: None. FINDINGS: The endotracheal tube terminates approximately 4.7 cm from the jo ann. No pneumothorax. No pleural effusions. The lungs are hyperexpanded with apical predominant emphysematous changes. The hea rt is normal in size. There is a mildly tortuous thoracic aorta. No evidence for pulmonary edema. IMPRESSION: 1. The endotracheal tube terminates 4.7 cm from the jo ann. 2. No pneumothorax. 3. Emphysema. ACT 112: Negative or not required by law. Electronically signed by: Zander Glez M.D. 12/22/2022 11:49 AM
[2022-12-22] MEDS ORDERED: MoRPHine SULFATE 4 MG/ML 1 ML CARP\\VIAL IV STA (12:08)
[2022-12-22] MEDS ORDERED: MoRPHine SULFATE 4 MG/ML 1 ML CARP\\VIAL ONE (12:09)
[2022-12-22] MEDS: carvediloL 6.25 MG TAB PO SCH (12:26)
[2022-12-22] MEDS ORDERED: GLYCOPYRROLATE 0.2 MG/ML VIAL IV PRN (12:54)
[2022-12-22] MEDS ORDERED: ATROPINE SULFATE 1% OP SOLN 5 ML BTL SL PRN (12:54)
[2022-12-22] MEDS ORDERED: HYOSCYAMINE SULFATE 0.125 MG TAB SL PRN (12:54)
[2022-12-22] MEDS ORDERED: LORazepam 2 MG/1 ML VIAL IV SCH (13:00)
--- NOTE | 2022-12-22 13:34 | Gastrointestinal Consultation ---
Date of Consultation December 22, 2022 Assessment & Plan (1) Hematochezia: Plan Due to CAD and pt's new designation of comfort care only, would defer endoscopy. GI will sign off. Please recall if needed. Supervising Physician Co-Signing Physician Notes I performed a history and physical examination of the patient today, including specifically on physical exam - soft abdomen. I have discussed the patient's management with the advanced practitioner. Please refer to the nurse practitioner's note for the documented findings and plan of care. GI consulted initially for rectal bleeding however the patient is now on comfort care measured. Recall GI if needed. History of Present Illness Reason for Consultation: hematochezia Requesting Physician: HARRISON Garsia Attending Physician: Jared Grijalva MD History of Present Illness Ms. Jory De La Rosa is an 82 yr old female pt of Dr. Cristian Gomez w a hx of MGUS, post polio syndrome, breast Ca, increased ETOH intake, smoking, and other as below who was brought to the ED yesterday for CVA symptoms. While receiving anti thrombotic tx, began w rectal bleeding, passing several large red BMs. This morning, small red BM - seeming that the bleeding has slowed. Hb 7.4 + 1 unti ->9.4 this morning. BUN 9. Reviewed recent notes (since the consult was ordered and pt was seen) and since then, pt has suffered significant CVA and the family has changed care to comfort measures only. Allergies Allergy/AdvReac Type Severity Reaction Status Date / Time capsaicin [Diclopak] Allergy Unknown swelled, Unverified 12/20/22 21:41 itchy diclofenac [Diclopak] Allergy Unknown swelled, Unverified 12/20/22 21:41 itchy exemestane AdvReac Severe severe Unverified 12/20/22 21:41 diarrhea tamoxifen AdvReac Severe severe abd Unverified 12/20/22 21:41 pain Home Medications Medication Instructions Recorded Confirmed Type ascorbic acid (vitamin C) 500 mg 500 mg PO DAILY 12/20/22 12/20/22 History tablet (Vitamin C) carvedilol 3.125 mg tablet 6.25 mg PO BID 12/20/22 12/20/22 History cholecalciferol (vitamin D3) 10 10 mcg PO DAILY 12/20/22 12/20/22 History mcg (400 unit) tablet (Vitamin D3) lisinopril 20 mg tablet 20 mg PO AMHS 12/20/22 12/20/22 History multivitamin 1 tab PO DAILY 12/20/22 12/20/22 History omega 6-boo-ssi-fish oil 1,000 mg 1 cap PO DAILY 12/20/22 12/20/22 History (120 mg-180 mg) capsule (Fish Oil) omeprazole 20 mg tablet,delayed 20 mg PO DAILYBB 12/20/22 12/20/22 History release travoprost 0.004 % eye drops 1 drp OPB DAILY 12/20/22 12/20/22 History Patient History Medical History Dysmetria Hyponatremia Word finding difficulty Social History Smoking Status: Current every day smoker Cigarettes Per Day: 8; Do You Dip or Chew Tobacco: No; Hx Alcohol Use: Yes Alcohol type: wine Hx Substance Use: No Preferred Language: Turkish Communication Ability: Unable First Dyer Required: No Beliefs That Will Affect Care: None Current Living Situation: Spouse and Family Other Information That Helps Us Care for You: No Feels Safe at Home: Yes Safety Concerns: Feels Safe At This Time Assistive Devices: Scooter/Electric Scooter, Walker and Wheelchair Review of Systems Review of Systems: Unable to obtain ROS from the pt. Minimally responsive. Physical Exam Constitutional: + ill appearing, + frail appearing and + underweight Respiratory: normal respiratory effort, lungs clear to auscultation Cardiovascular: RRR, no murmur, no edema Neurologic: nonverbal Lymphatic: no cervical or axillary lymphadenopathy Results & Data Vital Signs (Past 12 Hours) Vital Signs Temp Pulse Pulse Resp BP BP Pulse Ox 12/22/22 12:40 69 21 100 12/22/22 12:30 70 20 100 12/22/22 12:20 76 20 100 12/22/22 12:12 80 21 100 12/22/22 12:12 82/50 L 12/22/22 12:10 74 20 100 12/22/22 12:06 79 21 100 12/22/22 12:06 79/53 L 12/22/22 12:01 74 19 100 12/22/22 12:01 79/56 L 12/22/22 12:00 74 19 100 12/22/22 11:56 74 19 100 12/22/22 11:56 99/56 L 12/22/22 11:51 77 19 100 12/22/22 11:51 102/60 12/22/22 11:51 102/60 12/22/22 11:50 75 19 100 12/22/22 11:47 64/50 L 12/22/22 11:47 79 19 100 12/22/22 11:46 65/48 L 12/22/22 11:46 85 19 100 12/22/22 11:45 63/45 L 12/22/22 11:45 80 26 H 100 12/22/22 11:42 83 20 100 12/22/22 11:42 59/45 L 12/22/22 11:40 85 19 99 12/22/22 11:36 83 18 100 12/22/22 11:36 106/63 12/22/22 11:32 84 18 100 12/22/22 11:32 118/68 12/22/22 11:30 83 18 100 12/22/22 11:26 179/75 H 12/22/22 11:26 90 18 100 12/22/22 11:25 204/89 H 12/22/22 11:25 96 H 18 100 12/22/22 11:23 105 H 21 100 12/22/22 11:23 189/134 H 12/22/22 11:20 82 18 100 12/22/22 11:20 95/68 L 12/22/22 11:18 96/48 L 12/22/22 11:18 83 18 100 12/22/22 11:15 101/60 12/22/22 11:15 80 18 100 12/22/22 11:13 81 18 100 12/22/22 11:13 92/56 L 12/22/22 11:10 81 18 100 12/22/22 11:10 108/69 12/22/22 11:08 81 18 100 12/22/22 11:08 105/67 12/22/22 11:05 80 18 100 12/22/22 08:00 83 12/22/22 08:00 12/22/22 10:45 83 19 100 12/22/22 08:23 71 20 98 12/22/22 08:23 215/88 H 12/22/22 08:15 71 19 98 12/22/22 08:08 72 21 98 12/22/22 08:08 205/90 H 12/22/22 08:00 78 22 98 12/22/22 07:53 77 19 98 12/22/22 07:53 216/107 H 12/22/22 07:45 74 24 98 12/22/22 07:38 198/96 H 12/22/22 07:38 75 29 H 98 12/22/22 07:30 76 18 98 12/22/22 07:23 209/95 H 12/22/22 07:23 75 22 98 12/22/22 07:15 78 22 98 12/22/22 07:08 69 18 96 12/22/22 07:08 189/76 H 12/22/22 07:00 72 22 96 12/22/22 06:53 210/97 H 12/22/22 06:53 74 19 96 12/22/22 06:45 76 21 96 12/22/22 07:00 37.0 C 78 20 209/95 H 98 12/22/22 06:00 79 18 99 12/22/22 05:53 72 16 99 12/22/22 05:53 204/102 H 12/22/22 05:45 67 16 99 12/22/22 05:38 68 18 100 12/22/22 05:38 199/93 H 12/22/22 05:30 72 20 99 12/22/22 05:23 210/89 H 12/22/22 05:23 70 20 99 12/22/22 05:15 66 28 H 99 12/22/22 05:08 194/85 H 12/22/22 05:08 70 15 99 12/22/22 05:00 75 14 98 12/22/22 04:53 79 18 99 12/22/22 04:53 210/97 H 12/22/22 04:45 68 15 98 12/22/22 04:38 81 14 99 12/22/22 04:38 205/132 H 12/22/22 04:30 78 18 98 12/22/22 04:23 78 22 99 12/22/22 04:23 212/97 H 12/22/22 04:15 67 10 L 98 12/22/22 04:08 221/95 H 12/22/22 04:08 80 15 99 12/22/22 04:00 80 24 99 12/22/22 03:55 82 25 H 96 12/22/22 03:55 223/105 H 12/22/22 03:45 79 22 100 12/22/22 03:30 70 10 L 98 12/22/22 03:15 65 12 99 12/22/22 03:38 73 22 99 12/22/22 03:38 165/143 H 12/22/22 03:23 68 11 L 98 12/22/22 03:23 190/86 H 12/22/22 03:08 73 17 99 12/22/22 03:08 220/119 H 12/22/22 03:00 76 20 99 12/22/22 02:53 74 19 99 12/22/22 02:53 205/92 H 12/22/22 02:38 70 23 97 12/22/22 02:38 224/103 H 12/22/22 02:38 224/103 H 12/22/22 02:23 181/101 H 12/22/22 02:23 68 16 99 12/22/22 02:08 62 14 99 12/22/22 02:08 165/82 H 12/22/22 02:00 63 10 L 98 12/22/22 01:53 68 15 99 12/22/22 01:53 182/81 H 12/22/22 01:45 75 17 98 12/22/22 01:38 89 26 H 12/22/22 01:38 229/116 H 12/22/22 01:30 79 23 98 Pulse Ox O2 Del Method O2 Del Method FiO2 12/22/22 12:40 12/22/22 12:30 12/22/22 12:20 12/22/22 12:12 12/22/22 12:12 12/22/22 12:10 12/22/22 12:06 12/22/22 12:06 12/22/22 12:01 12/22/22 12:01 12/22/22 12:00 12/22/22 11:56 12/22/22 11:56 12/22/22 11:51 12/22/22 11:51 12/22/22 11:51 12/22/22 11:50 12/22/22 11:47 12/22/22 11:47 12/22/22 11:46 12/22/22 11:46 12/22/22 11:45 12/22/22 11:45 12/22/22 11:42 12/22/22 11:42 12/22/22 11:40 12/22/22 11:36 12/22/22 11:36 12/22/22 11:32 12/22/22 11:32 12/22/22 11:30 12/22/22 11:26 12/22/22 11:26 12/22/22 11:25 12/22/22 11:25 12/22/22 11:23 12/22/22 11:23 12/22/22 11:20 12/22/22 11:20 12/22/22 11:18 12/22/22 11:18 12/22/22 11:15 12/22/22 11:15 12/22/22 11:13 12/22/22 11:13 12/22/22 11:10 12/22/22 11:10 12/22/22 11:08 12/22/22 11:08 12/22/22 11:05 12/22/22 08:00 12/22/22 08:00 99 Room Air 12/22/22 10:45 30 12/22/22 08:23 12/22/22 08:23 12/22/22 08:15 12/22/22 08:08 12/22/22 08:08 12/22/22 08:00 12/22/22 07:53 12/22/22 07:53 12/22/22 07:45 12/22/22 07:38 12/22/22 07:38 12/22/22 07:30 12/22/22 07:23 12/22/22 07:23 12/22/22 07:15 12/22/22 07:08 12/22/22 07:08 12/22/22 07:00 12/22/22 06:53 12/22/22 06:53 12/22/22 06:45 12/22/22 07:00 Room Air 12/22/22 06:00 12/22/22 05:53 12/22/22 05:53 12/22/22 05:45 12/22/22 05:38 12/22/22 05:38 12/22/22 05:30 12/22/22 05:23 12/22/22 05:23 12/22/22 05:15 12/22/22 05:08 12/22/22 05:08 12/22/22 05:00 12/22/22 04:53 12/22/22 04:53 12/22/22 04:45 12/22/22 04:38 12/22/22 04:38 12/22/22 04:30 12/22/22 04:23 12/22/22 04:23 12/22/22 04:15 12/22/22 04:08 12/22/22 04:08 12/22/22 04:00 12/22/22 03:55 12/22/22 03:55 12/22/22 03:45 12/22/22 03:30 12/22/22 03:15 12/22/22 03:38 12/22/22 03:38 12/22/22 03:23 12/22/22 03:23 12/22/22 03:08 12/22/22 03:08 12/22/22 03:00 12/22/22 02:53 12/22/22 02:53 12/22/22 02:38 12/22/22 02:38 12/22/22 02:38 12/22/22 02:23 12/22/22 02:23 12/22/22 02:08 12/22/22 02:08 12/22/22 02:00 12/22/22 01:53 12/22/22 01:53 12/22/22 01:45 12/22/22 01:38 12/22/22 01:38 12/22/22 01:30 Laboratory Results ABC 10, Hb 9.4, Hct 27.5, Plts 356, PT 11, INR 1.1, Na 1237, K 37, Cl 97, CO2 20, BUN 9, Cr 0.3, glucose 144. Diagnostic Findings CTA 12/21/22: 1. There is a subacute/healing fracture within the greater trochanter of the proximal left femur. 2. Fluid-filled large and small bowel. This could represent a gastroenteritis or diarrhea illness. 3. No definite bowel wall thickening or obstruction. 4. Normal appendix. 5. There is a small amount of hyperdense material within the left vaginal cuff as described above. This could represent contrast in the setting of a fistula, possibly from the adjacent bladder. However, no definite fistula identified on this study. 6. There is a beaded appearance to the bilateral renal arteries consistent with fibromuscular dysplasia. This results in multifocal fusiform aneurysmal dilatation the bilateral renal arteries most pronounced on the right which m easures up to 12 mm. 7. Bilateral iliac artery stenosis, left greater than right, due to the extensive calcified plaque. 8. Additional findings as described above.
--- NOTE | 2022-12-22 14:14 | Electroencephalogram ---
EEG Procedure Note Date of Service December 22, 2022 Start / End Times Start Time: : End Time: : Referring Physician Jared Grijalva MD History CVA, AMS Home Medication List Medication Instructions Recorded Confirmed Type ascorbic acid (vitamin C) 500 mg 500 mg PO DAILY 12/20/22 12/20/22 History tablet (Vitamin C) carvedilol 3.125 mg tablet 6.25 mg PO BID 12/20/22 12/20/22 History cholecalciferol (vitamin D3) 10 10 mcg PO DAILY 12/20/22 12/20/22 History mcg (400 unit) tablet (Vitamin D3) lisinopril 20 mg tablet 20 mg PO AMHS 12/20/22 12/20/22 History multivitamin 1 tab PO DAILY 12/20/22 12/20/22 History omega 7-jgq-pjl-fish oil 1,000 mg 1 cap PO DAILY 12/20/22 12/20/22 History (120 mg-180 mg) capsule (Fish Oil) omeprazole 20 mg tablet,delayed 20 mg PO DAILYBB 12/20/22 12/20/22 History release travoprost 0.004 % eye drops 1 drp OPB DAILY 12/20/22 12/20/22 History Inpatient Medication List Ascorbic Acid (Ascorbic Acid 500 Mg Tab) 500 mg PO DAILY [facility] Stop: 01/20/23 08:59 Last Admin: 12/22/22 10:14 Dose: Not Given Documented By: Admin: 12/21/22 09:13 Dose: 500 mg Documented By: MTM Aspirin (Aspirin 81 Mg Ectab) 81 mg PO DAILY [facility] Stop: 01/20/23 08:59 Last Admin: 12/21/22 09:13 Dose: 81 mg Documented By: MTM Atropine Sulfate (Atropine Sulfate 1% Op Soln 5 Ml Btl) 4 drops SL Q1H PRN PRN Reason: Secretions or pulm congestion Stop: 01/21/23 12:53 Last Admin: 12/22/22 13:14 Dose: 4 drops Documented By: GPF Carvedilol (Carvedilol 3.125 Mg Tab) 3.125 mg PO BIDM RENATO Stop: 01/21/23 07:59 Last Admin: 12/22/22 10:13 Dose: Not Given Documented By: GPF Pantoprazole Sodium 40 mg/ (Syringe) 10 mls @ 5 mls/min IV BID RENATO Stop: 01/20/23 20:59 Last Admin: 12/22/22 08:00 Dose: 5 mls/min Documented By: Admin: 12/21/22 19:50 Dose: 5 mls/min Documented By: BRITTNI Nicardipine HCl 25 mg/ Sodium (Chloride) 250 mls @ 0 mls/hr IV .Q0M RENATO; Protocol Stop: 01/21/23 08:29 Last Titration: 12/22/22 09:50 Dose: 0 mg/hr, 0 mls/hr Documented By: Admin: 12/22/22 09:14 Dose: 5 mg/hr, 50 mls/hr Documented By: GPF Co-signed By: TARSHA Lorazepam (Lorazepam 2 Mg/1 Ml Vial) 0.5 mg IV Q8H RENATO Stop: 01/21/23 12:59 Last Admin: 12/22/22 13:09 Dose: 0.5 mg Documented By: GPF Multivitamins (Multivitamin Tab) 1 tab PO DAILY RNEATO Stop: 01/20/23 08:59 Last Admin: 12/22/22 10:14 Dose: Not Given Documented By: Admin: 12/21/22 09:13 Dose: 1 tab Documented By: MTM Rosuvastatin Calcium (Rosuvastatin Calcium 20 Mg Tab) 20 mg PO QAM RENATO Stop: 01/20/23 08:59 Last Admin: 12/22/22 10:14 Dose: Not Given Documented By: Admin: 12/21/22 09:13 Dose: 20 mg Documented By: MTM Sodium Chloride (Sodium Chloride 1 Gm Tablet) 1 gm PO BID RENATO Stop: 01/21/23 08:59 Last Admin: 12/22/22 10:14 Dose: Not Given Documented By: GPF Travoprost (Travoprost Z 0.004% Oph Soln 2.5 Ml Btl) 1 drops OPB DAILY [facility] Stop: 01/20/23 08:59 Last Admin: 12/22/22 10:14 Dose: Not Given Documented By: Admin: 12/21/22 09:14 Dose: 1 drops Documented By: MTM Vitamin D (Cholecalciferol 400 Units 10 Mcg Tab) 400 units PO DAILY RENATO Stop: 01/20/23 08:59 Last Admin: 12/22/22 10:14 Dose: Not Given Documented By: Admin: 12/21/22 09:13 Dose: 400 units Documented By: TIM Discontinued Medications Aspirin (Aspirin Chew 324 Mg) 324 mg PO NOW STA Stop: 12/20/22 22:41 Last Admin: 12/20/22 23:20 Dose: 324 mg Documented By: JERRELL Carvedilol (Carvedilol 6.25 Mg Tab) 6.25 mg PO BID RENATO Stop: 01/20/23 08:59 Last Admin: 12/22/22 12:26 Dose: Not Given Documented By: Admin: 12/21/22 19:50 Dose: 6.25 mg Documented By: Admin: 12/21/22 09:13 Dose: 6.25 mg Documented By: TIM Clopidogrel Bisulfate (Clopidogrel Bisulfate 300 Mg Tab) 300 mg PO NOW STA Stop: 12/21/22 12:20 Last Admin: 12/21/22 13:56 Dose: 300 mg Documented By: LOTUS Gadobutrol (Gadobutrol 65ml Vial) 5 ml IV ONCE ONE Stop: 12/21/22 03:20 Last Admin: 12/21/22 03:19 Dose: 5 ml Documented By: FLO Hydralazine HCl (Hydralazine Hcl 20 Mg/Ml Vial) 10 mg IV NOW STA Stop: 12/22/22 08:22 Last Admin: 12/22/22 08:36 Dose: 10 mg Documented By: LOTUS Magnesium Sulfate/Dextrose (Magnesium Sulfate / D5w) 1 gm in 100 mls @ 200 mls/hr IV Q30M RENATO Stop: 12/20/22 23:39 Last Infusion: 12/21/22 00:27 Dose: 0 mls/hr Documented By: Admin: 12/20/22 23:55 Dose: 200 mls/hr Documented By: Infusion: 12/20/22 23:54 Dose: 0 mls/hr Documented By: Admin: 12/20/22 23:23 Dose: 200 mls/hr Documented By: JERRELL Sodium Chloride (Nss 1000ml) 500 mls @ 999 mls/hr IV .Q31M ONE Stop: 12/21/22 00:19 Last Infusion: 12/21/22 00:57 Dose: 0 mls/hr Documented By: Admin: 12/21/22 00:26 Dose: 999 mls/hr Documented By: JERRELL Sodium Chloride (Nss 1000ml) 1,000 mls @ 80 mls/hr IV .[id number] RENATO Stop: 01/20/23 01:47 Last Infusion: 12/22/22 09:00 Dose: 0 mls/hr Documented By: Admin: 12/22/22 03:36 Dose: 80 mls/hr Documented By: Infusion: 12/22/22 02:26 Dose: 80 mls/hr Documented By: Admin: 12/21/22 13:56 Dose: 80 mls/hr Documented By: Infusion: 12/21/22 13:56 Dose: 0 mls/hr Documented By: Infusion: 12/21/22 09:55 Dose: 0 mls/hr Documented By: Admin: 12/21/22 04:06 Dose: 80 mls/hr Documented By: CEFERINO Thiamine HCl 200 mg/ Sodium (Chloride) 52 mls @ 210 mls/hr IV 0200 ONE Stop: 12/21/22 02:14 Last Infusion: 12/21/22 05:28 Dose: 0 mls/hr Documented By: Admin: 12/21/22 04:05 Dose: 210 mls/hr Documented By: CEFERINO Folic Acid 1 mg/ Syringe 10 mls @ 5 mls/min IV 0200 ONE Stop: 12/21/22 02:01 Last Admin: 12/21/22 04:07 Dose: 5 mls/min Documented By: CEFERINO Potassium Chloride (K Javi / Wtr) 10 meq in 100 mls @ 100 mls/hr IV Q1H RENATO Stop: 12/21/22 14:44 Last Infusion: 12/21/22 19:42 Dose: 0 mls/hr Documented By: Admin: 12/21/22 17:42 Dose: 50 mls/hr Documented By: Infusion: 12/21/22 16:07 Dose: 100 mls/hr Documented By: Admin: 12/21/22 15:07 Dose: 100 mls/hr Documented By: Infusion: 12/21/22 14:56 Dose: 100 mls/hr Documented By: Admin: 12/21/22 13:56 Dose: 100 mls/hr Documented By: GPF Sodium Chloride (Hypertonic Saline 3%) 100 mls @ 600 mls/hr IV .Q10M ONE; Protocol Stop: 12/22/22 08:30 Last Infusion: 12/22/22 09:49 Dose: 0 mls/hr Documented By: LOTUS Co-signed By: TARSHA Admin: 12/22/22 09:13 Dose: 600 mls/hr Documented By: LOTUS Co-signed By: TARSHA Mannitol (Mannitol 20%) 13 gm in 65 mls @ 260 mls/hr 0.25 gm/kg (13 gm) IV NOW STA Stop: 12/22/22 10:36 Last Infusion: 12/22/22 10:54 Dose: 0 mls/hr Documented By: Admin: 12/22/22 10:43 Dose: 260 mls/hr Documented By: LOTUS Ioversol (Optiray 320 500ml) 125 ml IV ONCE ONE Stop: 12/20/22 21:31 Last Admin: 12/20/22 21:30 Dose: 117 ml Documented By: STEPHANE Ioversol (Optiray 320 500ml) 113 ml IV ONCE ONE Stop: 12/21/22 10:08 Last Admin: 12/21/22 10:08 Dose: 113 ml Documented By: HAIR Ioversol (Optiray 320 500ml) 107 ml IV ONCE ONE Stop: 12/21/22 20:31 Last Admin: 12/21/22 20:31 Dose: 107 ml Documented By: OSMAR Labetalol HCl (Labetalol Hcl Iv 5 Mg/Ml 20ml) 10 mg IV Q6H PRN PRN Reason: Hypertension BP over 200/110 Stop: 01/20/23 07:06 Last Admin: 12/22/22 08:01 Dose: 10 mg Documented By: LOTUS Co-signed By: TARSHA Admin: 12/22/22 01:56 Dose: 10 mg Documented By: BRITTNI Co-signed By: OWEN Labetalol HCl (Labetalol Hcl Iv 5 Mg/Ml 20ml) 10 mg IV NOW STA Stop: 12/22/22 04:47 Last Admin: 12/22/22 04:58 Dose: 10 mg Documented By: BRITTNI Co-signed By: OWEN Lisinopril (Lisinopril 20 Mg Tab) 20 mg PO NOW STA Stop: 12/22/22 04:53 Last Admin: 12/22/22 05:01 Dose: 20 mg Documented By: TP Miscellaneous (Rapid Sequence Induction Bag) Confirm Administered Dose 1 each N/A .STK-MED ONE Stop: 12/22/22 10:30 Last Admin: 12/22/22 10:43 Dose: 1 each Documented By: GPF Morphine Sulfate (Morphine Sulfate 4 Mg/Ml 1 Ml Carp\Vial) 4 mg IV NOW STA Stop: 12/22/22 12:09 Last Admin: 12/22/22 12:25 Dose: Not Given Documented By: GPF Morphine Sulfate (Morphine Sulfate 4 Mg/Ml 1 Ml Carp\Vial) Confirm Administered Dose 4 mg .ROUTE .STK-MED ONE Stop: 12/22/22 12:10 Last Admin: 12/22/22 12:25 Dose: 4 mg Documented By: GPF Norepinephrine Bitartrate (Norepinephrine/D5w 4 Mg/250 Ml) Confirm Administered Dose 4 mg IV .STK-MED ONE Stop: 12/22/22 10:26 Last Admin: 12/22/22 10:43 Dose: 4 mg Documented By: GPF Pantoprazole Sodium (Pantoprazole 40 Mg Tab) 40 mg PO DAILYBB RENATO Stop: 01/20/23 06:29 Last Admin: 12/21/22 05:49 Dose: 40 mg Documented By: BCM Potassium Chloride (Potassium Chloride 20 Meq/15 Ml Udc) 40 meq PO NOW STA Stop: 12/22/22 05:23 Last Admin: 12/22/22 05:58 Dose: 40 meq Documented By: TP Rosuvastatin Calcium (Rosuvastatin Calcium 20 Mg Tab) 20 mg PO NOW STA Stop: 12/20/22 22:42 Last Admin: 12/20/22 23:19 Dose: 20 mg Documented By: JERRELL Description This is a 21 electrode EEG with a single channel dedicated to limited EKG. The electrodes were placed in accordance with the International 10-20 system. Interpretation During restful wakefulness, there is 9 Hz posterior activity on left hemisphere but no distinctive posterior rhythm on the right hemisphere. Background activity shows interhemispheric asymmetry. While, left cerebral background activity shows essentially normal rhythm, but right cerebral background activity shows 2 to 3 Hz, moderate delta, intermixed with 4 to 5 Hz, moderate amplitude theta waveforms. There is no sleep pattern captured. Photic stimulations slightly induced left sided posterior driving responses. Hyperventilation is not attempted. There are no electrographic seizures or epileptogenic discharges. Impression: This EEG, recorded in wakefulness only, is abnormal due to right cerebral slowing, consistent with structural pathology, involving the right side of brain, as seen in sizable cerebrovascular accidents. There is no electrographic seizure or epileptogenic discharge.
--- NOTE | 2022-12-22 15:05 | Hospitalist Progress Note ---
Date of Service December 22, 2022 Assessment & Plan Admission and Anticipated Discharge Date Admission Date: December 21, 2022 Subjective NOTE Notified that patient ceased to breathe at 14:36. Patient lying in bed, unresponsive to touch or voice. No breath sounds, no heart sounds, no carotid or radial pulses. Pupils fixed and dilated. MD Valentine Results & Data Results & Data Vital Signs (Past 12 Hours) Vital Signs Temp Pulse Pulse Resp BP BP Pulse Ox 12/22/22 14:00 85 19 100 12/22/22 13:56 85 18 99 12/22/22 13:30 87 23 100 12/22/22 13:26 85 24 100 12/22/22 13:00 79 22 100 12/22/22 12:55 68/52 L 12/22/22 12:55 79 22 100 12/22/22 12:40 69 21 100 12/22/22 12:30 70 20 100 12/22/22 12:20 76 20 100 12/22/22 12:12 80 21 100 12/22/22 12:12 82/50 L 12/22/22 12:10 74 20 100 12/22/22 12:06 79 21 100 12/22/22 12:06 79/53 L 12/22/22 12:01 74 19 100 12/22/22 12:01 79/56 L 12/22/22 12:00 74 19 100 12/22/22 11:56 74 19 100 12/22/22 11:56 99/56 L 12/22/22 11:51 77 19 100 12/22/22 11:51 102/60 12/22/22 11:51 102/60 12/22/22 11:50 75 19 100 12/22/22 11:47 64/50 L 12/22/22 11:47 79 19 100 12/22/22 11:46 65/48 L 12/22/22 11:46 85 19 100 12/22/22 11:45 63/45 L 12/22/22 11:45 80 26 H 100 12/22/22 11:42 83 20 100 12/22/22 11:42 59/45 L 12/22/22 11:40 85 19 99 12/22/22 11:36 83 18 100 12/22/22 11:36 106/63 12/22/22 11:32 84 18 100 12/22/22 11:32 118/68 12/22/22 11:30 83 18 100 12/22/22 11:26 179/75 H 12/22/22 11:26 90 18 100 12/22/22 11:25 204/89 H 12/22/22 11:25 96 H 18 100 12/22/22 11:23 105 H 21 100 12/22/22 11:23 189/134 H 12/22/22 11:20 82 18 100 12/22/22 11:20 95/68 L 12/22/22 11:18 96/48 L 12/22/22 11:18 83 18 100 12/22/22 11:15 101/60 12/22/22 11:15 80 18 100 12/22/22 11:13 81 18 100 12/22/22 11:13 92/56 L 12/22/22 11:10 81 18 100 12/22/22 11:10 108/69 12/22/22 11:08 81 18 100 12/22/22 11:08 105/67 12/22/22 11:05 80 18 100 12/22/22 08:00 83 12/22/22 08:00 12/22/22 10:45 83 19 100 12/22/22 08:23 71 20 98 12/22/22 08:23 215/88 H 12/22/22 08:15 71 19 98 12/22/22 08:08 72 21 98 12/22/22 08:08 205/90 H 12/22/22 08:00 78 22 98 12/22/22 07:53 77 19 98 12/22/22 07:53 216/107 H 12/22/22 07:45 74 24 98 12/22/22 07:38 198/96 H 12/22/22 07:38 75 29 H 98 12/22/22 07:30 76 18 98 12/22/22 07:23 209/95 H 12/22/22 07:23 75 22 98 12/22/22 07:15 78 22 98 12/22/22 07:08 69 18 96 12/22/22 07:08 189/76 H 12/22/22 07:00 72 22 96 12/22/22 06:53 210/97 H 12/22/22 06:53 74 19 96 12/22/22 06:45 76 21 96 12/22/22 07:00 37.0 C 78 20 209/95 H 98 12/22/22 06:00 79 18 99 12/22/22 05:53 72 16 99 12/22/22 05:53 204/102 H 12/22/22 05:45 67 16 99 12/22/22 05:38 68 18 100 12/22/22 05:38 199/93 H 12/22/22 05:30 72 20 99 12/22/22 05:23 210/89 H 12/22/22 05:23 70 20 99 12/22/22 05:15 66 28 H 99 12/22/22 05:08 194/85 H 12/22/22 05:08 70 15 99 12/22/22 05:00 75 14 98 12/22/22 04:53 79 18 99 12/22/22 04:53 210/97 H 12/22/22 04:45 68 15 98 12/22/22 04:38 81 14 99 12/22/22 04:38 205/132 H 12/22/22 04:30 78 18 98 12/22/22 04:23 78 22 99 12/22/22 04:23 212/97 H 12/22/22 04:15 67 10 L 98 12/22/22 04:08 221/95 H 12/22/22 04:08 80 15 99 12/22/22 04:00 80 24 99 12/22/22 03:55 82 25 H 96 12/22/22 03:55 223/105 H 12/22/22 03:45 79 22 100 12/22/22 03:30 70 10 L 98 12/22/22 03:15 65 12 99 12/22/22 03:38 73 22 99 12/22/22 03:38 165/143 H 12/22/22 03:23 68 11 L 98 12/22/22 03:23 190/86 H 12/22/22 03:08 73 17 99 12/22/22 03:08 220/119 H Pulse Ox O2 Del Method O2 Del Method FiO2 12/22/22 14:00 12/22/22 13:56 12/22/22 13:30 12/22/22 13:26 12/22/22 13:00 12/22/22 12:55 12/22/22 12:55 12/22/22 12:40 12/22/22 12:30 12/22/22 12:20 12/22/22 12:12 12/22/22 12:12 12/22/22 12:10 12/22/22 12:06 12/22/22 12:06 12/22/22 12:01 12/22/22 12:01 12/22/22 12:00 12/22/22 11:56 12/22/22 11:56 12/22/22 11:51 12/22/22 11:51 12/22/22 11:51 12/22/22 11:50 12/22/22 11:47 12/22/22 11:47 12/22/22 11:46 12/22/22 11:46 12/22/22 11:45 12/22/22 11:45 12/22/22 11:42 12/22/22 11:42 12/22/22 11:40 12/22/22 11:36 12/22/22 11:36 12/22/22 11:32 12/22/22 11:32 12/22/22 11:30 12/22/22 11:26 12/22/22 11:26 12/22/22 11:25 12/22/22 11:25 12/22/22 11:23 12/22/22 11:23 12/22/22 11:20 12/22/22 11:20 12/22/22 11:18 12/22/22 11:18 12/22/22 11:15 12/22/22 11:15 12/22/22 11:13 12/22/22 11:13 12/22/22 11:10 12/22/22 11:10 12/22/22 11:08 12/22/22 11:08 12/22/22 11:05 12/22/22 08:00 12/22/22 08:00 99 Room Air 12/22/22 10:45 30 12/22/22 08:23 12/22/22 08:23 12/22/22 08:15 12/22/22 08:08 12/22/22 08:08 12/22/22 08:00 12/22/22 07:53 12/22/22 07:53 12/22/22 07:45 12/22/22 07:38 12/22/22 07:38 12/22/22 07:30 12/22/22 07:23 12/22/22 07:23 12/22/22 07:15 12/22/22 07:08 12/22/22 07:08 12/22/22 07:00 12/22/22 06:53 12/22/22 06:53 12/22/22 06:45 12/22/22 07:00 Room Air 12/22/22 06:00 12/22/22 05:53 12/22/22 05:53 12/22/22 05:45 12/22/22 05:38 12/22/22 05:38 12/22/22 05:30 12/22/22 05:23 12/22/22 05:23 12/22/22 05:15 12/22/22 05:08 12/22/22 05:08 12/22/22 05:00 12/22/22 04:53 12/22/22 04:53 12/22/22 04:45 12/22/22 04:38 12/22/22 04:38 12/22/22 04:30 12/22/22 04:23 12/22/22 04:23 12/22/22 04:15 12/22/22 04:08 12/22/22 04:08 12/22/22 04:00 12/22/22 03:55 12/22/22 03:55 12/22/22 03:45 12/22/22 03:30 12/22/22 03:15 12/22/22 03:38 12/22/22 03:38 12/22/22 03:23 12/22/22 03:23 12/22/22 03:08 12/22/22 03:08
--- NOTE | 2022-12-22 15:08 | Discharge Summary ---
Date of Service December 22, 2022 Admission HPI Per Admitting Provider An 82-year-old female with past medical history significant for hypertension, thoracic aortic aneurysm, benign neoplasm of colon, generalized osteoarthrosis, history of iron deficiency anemia, history of monoclonal gammopathy of unknown significance, history of tobacco use disorder, history of post-polio syndrome, history of breast cancer, history of gastric ulcer. Comes from home because of weakness and stroke-like symptoms. The patient says around 4:00 p.m., she noticed left hand and arm were weak.She has chronic weakness in the lower extremities. Question of slurred speech She was brought in here. The sym ptoms, looks like as per the ER, there was also some slurred speech, but currently the patient's speech seems okay and the patient says her weakness in the left hand also is getting better. 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 She is able to lift her left upper extremity currently and as per the ER, she had a flaccid left upper extremity when she came in. When she came in Stroke alert was called. CT of the head with contrast okay. CTA of the head and neck shows right internal carotid artery is occluded from the cervical region through the petrous portion. There is a reconstitution in the cavernous segment of the internal carotid artery. The supraclinoid portion is patent, possibly from collateral flow. The right M1 segment and distal middle cerebral arteries are patent, although slightly diminutive in appearance when compared to the previous examination. No thrombus burden identified. [facility] thought that currently she is not a candidate for any intervention. She was loaded with aspirin and also statin and if anything changes to call them back. Currently, the patient is alert, awake, and oriented to name and place. Could tell her date of , could today tell the current month, but could not tell the year. She says her symptoms are getting better. Denies any headache, denies any blurred vision or double vision. No earache, no runny nose, no sore throat, no cough, no recent fevers, no nausea, no chest pain, no shortness of breath, no abdominal pain. She says she has normal bowel and bladder movements. Ambulates okay at home. Admission Exam Per Admitting Provider GENERAL: The patient is alert and awake, not in acute distress. VITAL SIGNS: Temperature 36.7, pulse 102, respiratory rate 17, blood pressure 118/78, oxygen 98% on room air. HEENT: Pupils equal, round, and reactive to light. Extraocular muscles intact. NECK: No JVD, no neck masses. CARDIOVASCULAR: S1 and S2 heard. Regular rate and rhythm. No murmur, no gallop. RESPIRATORY SYSTEM: Normal AP diameter. No accessory muscle use. No wheezing, no crackles. ABDOMEN: Soft, bowel sounds present, nontender, no distention. CENTRAL NERVOUS SYSTEM: Alert and oriented to name and place, could today tell the month, but could not tell the year. Speech is okay. No obvious facial droop seen. [employer] is weak in the left upper extremity and also strength is weak, 4/5 in the left upper extremity. Can lift the left upper extremity up, can lift both lower extremities up and hold for a few seconds. Difficult for coordination of movements, Left upper extremity drifting down Principal Diagnosis Acute CVA Discharge Exam Time of 14:36 12/22/2022 Discharge Data Allergies Allergy/AdvReac Type Severity Reaction Status Date / Time capsaicin [Diclopak] Allergy Unknown swelled, Unverified 12/20/22 21:41 itchy diclofenac [Diclopak] Allergy Unknown swelled, Unverified 12/20/22 21:41 itchy exemestane AdvReac Severe severe Unverified 12/20/22 21:41 diarrhea tamoxifen AdvReac Severe severe abd Unverified 12/20/22 21:41 pain Consultations 12/20/22 23:10 ED Decision to Admit Stat 12/21/22 08:00 Consult Nephrology Routine Consult Neurology Routine 12/21/22 13:01 Consult Silica Filter Operator Routine 12/21/22 20:50 Consult Gastroenterology Routine Ordered Studies 12/20/22 21:22 CT angio head w con Stat CT angio neck with con Stat CT head/brain wo con Stat 12/21/22 01:48 MR brain wo/w con Urgent 12/21/22 09:53 CT angio head w con Stat CT angio neck with con Stat CT head/brain wo con Stat 12/21/22 10:25 MRI Brain [MR brain wo con] Stat 12/21/22 19:49 CTA abdomen pelvis w con [CT angio abdomen pelvis w con] Urgent 12/22/22 09:32 CT head/brain wo con Stat Hospital Course (1) Acute CVA (cerebrovascular accident): This is an 82-year-old female who presents with acute stroke. 1. Acute cerebrovascular accident with weakness in the left upper extremity in the hand and forearm. Symptoms initially improved. Imaging studies in ED showing occlusion of the right carotid artery from the cervical region through the petrous portion and reconstitution of the cavernous segment of the right internal carotid artery. The supraclinoid portion is patent, possibly from collateral flow. The M1 segment and distal middle cerebral branches are patent, although slightly diminutive from the previous exam. No thrombus were identified. [facility]ist thought that no intervention is needed at this time and was loaded with aspirin and statin, and also given magnesium and fluids and to call back [facility] if anything changes. Full stroke workup with MRI scan ordered. Continue with IV fluids. Permissive hypertension. Echocardiogram. Consult neurology. PT, OT. Will keep n.p.o. until seen by speech. Echo - normal LV chamber size with moderate concentric LVH, sigmoid appearing septum. Normal LV systolic function, EF 55 to 60%. No segmental LV wall motion abnormalities are noted. Grade 1 diastolic dysfunction. The interatrial septum is intact with no evidence for an ASD. Injection of contrast documented no interatrial shunt. Aortic valve sclerosis moderate, without significant aortic valvular stenosis. Brain MRI IMPRESSION: Punctate infarct in the right parietal lobe. No intraparenchymal hemorrhage is seen. 12/21 during PT session today, pt became more weak (in left UE), had more slurred speech/ word finding difficulty and was not following commands as before Stroke alert was called [facility] was called and discussed the case with - CT head w/o con, CTA head and neck obtained, brain MRI limited sequence also requested and obtained Initial evaluation, left upper extremity weakness/flaccid, able to answer yes and no questions, however not able to speak in full sentences. Reportedly during imaging studies patient very restless, when discussed this with [facility], they worry about possible seizure, and EEG also recommended After coming back from MRI, patient more alert, and her function much improved. Able to move her left upper extremity, able to move lower extremities somewhat as well. Able to answer questions much more coherently. Even though still continues to have some word finding difficulty and somewhat slurred speech. Given this episode, patient will for now stay in ICU for further monitoring. Per [facility] -recommend to lay flat, and recommend permissive hypertension, up to blood pressure of 200/110. Obtain EEG. Loaded with Plavix and continue Plavix daily with aspirin and statin. Consult vascular surgery for possible endarterectomy, for internal carotid occlusion. The above episode, and my conversation with [facility] was also discussed with inpatient neurologist, Dr. Ambriz, appreciate his input. 12/22 This morning, however patient less responsive, with poor eye contact, not able to take p.o. stat CT head was obtained, and showed progression of stroke. I was contacted by ICU physician about her worsening status, and new CT head results. I was then immediately present at the bedside. Patient obtunded and after discussing with family over the phone, patient being intubated. As patient was being intubated, I was contacting [facility], and discussed new findings and possible transfer to [facility]. Discussed with the stroke neurologist, as well as ICU neurologist, at this point no procedure was planned and they would be only able to provide supportive care. In addition patient's blood pressure dropped significantly as well, and is now requiring Levophed. Discussed this with daughter at the bedside. She was able to contact her brother and father. They were able to locate patient's wishes which were not consistent with current care, and so extubation planned. CODE STATUS changed to DNR/DNI. Pt was extubated after discussing with family. Pt at 14:36. 2. Hypertension:permissive hypertension allowed. Pt continued to be hypertensive. Continued her Coreg. After intubation patient became hypotensive, requiring IV Levophed. Care per ICU team. 3. History of gastric ulcer in the past, history of and AVMs and Damian's. She was on iron supplements in the past. Her EGD done in November 2021 was unremarkable.O admission, her hemoglobin is 8.9.stool Hemoccult, vitamin B12, folate levels, and iron studies ordered. Plan was to consult with GI once stable. Continued omeprazole. Overnight developed GI bleed, several bloody bowel movements, after being on aspirin and loaded with Plavix. CT abdomen pelvis obtained by ICU team. GI consulted. 4. Alcoholism: Drinks 2-3 glasses of red wine daily. Denies any withdrawal symptoms.Gave thiamine and folic acid. Continued her home multivitamins. Monitored for any withdrawal symptoms. 5. Tobacco abuse. 6. History of thoracic aortic aneurysm: echo obtained, as above. 7. History of left breast cancer in 2010: Status post partial left breast lumpectomy. 8. Hx of Post Polio syndrome. PT/OT Total Time Total Time Spent Total Time Spent (In Minutes): 40 Discharge Plan Discharge Items Patient Disposition: Other Date/Time: 12/22/22 14:36
[2022-12-22] MEDS ORDERED: fentaNYL citrate 100 MCG/2 ML CARP IV ONE (15:44)
[2022-12-22] MEDS ORDERED: ETOMIDATE 2 MG/ML 20 ML VIAL IV ONE (15:44)
[2022-12-22] MEDS ORDERED: ROCURONIUM BROMIDE 10 MG/ML 5 ML VIAL IV ONE (15:44)
[2022-12-23] MEDS ORDERED: lisinopril 20 MG TAB PO SCH (09:00)
== END 2022-12-22 15:45 | disposition expired | DRG 65 ==
LOC: ED 21:24 → 2W 12-21 00:21 → 1E 12-21 12:12